=== PATIENT | male | born 1950 | race Caucasian/White ===

== ENCOUNTER 2022-08-08 08:59 | Outpatient (CLI) | payer MEDICARE, SELFPAY ==
[2022-08-08 14:24] LABS: SARS PCR* Negative SARS-CoV-2 (Negative)
== END 2022-08-08 09:00 | disposition home or self-care (01) ==
LOC: FBOREF 08:59
PROVIDERS: Visit Provider Orthopaedic Surgery
DX: Z20.822 Contact with and (suspected) exposure to COVID-19 (principal)
CPT/HCPCS: 87635

== ENCOUNTER 2022-08-24 09:00 | Outpatient (CLI) | payer MEDICARE, SELFPAY ==
--- OUTSIDE RECORDS SUMMARY | 2022-08-24 09:08 | XMS_ITS | Encounter Summary ---
:1950 Author Organization Department [facility] Address [address] [place] [id number] Support Name Relationship Address Phone GARETH ALTMAN Unavailable [phone] [phone] [place] [address] GARETH ALTMAN Unavailable [phone] [place] [address] Insurance Providers: All historical and current Section Date Range: From patient's date of to the date document was created.This section includes the names of all active insurance providers for the patient. Insurance Type of Plan Start of End of Group Member Insurance Policy P atient's Provider Coverage Name Policy Policy Number ID Provider's Fuentes's Relationship Coverage Coverage Telephone Name to Policy Number Fuentes MEDICARE MEDICARE PART February 06, PART A [id number] HARMEN ING PATIENT (WNR) (M) A [id number] ,[place] MEDICARE MEDICARE PART February 06, PART B [phone] HARMEN ING PATIENT (WNR) (M) B [id number] ,[place] MEDICARE MEDICARE PART February 06, PART A [id number] HARMEN ING PATIENT (WNR) (M) A [id number] ,[place] MEDICARE MEDICARE PART February 06, PART B [id number] HARMEN ING PATIENT (WNR) (M) B [id number] ,[place] MEDICARE MEDICARE PART February 06, PART A [id number] HARMEN ING PATIENT (WNR) (M) A [id number] ,[place] MEDICARE MEDICARE PART February 06, PART B [id number] HARMEN ING PATIENT (WNR) (M) B [id number] [place] MEDICARE MEDICARE PART February 06, PART A [id number] KY[address] Daniel ATIENT (WNR) (M) A [id number] [phone] ,[place] MEDICARE MEDICARE PART February 06, PART B [id number] KYARA Daniel ATIENT (WNR) (M) B [id number] [phone] ,[place] Selected Encounter This section includes the information on record at [place] for the Encounter. Date/Time Encounter Type Encounter Reason Provider Source Description Nov 18, 2021 05:06 Outpatient PRIMARY DINORAH STORY PM Encounter CARE/MEDICINE [facility] Encounter Template Text not used by [place] Plan of Treatment: Future Appointments (+ 6 months) and Future Tests (+/- 45 days) The Plan of Treatment section includes future care activities for the patient from all [place] treatmentfacilities. This section includes future appointments and future orders which are active, pending orscheduled.Future Appointments This section includes appointments that were scheduled to occur 6 months from the date of the Encounter, up to a maximum of 20 appointments. The data comes from all [place] treatment facilities. Appointment Date/Time Appointment Type Appointment Facili ty Name Jan 14, 2022 11:00 AM [facility]ORY - [facility]IC[facility] Jan 14, 2022 11:40 AM [facility] - [facility] Jan 28, 2022 07:00 AM AMBULATORY - NONE [facility] Feb 01, 2022 09:00 AM AMBULATORY [facility] Encounter Notes: All associated encounter notes This section contains the clinical notes associated to the Encounter. Date/Time Encounter Note(s) Provider Source Nov 18, 2021 05:06 PM PRIMARY CARE SECURE MESSAGING: Cl STORY [facility] LOCAL TITLE: PRIMARY CARE SECURE MESSAGING STANDARD TITLE: PRIMARY CARE SECURE MESSAGING DATE OF NOTE: NOV 18, 2021@17:06 ENTRY DATE: NOV 18, 2021@17:06:58 AUTHOR: DINORAH STORY EXP COSIGNER: URGENCY: STATUS: COMPLETED ------Original Message Sent: 11/18/2021 10:35 AM From: VIELKA SPARROW To: [email or web address] Subject: Prescription refill Dr. Campbell, I don't know who to ask, so I ho pe you can research or direct me. I submitted a prescription refill #[id number] on 09/29/21. I have not yet received it. I did already get the bill and paid it. I live at [address] [place] [address] dr Mccoy [place] up until December 06. Thank-You ------Original Message Sent: 11/18/2021 05:06 PM From: DINORAH STORY To: VIELKA SPARROW Subject: Prescription refill Looking at your chart, It appears that the prescription was mailed to y our [place] address. That's the only address we have on file for you. In the future, what you need to do is tell the H front staff your local address and the dates you will be at that location. Unless they add that to file, all meds will be mailed t o whatever address we have for you. You can also call the pharmacy at [phone], ext [phone] and discuss your concerns and questions about bi lling. Hope that helps. Dr. Lopez /ayshira/ DINORAH STORY DO PRIMARY CARE PHYSICIAN Signed: 11/18/2021 17:06
--- OUTSIDE RECORDS SUMMARY | 2022-08-24 09:08 | XMS_ITS | Continuity of Care Document ---
:1950 Author Organization [facility] Care Team Providers Name Role Phone [facility] Unavailable Unavailable Problems Combined list of problems from Department of Defense and Veterans Affairs facilities. It does not include entries that were removed or entered in error. Problem Status Onset Problem Date of Comments Source Date Type Resolution Polyp Colon (SCT Active 09/24/20 Condition Oct 21, IPPEWA [id number]) 2019 Entered [facility] By: REI SALDIVAR Comment: Tubular adenomata x 2, each 4 or 5 mm, ascending colon. Dr. Aubrie Weber. Repeat colonoscopy in 2023 Alcohol dependence Active Condition [facility] (SNOMED CT [id number]) CLINIC Bilateral Active Condition [facility] osteoarthritis of CL INIC knees Bilateral sensory Active Condition [facility] hearing loss [facility] Cataract Active Condition [facility] Erectile dysfunction Active Condition [facility] (SNOMED CT CLINIC [id number]) Herpes zoster Active Condition Jan 14, [facility] 2021 Entered [facility] By: CARMEN GARCIA Comment: 12/2021 History of male Active Condition [facility] erectile disorder CL INIC Osteoarthritis of Active Condition [facility] left knee joint CLIN IC (SNOMED CT [id number]) Tinnitus Active Condition [facility] CLINIC Tobacco use (SNOMED Active Condition [facility] CT [id number]) CLINIC Diagnosis: ICD-10-CM Active Diagnosis [facility] Z01.818 Encounter [facility] for other preprocedural examinationwith Provider Comments: PreOp Exam Diagnosis: ICD-10-CM Active Diagnosis [place] Z71.9 Counseling, [place] [facility] unspecifiedwith Provider Comments: Counseling, unspecified Diagnosis: ICD-10-CM Active Diagnosis [facility] M17.12 Unilateral [facility] primary osteoarthritis, left kneewith Provider Comments: Osteoarthritis of left knee joint (SCT 927662050817411) Diagnosis: ICD-10-CM Active Diagnosis [facility] B02.9 Zoster without [facility] complicationswith Provider Comments: Herpes zoster (SCT [id number]) Diagnosis: ICD-10-CM Active Diagnosis [place] H90.3 Sensorineural CLINIC hearing loss, bilateralwith Provider Comments: Sensorineural Hearing Loss, Bilateral Diagnosis: ICD-10-CM Active Diagnosis [facility] Z46.1 Encounter for [facility] fitting and adjustment of hearing aidwith Provider Comments: Fit/Adjust of Hearing Aid Medications Combined list of outpatient medications from Department of Defense and Veterans Affairs facilities. Medications provided include 1) outpatient medications from the last 15 months, and 2) patient-reported medications. Medication Details Route Status Patient Prescription Prescription Last Ordering Order Source Instructions Expires Number Dispense Provider Date Date ASPIRIN TAKE ONE ORALLY ACTIVE [address] . 325MG TAB TABLET [place]H [place]ON 2010 YURI BY MOUTH [facility] EVERY CLINIC DAY ASPIRIN TAKE ONE ORAL ACTIVE HANYZESKI 01/01/ C.W . 81MG TAB,EC TABLET ,DINORAH K 2019 BILL BY MOUTH YOUNG EVERY DEPT OF DAY [facility] HERBAL MISC TAKE ORAL ACTIVE HANYZESKI 01/01/ C. W. CAP/TAB HERBAL ,DINORAH K 2019 BILL CAP/TAB FIBER YOUNG BLEND BY DEPT OF MOUTH [facility] EVERY DAY HERBAL MISC TAKE ORAL ACTIVE HANYZESKI 01/01/ C. W. CAP/TAB BARLEY ,DINORAH K 2019 BILL CAP/TAB GREEN BY YOUNG MOUTH DEPT OF EVERY [facility] DAY MULTIVITAMI TAKE ONE ORALLY ACTIVE MARYELLEN, 04/27 / [facility] NS CAP/TAB TABLET NANCIE D 2016 [facility] BY MOUTH [facility] EVERY DAY NON [facility] MED USE ACTIVE MARYELLEN, 11/01/ ST. NOT LISTED HERBAL NANCIE D 2013 YURI [place] BLEND CLINIC Oral DAILY NON [facility] MED USE ACTIVE MARYELLEN, 11/01/ ST. NOT LISTED BARLEY NANCIE D 2013 YURI [place] oral CLINIC DAILY SILDENAFIL TAKE ORAL 01/05/2022 [id number] HANYZE SKI 03/01/ C.W. CITRATE ONE-HALF 1 ,DINORAH K 2020 BILL 100MG TAB TABLET YOUNG BY MOUTH DEPT OF ONE HOUR [facility] BEFORE SEXUAL RELATION S - DO NOT TAKE MORE THAN 1 DOSE PER DAY (*90 DAY SUPPLY*) Allergies, Adverse Reactions, Alerts Combined list of allergies from Department of Defense and Veterans Affairs facilities. It does not include entries that were removed or entered in error. Substance Category Reaction Severity Reaction Status Date Comments S ource type Reported CODEINE Propensity Nausea Propensity active [place] to adverse and to adverse 4 S [facility] reactions vomiting reactions to drug to drug (finding) (finding) OXYCODONE Propensity Propensity active [facility] BILL to adverse to adverse 0 YO [facility] reactions reactions OF [facility] to drug to drug (finding) (finding) Immunizations Combined list of available immunizations from the Department of Defense and Veterans Affairs facilities. 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 Order Results Value Reference Date Interpretation Specimen Commen ts Source Name Range CBC LEUKOCYTES 6.34 4.0 - 11.0 07/25 Specimen T ype: BLOOD [facility] [#/VOLUME] /2021 No comment en tered. [facility] IN BLOOD Ordering Provi fatoumata: MAURICE GARCIA BY Report Released Date/Time: Jul 23, 2022 10:48 AM AUTOMATED Reporting Lab : [facility] [address] [place] [address] Performing Lab: [facility] [place] [address] CBC ERYTHROCYT 5.10 4.6 - 6.2 07/25 Specimen Ty pe: BLOOD [facility] ES /2021 No comment enter ed. BROWN [#/VOLUME] Ordering Pro vider: MAURICE GARCIA IN BLOOD Report Release d Date/Time: Jul 23, 2022 10:48 AM BY Reporting Lab: [facility] [address] [facility] [address] COUNT Performing Lab: [facility] [address] [place] [facility] [address] CBC HEMOGLOBIN 16.5 13.5 - 07/25 Specimen Type : BLOOD [facility] [facility] [MASS/VOLU 17.9 No comment sanford BROWN ME] IN Ordering Provid er: MAURICE GARCIA BLOOD Report Released Date/Time: Jul 23, 2022 10:48 AM Reporting Lab: [facility] [address] [place] [facility] [address] Performing Lab: [facility] [address] [place] [facility] [address] CBC HEMATOCRIT 47.9 41 - 54 07/25 Specimen Type : BLOOD [facility] [facility] [VOLUME /2021 No comment enter ed. BROWN FRACTION] Ordering Prov ider: MAURICE GARCIA [facility] OF BLOOD Report Release d Date/Time: Jul 23, 2022 10:48 AM BY Reporting Lab: [facility] [address] [facility] [address] COUNT Performing Lab: [facility] [address] [place] [facility] [address] CBC MCV 93.9 80 - 100 07/25 Specimen Type: BLOOD [facility] [ENTITIC /2021 No comment ente red. BROWN VOLUME] BY Ordering Pro vider: MAURICE GARCIA CBOC AUTOMATED Report Releas ed Date/Time: Jul 23, 2022 10:48 AM COUNT Reporting Lab: [facility] [address] [place] [facility] [address] Performing Lab: [facility] [address] [place] [facility] [address] CBC MCH 32.4 27 - 33 07/25 Specimen Type: B LOOD [facility] [ENTITIC /2021 No comment ente red. BROWN MASS] BY Ordering Provi fatoumata: MAURICE GARCIA CBOC AUTOMATED Report Releas ed Date/Time: Jul 23, 2022 10:48 AM COUNT Reporting Lab: [facility] [address] [place] [facility] [address] Performing Lab: [facility] [address] [place] [facility] [address] CBC MCHC 34.4 32.0 - 07/25 Specimen Type: B LOOD [place] [facility] [MASS/VOLU 37.5 No comment en tered. BROWN ME] BY Ordering Provid er: MAURICE GARCIA CBOC AUTOMATED Report Releas ed Date/Time: Jul 23, 2022 10:48 AM COUNT Reporting Lab: [facility] [address] [place] [facility] [address] Performing Lab: [facility] [address] [place] [facility] [address] CBC PLATELETS 245 150 - 400 07/25 Specimen Typ e: BLOOD [place] [facility] [#/VOLUME] /2021 No comment en tered. [facility] IN BLOOD Ordering Provi fatoumata: MAURICE GARCIA CBOC BY Report Released Date/Time: Jul 23, 2022 10:48 AM AUTOMATED Reporting Lab : [facility] [address] [place] [address] Performing Lab: [facility] [address] [place] [address] CBC PLATELET 11.2 7.4 - 10.4 07/25 H Specimen Typ e: BLOOD [facility] MEAN /2021 No comment enter ed. KEVIN VOLUME Ordering Provid er: MAURICE GARCIA CBOC [ENTITIC Report Release d Date/Time: Jul 23, 2022 10:48 AM VOLUME] IN Reporting La b: [facility] [place] [address] AUTOMATED Performing La b: [facility] [address] [place] [address] CBC ERYTHROCYT 12.8 11.5 - 07/25 Specimen Type : BLOOD [facility] E 14.5 No comment enter divya. KEVIN DISTRIBUTI Ordering Pro vider: MAURICE GARCIA [facility]OC ON WIDTH Report Release d Date/Time: Jul 23, 2022 10:48 AM [RATIO] BY Reporting La b: [facility] [place] [address] COUNT Performing Lab: [facility] [place] [address] COMPREHEN CREATININE 0.9 0.7 - 1.2 07/25 Specimen Type: PLASMA [facility] SIVE [MASS/VOLU /2021 No comment en skyla. KEVIN METABOLIC ME] IN Ordering Prov ider: MAURICE GARCIA CBOC PANEL+MG SERUM OR Report Releas ed Date/Time: Jul 23, 2022 10:48 AM PLASMA Reporting Lab: [facility] [place] [address] Performing Lab: [facility] [place] [address] COMPREHEN UREA 15 8 - 26 07/25 Specimen Type: PLASMA [facility] SIVE NITROGEN /2021 No comment melnai BROWN METABOLIC [MASS/VOLU Ordering P rovider: MAURICE GARCIA CBOC PANEL+MG ME] IN Report Release d Date/Time: Jul 23, 2022 10:48 AM SERUM OR Reporting Lab: [facility] [address] [place] [facility] [address] Performing Lab: [facility] [address] [place] [facility] [address] COMPREHEN GLUCOSE 114 70 - 100 10 H Specimen Type : PLASMA [facility] SIVE [MASS/VOL No comment en tered. KEVIN METABOLIC ME] IN Ordering Prov ider: MAURICE GARCIA CBOC PANEL+MG SERUM OR Report Releas ed Date/Time: Jul 23, 2022 10:48 AM PLASMA Reporting Lab: [facility] [address] [place] [facility] [address] Performing Lab: [facility] [address] [place] [facility] [address] COMPREHEN SODIUM 136 136 - 145 07/25 Specimen Typ e: PLASMA [facility] SIVE [MOLE/ No comment en tered. KEVIN METABOLIC UME] IN Ordering Prov ider: MAURICE GARCIA CBOC PANEL+MG SERUM OR Report Releas ed Date/Time: Jul 23, 2022 10:48 AM PLASMA Reporting Lab: [facility] [address] [place] [facility] [address] Performing Lab: [facility] [address] [place] [facility] [address] COMPREHEN POTASSIUM 3.9 3.5 - 5.1 07/25 Specimen T ype: PLASMA [facility] SIVE [/ No comment en tered. KEVIN METABOLIC UME] IN Ordering Prov ider: MAURICE GARCIA CBOC PANEL+MG SERUM OR Report Releas ed Date/Time: Jul 23, 2022 10:48 AM PLASMA Reporting Lab: [facility] [address] [place] [facility] [address] Performing Lab: [facility] [address] [place] [facility] [address] COMPREHEN CHLORIDE 103 98 - 107 07/25 Specimen Typ e: PLASMA [facility] SIVE [MOLE/ No comment en tered. BROWN METABOLIC UME] IN Ordering Prov ider: MAURICE GARCIA CBOC PANEL+MG SERUM OR Report Releas ed Date/Time: Jul 23, 2022 10:48 AM PLASMA Reporting Lab: [facility] [address] [place] [facility] [address] Performing Lab: [facility] [address] [place] [facility] [address] COMPREHEN CARBON 28 22 - 29 07/25 Specimen Type: PLASMA [facility] SIVE DIOXIDE /2021 No comment melani [facility] METABOLIC TOTAL Ordering Prov ider: MAURICE GARCIA [facility]OC PANEL+MG [MOLES/VOL Report Rele ased Date/Time: Jul 23, 2022 10:48 AM UME] IN Reporting Lab: [facility] SERUM OR [address] [place] [facility] [address] PLASMA Performing Lab: [facility] [address] [place] [facility] [address] COMPREHEN CALCIUM 9.4 8.4 - 10.2 07/25 Specimen Ty pe: PLASMA [facility] SIVE [MASS/VOLU /2021 No comment sanford [facility] METABOLIC ME] IN Ordering Prov ider: MAURICE GARCIA CBOC PANEL+MG SERUM OR Report Releas ed Date/Time: Jul 23, 2022 10:48 AM PLASMA Reporting Lab: [facility] [address] [place] [facility] [address] Performing Lab: [facility] [address] [place] [facility] [address] COMPREHEN PROTEIN 7.0 6.0 - 8.3 07/25 Specimen Typ e: PLASMA [facility] SIVE [MASS/VOLU /2021 No comment sanford BROWN METABOLIC ME] IN Ordering Prov ider: MAURICE GARCIA CBOC PANEL+MG SERUM OR Report Releas ed Date/Time: Jul 23, 2022 10:48 AM PLASMA Reporting Lab: [facility] [address] [place] [facility] [address] Performing Lab: [facility] [address] [place] [facility] [address] COMPREHEN ALBUMIN 4.2 3.5 - 5.2 07/25 Specimen Typ e: PLASMA [facility] SIVE [MASS/VOLU /2021 No comment en tered. BROWN METABOLIC ME] IN Ordering Prov ider: MAURICE GARCIA CBOC PANEL+MG SERUM OR Report Releas ed Date/Time: Jul 23, 2022 10:48 AM PLASMA Reporting Lab: [facility] [address] [place] [facility] [address] Performing Lab: [facility] [address] [place] [facility] [address] COMPREHEN BILIRUBIN. 0.6 0.2 - 1.2 07/25 Specimen Type: PLASMA [facility] SIVE TOTAL /2021 No comment enter ed. KEVIN METABOLIC [MASS/VOLU Ordering P rovider: MAURICE GARCIA CBOC PANEL+MG ME] IN Report Release d Date/Time: Jul 23, 2022 10:48 AM SERUM OR Reporting Lab: [facility] [address] [place] [facility] [address] Performing Lab: [facility] [address] [place] [facility] [address] COMPREHEN MAGNESIUM 2.1 1.6 - 2.6 07/25 Specimen T ype: PLASMA [facility] SIVE [MASS/VOLU /2021 No comment en tered. KEVIN METABOLIC ME] IN Ordering Prov ider: MAURICE GARCIA CBOC PANEL+MG SERUM OR Report Releas ed Date/Time: Jul 23, 2022 10:48 AM PLASMA Reporting Lab: [facility] [address] [place] [facility] [address] Performing Lab: [facility] [address] [place] [facility] [address] COMPREHEN ANION GAP 5 5 - 15 07/25 Specimen Typ e: PLASMA [facility] SIVE IN SERUM /2021 No comment ente red. KEVIN METABOLIC OR PLASMA Ordering Pr ovider: MAURICE GARCIA CBOC PANEL+MG Report Release d Date/Time: Jul 23, 2022 10:48 AM Reporting Lab: [facility] [address] [place] [facility] [address] Performing Lab: [facility] [address] [place] [facility] [address] COMPREHEN ALKALINE 62 40 - 150 07/25 Specimen Typ e: PLASMA [facility] SIVE PHOSPHATAS /2021 No comment en tered. KEVIN METABOLIC E Ordering Prov ider: MAURICE GARCIA [facility]OC PANEL+MG [ENZYMATIC Report Rele ased Date/Time: Jul 23, 2022 10:48 AM ACTIVITY/V Reporting La b: [facility] OLUME] IN [address] [facility] [address] SERUM OR Performing Lab : [facility] PLASMA [address] [place] [facility] [address] COMPREHEN ALANINE 16 <55 - 55 07/25 Specimen Type : PLASMA [facility] SIVE AMINOTRANS /2021 No comment en tered. KEVIN METABOLIC FERASE Ordering Prov ider: MAURICE GARCIA CBOC PANEL+MG [ENZYMATIC Report Rele ased Date/Time: Jul 23, 2022 10:48 AM ACTIVITY/V Reporting La b: [facility] OLU[facility]] IN [address] [facility] [address] [facility] [address] SERUM OR Performing Lab : [facility] [address] [place] [facility] [address] COMPREHEN ASPARTATE 17 <34 - 34 07/25 Specimen Ty pe: PLASMA [facility] SIVE AMINOTRANS /2021 No comment en tered. BROWN METABOLIC FERASE Ordering Prov ider: MAURICE GARCIA CBOC PANEL+MG [ENZYMATIC Report Rele ased Date/Time: Jul 23, 2022 10:48 AM ACTIVITY/V Reporting La b: [facility]] IN ONE [facility] [address] SERUM OR Performing Lab : [facility] [address] [place] [facility] [address] COMPREHEN GLOMERULAR >90 60 07/25 Specimen Ty pe: PLASMA [facility] SIVE FILTRATION /2021 No comment en tered. KEVIN METABOLIC RATE/1.73 Ordering Pr ovider: MAURICE GARCIA CBOC PANEL+MG SQ Report Release d Date/Time: Jul 23, 2022 10:48 AM M.PREDICTE Reporting La b: [facility] D [VOLUME [facility] [address] RATE/AREA] Performing L ab: [facility] IN SERUM, ONE [facility] [address] PLASMA OR BLOOD BY CREATININE -BASED FORMULA (CKD-EPI) CBC LEUKOCYTES 6.72 4.0 - 11.0 01/14 Specimen T ype: BLOOD [facility] [#/VOLUME] /2021 No comment en tered. [facility] IN BLOOD Ordering Provi fatoumata: MAURICE GARCIA CBOC BY Report Released Date/Time: Jan 14, 2022 07:54 AM AUTOMATED Reporting Lab : [facility] [address] [place] [facility] [address] Performing Lab: [facility] [address] [place] [facility] [address] CBC ERYTHROCYT 4.76 4.6 - 6.2 01/14 Specimen Ty pe: BLOOD [facility] ES /2021 No comment enter ed. KEVIN [#/VOLUME] Ordering Pro vider: MAURICE GARCIA [facility] IN BLOOD Report Release d Date/Time: Jan 14, 2022 07:54 AM BY Reporting Lab: [facility]ATED [facility] [place] [facility] [address] COUNT Performing Lab: [facility] [address] [place] [address] CBC HEMOGLOBIN 15.4 13.5 - 01/14 Specimen Type : BLOOD [facility] [MASS/VOLU 17.9 No comment en tered. BROWN ME] IN Ordering Provid er: MAURICE GARCIA BLOOD Report Released Date/Time: Jan 14, 2022 07:54 AM Reporting Lab: [facility] [address] [place] [facility] [address] Performing Lab: [facility] [place] [address] CBC HEMATOCRIT 46.0 41 - 54 01/14 Specimen Type : BLOOD [facility] [VOLUME /2021 No comment enter ed. BROWN FRACTION] Ordering Prov ider: MAURICE GARCIA OF BLOOD Report Release d Date/Time: Jan 14, 2022 07:54 AM BY Reporting Lab: [facility] [place] [facility] [address] COUNT Performing Lab: [facility] [address] [place] [facility] [address] CBC MCV 96.6 80 - 100 01/14 Specimen Type: BLOOD [facility] [ENTITIC No comment melani sharpe BROWN VOLUME] BY Ordering Pro vider: MAURICE GARCIA CBOC AUTOMATED Report Releas ed Date/Time: Jan 14, 2022 07:54 AM COUNT Reporting Lab: [facility] [address] [place] [facility] [address] Performing Lab: [facility] [address] [place] [facility] [address] CBC MCH 32.4 27 - 33 01/14 Specimen Type: B LOOD [facility] [ENTITIC /2021 No comment ente red. BROWN MASS] BY Ordering Provi fatoumata: MAURICE GARCIA CBOC AUTOMATED Report Releas ed Date/Time: Jan 14, 2022 07:54 AM COUNT Reporting Lab: [facility] [address] [place] [facility] [address] Performing Lab: [facility] [place] [address] CBC MCHC 33.5 32.0 - 01/14 Specimen Type: B LOOD [facility] [MASS/VOLU 37.5 /2021 No comment en tered. BROWN ME] BY Ordering Provid er: MAURICE GARCIA CBOC AUTOMATED Report Releas ed Date/Time: Jan 14, 2022 07:54 AM COUNT Reporting Lab: [facility] [address] [place] [address] Performing Lab: [facility] [address] [place] [address] CBC PLATELETS 268 150 - 400 01/14 Specimen Typ e: BLOOD [facility] [#/VOLUME] /2021 No comment en tered. BROWN IN BLOOD Ordering Provi fatoumata: MAURICE GARCIA CBOC BY Report Released Date/Time: Jan 14, 2022 07:54 AM AUTOMATED Reporting Lab : [facility] [address] [place] [address] Performing Lab: [facility] [address] [place] [address] CBC PLATELET 10.4 7.4 - 10.4 01/14 Specimen Typ e: BLOOD [facility] MEAN /2021 No comment enter ed. KEVIN VOLUME Ordering Provid er: MAURICE GARCIA CBOC [ENTITIC Report Release d Date/Time: Jan 14, 2022 07:54 AM VOLUME] IN Reporting La b: [facility] BLOOD BY [address] [place] [facility] [address] AUTOMATED Performing La b: [facility] [place] [address] CBC ERYTHROCYT 12.8 11.5 - 01/14 Specimen Type : BLOOD [facility] E 14.5 No comment enter ed. KEVIN DISTRIBUTI Ordering Pro vider: MAURICE GARCIA ON WIDTH Report Release d Date/Time: Jan 14, 2022 07:54 AM [RATIO] BY Reporting La b: [facility] [address] [facility] [address] COUNT Performing Lab: [facility] [address] [place] [address] HEMOGLOBI HEMOGLOBIN 5.3 4.0 - 6.0 01/14 Specimen Type: BLOOD [facility] N A1C A1C/HEMOGL /2021 No comment en tered. BROWN OBIN.TOTAL Ordering Pro vider: MAURICE GARCIA IN BLOOD Report Release d Date/Time: Jan 14, 2022 07:54 AM Reporting Lab: [facility] [address] [place] [address] Performing Lab: [facility] [place] [address] VIT D 25-HYDROXY 60 12 - 50 01/14 H Specimen Type : SERUM [facility] C 25-OH,TOT VITAMIN D3 /2021 No comment entered. KEVIN AL [MASS/VOLU Ordering Pro vider: MAURICE GARCIA CBOC ME] IN Report Released Date/Time: Jan 14, 2022 07:54 AM SERUM OR Reporting Lab: [facility] [address] [place] [facility] [address] Performing Lab: [facility] [address] [place] [facility] [address] COMPREHEN CREATININE 0.9 0.7 - 1.2 01/14 Specimen Type: PLASMA [facility] SIVE [MASS/VOLU /2021 No comment en tered. BROWN METABOLIC ME] IN Ordering Prov ider: MAURICE GARCIA CBOC PANEL+MG SERUM OR Report Releas ed Date/Time: Jan 14, 2022 07:54 AM PLASMA Reporting Lab: [facility] [address] [place] [facility] [address] Performing Lab: [facility] [address] [place] [facility] [address] COMPREHEN UREA 11 8 - 26 01/14 Specimen Type: PLASMA [facility] SIVE NITROGEN /2021 No comment ente redMulu BROWN METABOLIC [MASS/VOLU Ordering P rovider: MAURICE GARCIA CBOC PANEL+MG ME] IN Report Release d Date/Time: Jan 14, 2022 07:54 AM SERUM OR Reporting Lab: [facility] [address] [place] [facility] [address] Performing Lab: [facility] [address] [place] [facility] [address] COMPREHEN GLUCOSE 96 74 - 100 01/14 Specimen Type : PLASMA [facility] SIVE [MASS/VOLU /2021 No comment en tered. BROWN METABOLIC ME] IN Ordering Prov ider: MAURICE GARCIA CBOC PANEL+MG SERUM OR Report Releas ed Date/Time: Jan 14, 2022 07:54 AM PLASMA Reporting Lab: [facility] [address] [place] [facility] [address] Performing Lab: [facility] [address] [place] [facility] [address] COMPREHEN SODIUM 141 136 - 145 01/14 Specimen Typ e: PLASMA SOCORRO C SIVE [MOLES/VOL /2021 No comment en tered. BROWN METABOLIC UME] IN Ordering Prov ider: MAURICE GARCIA [facility] PANEL+MG SERUM OR Report Relea sed Date/Time: Jan 14, 2022 07:54 AM PLASMA Reporting Lab: [facility] [address] [place] [facility] [address] Performing Lab: [facility] [address] [place] [facility] [address] COMPREHEN POTASSIUM 4.4 3.5 - 5.1 01/14 Specimen T ype: PLASMA SOCORRO C SIVE [MOLES/VOL /2021 No comment en tered. BROWN METABOLIC UME] IN Ordering Prov ider: MAURICE GARCIA [facility] PANEL+MG SERUM OR Report Releas ed Date/Time: Jan 14, 2022 07:54 AM PLASMA Reporting Lab: [facility] [address] [place] [facility] [address] Performing Lab: [facility] [address] [place] [facility] [address] COMPREHEN CHLORIDE 103 98 - 107 01/14 Specimen Typ e: PLASMA SOCORRO C SIVE [MOLES/VOL No comment en tered. BROWN METABOLIC UME] IN Ordering Prov ider: MAURICE GARCIA CBOC PANEL+MG SERUM OR Report Releas ed Date/Time: Jan 14, 2022 07:54 AM PLASMA Reporting Lab: [facility] [address] [place] [facility] [address] Performing Lab: [facility] [address] [place] [facility] [address] COMPREHEN CARBON 24 22 - 29 01/14 Specimen Type: PLASMA [facility] C SIVE DIOXIDE, /2021 No comment entantonella red. BROWN METABOLIC TOTAL Ordering Prov ider: MAURICE GARCIA CBOC PANEL+MG [MOLES/VOL Report Rele ased Date/Time: Jan 14, 2022 07:54 AM UME] IN Reporting Lab: [facility] SERUM OR [address] [place] [facility] [address] PLASMA Performing Lab: [facility] [address] [place] [facility] [address] COMPREHEN CALCIUM 9.9 8.4 - 10.2 01/14 Specimen Ty pe: PLASMA SOCORRO C SIVE [MASS/VOLU /2021 No comment en tered. BROWN METABOLIC ME] IN Ordering Prov ider: NSUBUGA,MAURICE N CBOC PANEL+MG SERUM OR Report Releas ed Date/Time: Jan 14, 2022 07:54 AM PLASMA Reporting Lab: [facility] [address] [place] [facility] [address] Performing Lab: [facility] [address] [place] [facility] [address] COMPREHEN PROTEIN 7.1 6.0 - 8.3 01/14 Specimen Typ e: PLASMA [facility]RO C SIVE [MASS/VOLU /2021 No comment en tered. KEVIN METABOLIC ME] IN Ordering Prov ider: MAURICE GARCIA CBOC PANEL+MG SERUM OR Report Releas ed Date/Time: Jan 14, 2022 07:54 AM PLASMA Reporting Lab: [facility] [address] [place] [facility] [address] Performing Lab: [facility] [address] [place] [facility] [address] COMPREHEN ALBUMIN 4.4 3.5 - 5.2 01/14 Specimen Typ e: PLASMA SOCORRO C SIVE [MASS/VOLU /2021 No comment en tered. KEVIN METABOLIC ME] IN Ordering Prov ider: MAURICE GARCIA CBOC PANEL+MG SERUM OR Report Releas ed Date/Time: Jan 14, 2022 07:54 AM PLASMA Reporting Lab: [facility] [address] [place] [facility] [address] Performing Lab: [facility] [address] [place] [facility] [address] COMPREHEN BILIRUBIN. 0.9 0.2 - 1.2 01/14 Specimen Type: PLASMA SOC[facility]RO C SIVE TOTAL /2021 No comment enter ed. KEVIN METABOLIC [MASS/VOLU Ordering P rovider: MAURICE GARCIA CBOC PANEL+MG ME] IN Report Release d Date/Time: Jan 14, 2022 07:54 AM SERUM OR Reporting Lab: [facility] [address] [place] [facility] [address] Performing Lab: [facility] [address] [place] [facility] [address] COMPREHEN MAGNESIUM 2.1 1.6 - 2.6 01/14 Specimen T ype: PLASMA SOCORRO C SIVE [MASS/VOLU /2021 No comment en tered. KEVIN METABOLIC ME] IN Ordering Prov ider: MAURICE GARCIA CBOC PANEL+MG SERUM OR Report Releas ed Date/Time: Jan 14, 2022 07:54 AM PLASMA Reporting Lab: [facility] [address] [place] [facility] [address] Performing Lab: [facility] [address] [place] [facility] [address] COMPREHEN ANION GAP 14 5 - 15 01/14 Specimen Typ e: PLASMA SOCORRO C SIVE IN SERUM /2021 No comment ente red. KEVIN METABOLIC OR PLASMA Ordering Pr ovider: MAURICE GARCIA CBOC PANEL+MG Report Release d Date/Time: Jan 14, 2022 07:54 AM Reporting Lab: [facility] [address] [place] [facility] [address] Performing Lab: [facility] [address] [place] [facility] [address] COMPREHEN ALKALINE 60 40 - 150 01/14 Specimen Typ e: PLASMA SOCORRO C SIVE PHOSPHATAS /2021 No comment en tered. KEVIN METABOLIC E Ordering Prov ider: MAURICE GARCIA CBOC PANEL+MG [ENZYMATIC Report Rele ased Date/Time: Jan 14, 2022 07:54 AM ACTIVITY/V Reporting La b: [facility] OLUME] IN [address] [place] [facility] [address] SERUM OR Performing Lab : [facility] PL[facility]MA [address] [place] [facility] [address] COMPREHEN ALANINE 21 <55 - 55 01/14 Specimen Type : PLASMA SOCORRO C SIVE AMINOTRANS /2021 No comment en tered. KEVIN METABOLIC FERASE Ordering Prov ider: MAURICE GARCIA CBOC PANEL+MG [ENZYMATIC Report Rele ased Date/Time: Jan 14, 2022 07:54 AM ACTIVITY/V Reporting La b: [facility] OLUME] IN [address] [place] [facility] [address] SERUM OR Performing Lab : [facility] [address] [place] [facility] [address] COMPREHEN ASPARTATE 21 <34 - 34 01/14 Specimen Ty pe: PLASMA SOCORRO C SIVE AMINOTRANS /2021 No comment en tered. KEVIN METABOLIC FERASE Ordering Prov ider: MAURICE GARCIA CBOC PANEL+MG [ENZYMATIC Report Rele ased Date/Time: Jan 14, 2022 07:54 AM ACTIVITY/V Reporting La b: [facility] OLUME] IN [address] [facility] [address] [place] [facility] [address] SERUM OR Performing Lab : [facility] PLASMA [address] [place] [place] [facility] [address] COMPREHEN CREAT >90 60 01/14 Specimen Type: PLASMA SOCORRO C SIVE EGFR(CKD-E No comment en tered. BROWN METABOLIC PI) Ordering Prov ider: MAURICE GARCIA CBOC PANEL+MG Report Release d Date/Time: Jan 14, 2022 07:54 AM Reporting Lab: [facility] [address] [place] [place] [facility] [address] Performing Lab: [facility] [address] [place] [facility] [address] TSH THYROTROPI 0.63 0.35 - 01/14 Specimen Type : PLASMA SOCORRO C W/REFLEX N 4.94 /2021 No comment melani BROWN TO FREE [UNITS/VOL Ordering Pro vider: MAURICE GARCIA CBOC T4 UME] IN Report Released Date/Time: Jan 14, 2022 07:54 AM SERUM OR Reporting Lab: [facility] [address] [place] [facility] [address] Performing Lab: [facility] [address] [place] [place] [facility] [address] PSA PROSTATE 2.76 <4.00 - 01/14 Specimen Type: SERUM SOCORRO C SPECIFIC 4. No comment melani BROWN AG Ordering Provid er: MAURICE GARCIA CBOC [MASS/VOLU Report Relea sed Date/Time: Jan 14, 2022 07:54 AM ME] IN Reporting Lab: [facility] SERUM OR [address] [place] [facility] [address] PLASMA Performing Lab: [facility] [address] [place] [facility] [address] LIPID CHOLESTERO 190 <199 - 199 01/14 Specimen T ype: PLASMA SOCORRO C PANEL,FAS L No comment klever BROWN TING [MASS/VOLU Ordering Pro vider: MAURICE GARCIA CBPATSY ME] IN Report Released Date/Time: Jan 14, 2022 11:25 AM SERUM OR Reporting Lab: [facility] [address] [place] [place] [facility] [address] Performing Lab: [facility] [address] [place] [facility] [address] LIPID TRIGLYCERI 119 <149 - 149 01/14 Specimen T ype: PLASMA SOC[facility] C PANEL,FAS DE No comment ent ered. KEVIN COUCHG [MASS/VOLU Ordering Pro vider: MAURICE GARCIA CBOC NE] IN Report Released Date/Time: Jan 14, 2022 11:25 AM SERUM OR Reporting Lab: [facility] [address] [place] [facility] [address] Performing Lab: [facility] [address] [place] [facility] [address] LIPID CHOLESTERO 45 40 04/08 Specimen Type : PLASMA SOCORRO C PANEL,FAS L IN HDL /2021 No comment en tered. KEVIN COUCHG [MASS/VOLU Ordering Pro vider: MAURICE GARCIA CBOC NE] IN Report Released Date/Time: Jan 14, 2022 11:25 AM SERUM OR Reporting Lab: [facility] [address] [place] [facility] [address] Performing Lab: [facility] [address] [place] [facility] [address] LIPID CHOLESTERO 121 <99 - 99 04/08 H Specimen Typ e: PLASMA SOCORRO C PANEL,FAS L IN LDL /2021 No comment en tered. KEVIN TING [MASS/VOLU Ordering Pro vider: [facility]ICE [facility]] IN Report Released Date/Time: Jan 14, 2022 11:25 AM SERUM OR Reporting Lab: [facility] PL[facility] BY ONE [address]i [address] [facility] [address] CALCULATIO Performing L ab: [facility] N [address] [place] [facility] [address] LIPID CHOLESTERO 24 <29 - 29 04/08 Specimen Typ e: PLASMA SOCORRO C PANEL,FAS L IN VLDL /2021 No comment e ntered. KEVIN TING [MASS/VOLU Ordering Pro vider: MAURICE GARCIA CBOC NE] IN Report Released Date/Time: Jan 14, 2022 11:25 AM SERUM OR Reporting Lab: [facility] PLASMA BY ONE [address]i [address] [facility] [address] CALCULATIO Performing L ab: [facility] N [address] [place] [facility] [address] LIPID CHOLESTERO 145 <129 - 129 04/08 H Specimen T ype: PLASMA SOC[facility]RO C PANEL,FAS L NON HDL /2021 No comment e ntered. KEVIN COUCHG [MASS/VOLU Ordering Pro vider: MAURICE GARCIA CBOC ME] IN Report Released Date/Time: Jan 14, 2022 11:25 AM SERUM OR Reporting Lab: [facility] [address] [place] [facility] [address] Performing Lab: [facility] [place] [address] HCV PANEL HEPATITIS Nonreact 12/25 Specimen Ty pe: BLOOD C.W. (SCREENIN C VIRUS AB No comment entered. TIFFANY Jones) [PRESENCE] Ordering Pro vider: DINORAH STORY IN SERUM Report Release d Date/Time: Jan 02, 2020 09:54 AM DEPT OF Reporting Lab: Aliyah [facility] [address] [facility] [address] Performing Lab: Aliyah [facility] [address] [facility] [address] Vital Signs Combined list of inpatient and outpatient Vital Signs from Department of Defense and Veterans Affairs, ranging from 12 months to all on record, depending upon the facility. Vital Sign Value Date Comments Source SYSTOLIC BLOOD PRESSURE 124 08/23/2022 14:48:42 [facility] DIASTOLIC BLOOD PRESSURE 80 08/23/2022 14:48:42 [facility] PULSE OXIMETRY 94% 08/23/2022 14:48:42 [facility] WEIGHT 202 08/23/2022 14:48:42 [facility] BMI 27kg/m2 08/23/2022 14:48:42 [facility] PAIN 0 08/23/2022 14:48:42 [facility] HEIGHT 72 08/23/2022 14:48:42 [facility] TEMPERATURE 98.1 08/23/2022 14:48:42 [facility] PULSE 70 08/23/2022 14:48:42 [facility] SYSTOLIC BLOOD PRESSURE 110 07/25/2022 13:13:58 [facility] DIASTOLIC BLOOD PRESSURE 56 07/25/2022 13:13:58 [facility] PULSE OXIMETRY 97% 07/25/2022 13:13:58 [facility] WEIGHT 199.4 07/25/2022 13:13:58 [facility] BMI 27kg/m2 07/25/2022 13:13:58 [facility] PAIN 0 07/25/2022 13:13:58 [facility] HEIGHT 72 07/25/2022 13:13:58 [facility] TEMPERATURE 98.2 07/25/2022 13:13:58 [facility] PULSE 67 07/25/2022 13:13:58 [facility] SYSTOLIC BLOOD PRESSURE 124 01/14/2022 11:02:05 [facility] DIASTOLIC BLOOD PRESSURE 76 01/14/2022 11:02:05 [facility] WEIGHT 204.4 01/14/2022 11:02:05 [facility] BMI 28kg/m2 01/14/2022 11:02:05 [facility] HEIGHT 72 01/14/2022 11:02:05 [facility] TEMPERATURE 98.2 01/14/2022 11:02:05 [facility] PULSE 72 01/14/2022 11:02:05 [facility] RESPIRATION 20 01/14/2022 11:02:05 [facility] Encounters Combined list of: 1) Encounters from Department of Veterans Affairs facilities going back up to the last 18 months. 2) Encounters from the Department of Defense facilities going back up to 280 months. Location Location Encounter Encounter Reason Attending ADM DC Stat us Disposition Source Details Type Number For Provider Date Date Visit Outpatient 39382-7. Lucius KOCH 03/09 [place] Encounter [id number] [facility] TARGETED 15969-1.51 MADY [place] 03/11 [place] CASE [id number] [place] [address] [facility] 02104-2.61 04/05 [place] Encounter [id number] [facility] Outpatient 30068-4.51 08/18 [place] Encounter [id number] TIFFANY [facility] ENT 77923-2.66 Miguel MAGAÑA,AND 09/08 SA N PROCEDURE/ [id number] is: JUS RAHEL CIS SERVICE ICD-10- CO [facility] CM Z46.1 Encount er for fitting and adjustm ent of hearing aid<br/ >with Provide r Comment s: Fit/Adj ust of Hearing Aid TELEHEALTH 41518-5.51 Diagnos ARCHANA,AND 09/08 [place] [facility] [id number] is: JUS [facility] FEE 30 ICD-10- CLINIC CM H90.3 Sensori neural hearing loss, bilater al
with Provide r Comment s: Sensori neural Hearing Loss, Bilater al Outpatient 53216-4.61 [place]AL [place] 11/18 [place] Encounter [id number] CCA R [facility] Outpatient 67697-0.51 PORSHA, 11/18 C.W. Encounter [id number] DINORAH K SILVIA [facility] TARGETED 29080-1.61 MARYBETH 12/14 [place] CASE [id number] DARREN A [facility] CASE 95777-5.51 BACK[place], 12/14 [place] [facility] [id number] [facility] [address] [facility]IN[facility] Outpatient 33858-0.61 01/14 [place] Encounter [id number] [facility] Outpatient 36786-2.61 Diagnos NSUBUGA, 01/14 [facility] Encounter [id number] is: RISTINE P EARSON 37 ICD-10- CBOC CM B02.9 Zoster without complic ations< br/>wit h Provide r Comment s: Herpes zoster (SCT [id number] ) Outpatient 87408-3.61 NATALIE STAUFFER M 01/17 M [place] Encounter [id number] [facility] Outpatient 76996-2.61 [place] 01/19 [place] Encounter [id number] CCA R [facility] Outpatient 11223-8.61 01/28 [place] Encounter [id number] /2021 [facility] Outpatient 17568-5.61 01/28 [place] Encounter [id number] /2021 [facility] Outpatient 99248-3.61 02/01 [place] Encounter [id number] /2021 [facility] Outpatient 71974-3.61 02/01 [place] Encounter [id number] /2021 [facility] Outpatient 76082-5.61 OPAL [place] 02/16 [place] Encounter [id number] CCA R /2021 [facility] Outpatient 23806-9.61 06/24 [place] En[place] [id number] /2021 [facility] Outpatient 52334-3.61 07/19 [place] En[place] [id number] /[facility]21 [facility] 83119-7. 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
with Provide r Comment s: Osteoar thritis of left knee joint ([facility] [id number]) PRO 38229-1. Diagnos MILDRED FELDMAN 07/28 M [place] PHONE CALL [id number] is: NDRA D FELIPE S [place] 5-10 MIN ICD-10- HCS CM Z71.9 [employer]elance [employer]er ing, unspeci fied
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
with Provide r Comment s: PreOp Exam Social History Combined list of available smoking, tobacco, and other social history from Department of Defense andVeterans Affairs facilities. 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 01/01/2020 [facility] use NO History of tobacco VA-TOBACCO USE MED NO 02/01/2019 [facility] use History of tobacco CURRENT TOBACCO USER 11/24/2017 [facility] use History of tobacco CURRENT TOBACCO USER 04/27/2017 [facility] use History of tobacco CURRENT TOBACCO USER 04/20/2016 [facility] use History of tobacco CURRENT TOBACCO USER 03/11/2015 [facility] use History of tobacco CURRENT TOBACCO USER 11/01/2013 [facility] use History of tobacco CURRENT TOBACCO USER 09/19/2012 [facility] use History of tobacco CURRENT TOBACCO USER 09/15/2011 [facility] use Plan of Care List of future care activities from Department of Veterans Affairs facilities. Additional future care activities may be listed in the Assessment and Plan section. Date/Time Care Activity Care Activity Detail Facility 08/25/2022 AMBULATORY - NONE AM[facility]UL[facility]ORY - NONE [facility]
--- OUTSIDE RECORDS SUMMARY | 2022-08-24 09:08 | XMS_ITS | Encounter Summary ---
:1950 Author Organization [facility] Address [address] [place] [address] Support Name Relationship Address Phone GARETH ALTMAN Unavailable [address] [place] [address] GARETH ALTMAN Unavailable [address] [place] [address] Insurance Providers: All historical and current Section [...] MEDICARE MEDICARE PART February 06, PART A [id number] ANSHUEN ING PATIENT (WNR) (M) A 2014 78A 0 ,[place]EL[place] MEDICARE MEDICARE PART February 06, PART B [id number] HARMEN ING PATIENT (WNR) (M) B 2014 78A 0 ,[place] MEDICARE MEDICARE PART February 06, PART A [id number] HARMEN ING PATIENT (WNR) (M) A 2014 [id number] ,[place] MEDICARE MEDICARE PART February 06, PART B [id number] HARMEN ING PATIENT (WNR) (M) B 2014 [id number] 0 ,[place] MEDICARE MEDICARE PART February 06, PART A [id number] HARMEN ING PATIENT (WNR) (M) A 2014 [id number] 0 ,[place] MEDICARE MEDICARE PART February 06, PART B [id number] HARMEN ING PATIENT (WNR) (M) B 2014 [id number] [place] MEDICARE MEDICARE PART February 06, PART A [id number] HARMENING P ATLEE (WNR) (M) A 2014 [id number] [phone] ,[place] MEDICARE MEDICARE PART February 06, PART B [id number] HARMENING P ATIENT (WNR) (M) B 2014 [id number] VIELKA Selected Encounter This section includes the information on record at OR for the Encounter. Date/Time Encounter Type Encounter Reason Provider Source Description Sep 08, 2021 TELEHEALTH AUDIOLOGY ICD-10-CM H90.3 SARAI MAGAÑA 01:00 PM FACILITY FEE Sensorineural L hearing loss, bilateral with Provider Comments: Sensorineural Hearing Loss, Bilateral IHE Encounter Template Text not used by VA Assessments - Encounter Diagnoses This section includes the primary and secondary diagnoses documented for the Encounter. Date/Time Primary/Secondary Diagnosis Name Provider Source Diagnosis Sep 08, 2021 PRIMARY Sensorineural [facility] 01:19 PM hearing loss, R CLINIC bilateral Plan of Treatment: Future Appointments (+ 6 months) and Future Tests (+/- 45 days) The Plan of Treatment section includes future care activities for the patient from all OR treatmentfacilities. This section includes future appointments and future orders which are active, pending orscheduled.Future Appointments This section includes appointments that were scheduled to occur 6 months from the date of the Encounter, up to a maximum of 20 appointments. The data comes from all OR treatment facilities. Appointment Date/Time Appointment Type Appointment Facili ty Name Jan 14, 2022 11:00 AM AMBULATORY - MEDICINE [facility] Jan 14, 2022 11:40 AM AMB[facility]ATORY - MEDICINE [facility] Jan 28, 2022 07:00 AM AMBULATORY - NONE [facility] Feb 01, 2022 09:00 AM AMBULATORY - NONE [facility] Social History: Smoking Status (Most current) and Tobacco Use (All prior to encounter date) This section includes the most current, and the historical, smoking and tobacco-related health factors from the OR facility where the Encounter took place.Current Smoking Status This section includes the most current smoking, or tobacco-related health factor, from the OR facility where the Encounter took place. Date/Time Current Smoking Status Comment Facility Jan 01, 2021 09:00 AM VA-TOBACCO USER EVERY DAY [facility] Tobacco Use History This section includes a history of the smoking, or tobacco- related health factors, that were collected on or before the date of the Encounter. The data comes from the OR facility where the Encounter took place. 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 NO [facility] Jan 01, 2021 09:00 AM VA-TOBACCO USE MED NO [facility] Jan 01, 2021 09:00 AM VA-TOBACCO USER EVERY DAY [facility] Jan 01, 2020 05:23 PM VA-TOBACCO DOESNT USE WI 30 MIN WAKEUP [facility] Jan 01, 2020 05:23 PM VA-TOBACCO USE > 15 LESS THAN 30 YEARS [facility] Jan 01, 2020 05:23 PM VA-TOBACCO USE ADVICE [facility] Jan 01, 2020 05:23 PM VA-TOBACCO USE ACOUSTIC INTELLIGENCE SPECIALIST NO [facility] Jan 01, 2020 05:23 PM VA-TOBACCO USE MED NO [facility] Jan 01, 2020 05:23 PM VA-TOBACCO USER EVERY DAY [facility] Encounter Notes: All associated encounter notes This section contains the clinical notes associated to the Encounter. Date/Time Encounter Note(s) Provider Source Sep 08, 2021 01:16 PM TELEHEALTH NOTE: BJ CHE [facility] LOCAL TITLE: CLINICAL VIDEO TELEHEALTH NOTE STANDARD TITLE: TELEHEALTH NOTE DATE OF NOTE: SEP 08, 2021@13:16 ENTRY DATE: SEP 08, 2021@13:17:02 AUTHOR: BJ CHE EXP COSIGNER: URGENCY: STATUS: COMPLETED SEP 08, 2021 Patient Identification: The patient has been identified by Full Name, Faisal SSN, Date of Allergies: OXYCODONE Clinical Video Telehealth (C VT) Disclosure & Verbal Informed Consent: Visit was conducted by Telehealth. Verbal consent was obta ined at time of the visit. 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
--- OUTSIDE RECORDS SUMMARY | 2022-08-24 09:08 | XMS_ITS | Encounter Summary ---
:1950 Author Organization [facility] Address [address] [place] [address] Support Name Relationship Address Phone GARETH ALTMAN Unavailable [phone] [phone] [place] [address] GARETH ALTMAN Unavailable [phone] [phone] [place] [address] Insurance Providers: All historical and current Section [...] MEDICARE MEDICARE PART February 06, PART A [id number] ANSHUEN ING PATIENT (WNR) (M) A 2014 [id number] 0 ,[place] MEDICARE MEDICARE PART February 06, PART B [id number] ANSHUEN ING PATIENT (WNR) (M) B 2014 [id number] 0 ,[place] MEDICARE MEDICARE PART February 06, PART A [id number] HARMEN ING PATIENT (WNR) (M) A 2014 [id number] ,[place] MEDICARE MEDICARE PART February 06, PART B [id number] HARMEN ING PATIENT (WNR) (M) B 2014 [id number] ,[place] MEDICARE MEDICARE PART February 06, PART A [id number] HARMEN ING PATIENT (WNR) (M) A 2014 [id number] ,[place] MEDICARE MEDICARE PART February 06, PART B [id number] HARMEN ING PATIENT (WNR) (M) B 2014 [id number] [place] MEDICARE MEDICARE PART February 06, PART A [id number] HARMENING P ATIENT (WNR) (M) A 2014 78A [phone] ,[place] MEDICARE MEDICARE PART February 06, PART B [id number] HARMENING P ATIENT (WNR) (M) B 2014 78A [phone] ,[place] Selected Encounter This section includes the information on record at [place] for the Encounter. Date/Time Encounter Type Encounter Reason Provider Source Description Sep 08, 2021 ENT AUDIOLOGY ICD-10-CM Z46.1 SARAI MAGAÑA 10:01 AM PROCEDURE/SERVI Encounter for L CE fitting and adjustment of hearing aid with Provider Comments: Fit/Adjust of Hearing Aid IHE Encounter Template Text not used by [facility] Assessments - Encounter Diagnoses This section includes the primary and secondary diagnoses documented for the Encounter. Date/Time Primary/Secondary Diagnosis Name Provider Source Diagnosis Sep 09, 2021 PRIMARY Encounter for SARAI MAGAÑA 03:08 PM fitting and L [facility] adjustment of hearing aid Plan of Treatment: Future Appointments (+ 6 months) and Future Tests (+/- 45 days) The Plan of Treatment section includes future care activities for the patient from all [place] treatmentfacilities. This section includes future appointments and future orders which are active, pending orscheduled.Future Appointments This section includes appointments that were scheduled to occur 6 months from the date of the Encounter, up to a maximum of 20 appointments. The data comes from all [place] treatment facilities. Appointment Date/Time Appointment Type Appointment Facili ty Name Jan 14, 2022 11:00 AM AMBULATORY - [facility]ICINE [facility] Jan 14, 2022 11:40 AM [facility]BULATORY - MEDICINE [facility] Jan 28, 2022 07:00 AM AMBULATORY - NONE [facility] Feb 01, 2022 09:00 AM AMBULATORY - NONE [facility] Encounter Notes: All associated encounter notes This section contains the clinical notes associated to the Encounter. Date/Time Encounter Note(s) Provider Source Sep 08, 2021 10:01 AM AUDIOLOGY NOTE: SARAI MAGAÑA [facility] LOCAL TITLE: AUDIOLOGY REPAIR/REMAKE/PROBLEM NO TE STANDARD TITLE: AUDIOLOGY NOTE DATE OF NOTE: SEP 08, 2021@10:01 ENTRY DATE: SEP 08, 2021@10:01:52 AUTHOR: SARAI MAGAÑA EXP COSIGNER: URGENCY: STATUS: COMPLETED Audiology Repair/Modification Note S: Tele Audiology This clinical encounter was completed via Tele A udiology from [facility] to [facility]. Last audiogram in RO[facility] from 2017 at [facility]. Here reporting his left aid was replaced in May 2018 and it came in the mail with a note stating the aid's settings could not be restored. 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 Set to 100% target levels and made slight adjust ments for patient comfort. Ordered batteries and drying capsules in ROES to ship to patient's home P: RTC as needed Time Spent: 30 minutes /yashira/ Slava OVIEDO, [facility] Chief, Rehabilitation Service Signed: 09/09/2021 15:13
--- OUTSIDE RECORDS SUMMARY | 2022-08-24 09:08 | XMS_ITS | Encounter Summary ---
:1950 Author Organization [facility] Address [address] [place] [id number] Support Name Relationship Address Phone GARETH ALTMAN Unavailable [phone] [place] [address] GARETH ALTMAN Unavailable [phone] [place] [address] Insurance Providers: All historical and current Section [...] MEDICARE MEDICARE PART February 06, PART A [id number] HARMEN ING PATIENT (WNR) (M) A 2014 [id number] 0 ,[place] MEDICARE MEDICARE PART February 06, PART B [id number] HARMEN ING PATIENT (WNR) (M) B 2014 78A 0 ,[place] MEDICARE MEDICARE PART February 06, PART A [id number] HARMEN ING PATIENT (WNR) (M) A 2014 [id number] 0 ,[place] MEDICARE MEDICARE PART February 06, PART B [id number] HARMEN ING PATIENT (WNR) (M) B 2014 [id number] 0 ,[place] MEDICARE MEDICARE PART February 06, PART A [id number] HARMEN ING PATIENT (WNR) (M) A 2014 [id number] 0 ,[place] MEDICARE MEDICARE PART February 06, PART B [id number] HARMEN ING PATIENT (WNR) (M) B 2014 [id number] [place] MEDICARE MEDICARE PART February 06, PART A [id number] 800 KYARA NEVES (WNR) (M) A 2014 78O [phone] ,[place] MEDICARE MEDICARE PART February 06, PART B [id number] 800 KYARA NEVES (WNR) (M) B 2014 78A [phone] ,[place] Selected Encounter This section includes the information on record at [place] for the Encounter. Date/Time Encounter Type Encounter Reason Provider Source Description Nov 18, 2021 03:14 Outpatient PRIMARY SONU HI PM Encounter CARE/MEDICINE IHE Encounter Template Text not used by [place] Plan of Treatment: Future Appointments (+ 6 [...] 2022 07:00 AM AMBULATORY - NONE [facility] Feb 01, 2022 09:00 AM AMBULATORY [facility] Encounter Notes: All associated encounter notes This section contains the clinical notes associated to the Encounter. Date/Time Encounter Note(s) Provider Source Nov 18, 2021 03:14 PM PRIMARY CARE SECURE MESSAGING: RUPA HI [facility] LOCAL TITLE: PRIMARY CARE SECURE MESSAGING STANDARD TITLE: PRIMARY CARE SECURE MESSAGING DATE OF NOTE: NOV 18, 2021@15:14:09 ENTRY DATE: NOV 18, 2021@14:14:09 AUTHOR: SONU HI EXP COSIGNER: URGENCY: STATUS: COMPLETED PRIMARY CARE SECURE MESSAGING Has ADDENDA * ------Original Message Sent: 11/16/2021 09:25 AM From: VIELKA RUANO To: [facility]([place]Primary Care, Kris Mo(Red) Subject: Annual physical and Blood test Dr. Mo, I will be returning to [place] about December 16, my address is [address] in [place]. I would like to set up my annual check up and lab work appointment with you at the [facility] in [facility]. 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 I will no longer be a traveling vet, I will have permanent [place] address. If you can help arrange this? OR direct me to the proper channels. Not sure if I should be utilizing the [facility] or the [facility]? Thank-You Vielka Ruano ------Original Message Sent: 11/18/2021 03:14 PM From: SONU HI To: VIELKA RUANO Subject: Annual physical and Blood test I will have one of our schedulers contact you to set up an appointment to establish care. In terms of your address, we stephanie l update that when you come in. WALESKA [facility] [place] /yashira/ Sonu Hi RN Nurse [facility] Signed: 11/18/2021 14:14 11/18/2021 ADDENDUM STATUS: COMPLETED Alerting PRISCILA Medina appointment to establish care with Red PACT. /yashira/ Sonu Hi RN Nurse [facility] Signed: 11/18/2021 14:15 Receipt Acknowledged By: * AWAITING SIGNATURE * KYLER HSIEH
--- OUTSIDE RECORDS SUMMARY | 2022-08-24 09:08 | XMS_ITS | Encounter Summary ---
:1950 Author Organization [facility] Address [address] [place] [address] Support Name Relationship Address Phone GARETH ALTMAN Unavailable [phone] [place] [address] GARETH ALTMAN Unavailable [phone] [phone] [place] [address] Insurance Providers: All historical and current Section [...] MEDICARE MEDICARE PART February 06, PART A [id number] HARMEN ING PATIENT (WNR) (M) A 2014 [id number] ,[place] MEDICARE MEDICARE PART February 06, PART B [id number] HARMEN ING PATIENT (WNR) (M) B 2014 [id number] 0 ,[place] MEDICARE MEDICARE PART February 06, PART A [id number] HARMEN ING PATIENT (WNR) (M) A 2014 [id number] ,[place] MEDICARE MEDICARE PART February 06, PART B [id number] HARMEN ING PATIENT (WNR) (M) B 2014 [id number] 0 ,[place] MEDICARE MEDICARE PART February 06, PART A [id number] HARMEN ING PATIENT (WNR) (M) A 2014 [id number] 0 ,[place] MEDICARE MEDICARE PART February 06, PART B [id number] HARMEN ING PATIENT (WNR) (M) B 2014 [id number] [place] MEDICARE MEDICARE PART February 06, PART A [id number] 800 KYARA Daniel ATIENT (WNR) (M) A 2014 78A [phone] ,[place] MEDICARE MEDICARE PART February 06, PART B [id number] 800 KYARA Daniel ATIENT (WNR) (M) B [id number] [phone] ,[place] Selected Encounter This section includes the information on record at [place] for the Encounter. Date/Time Encounter Type Encounter Reason Provider Source Description Dec 14, 2021 02:08 TARGETED CASE ADMIN PAT ACTIVTIES [facility] ([facility]) IHE Encounter Template Text not used by [place] Plan of Treatment: Future Appointments (+ 6 months) and Future Tests (+/- 45 days) The Plan of Treatment section includes future care activities for the patient [facility] [place] [facility] This section includes future appointments and future orders which are active, pending orscheduled.Future Appointments This section includes appointments that were scheduled to occur 6 months from the date of the Encounter, up to a maximum of 20 appointments. The data comes from all [place] treatment [facility]. Appointment Date/Time Appointment Type Appointment Facili ty Name Jan 14, 2022 11:00 AM AMBULATORY - [facility]INE [facility] Jan 14, 2022 11:40 AM [facility]ORY - [facility]IC[facility] Jan 28, 2022 07:00 AM AMBULATORY - NONE [facility] Feb 01, 2022 09:00 AM AMBULATORY [facility] Active, Pending, and Scheduled Orders This section includes a listing of several types of active, pending, and scheduled orders, including clinic medications orders, diagnostic test orders, procedure orders and consult orders; where the start date of the order is 45 days before the date of the Encounter or 45 days after the date of the Encounter. The data comes from all [place] treatment [facility]. Test Date/Time Test Type Test Details Facility Name Jan 14, 2022 12:00 AM Laboratory - Chemistry [facility] Order ONCE Encounter Notes: All associated encounter notes This section contains the clinical notes associated to the Encounter. Date/Time Encounter Note(s) Provider Source Dec 14, 2021 02:08 CORPORATE STRATEGY INTERN REFERRAL NOTE: MATHEW RUEDA [facility] LOCAL TITLE: TRAVELING PROGRESS NOTE STANDARD TITLE: CORPORATE STRATEGY INTERN REFERRAL NOTE DATE OF NOTE: DEC 14, 2021@14:08 ENTRY DATE: DEC 14, 2021@14:08:47 AUTHOR: MATHEW RUEDA EXP COSIGNER: URGENCY: STATUS: COMPLETED Per 11/18/21 note, moving back to [place] and will no longer be going to [place]. Is requesting to permanently relocate care. Has [facility] appt 01/14/22. /es/ MATHEW RUEDA RN UTILIZATIONMANAGEMENT Signed: 12/14/2021 14:09
--- OUTSIDE RECORDS SUMMARY | 2022-08-24 09:09 | XMS_ITS | Encounter Summary ---
:1950 Author Organization [facility] Address [address] [place] [id number] Support Name Relationship Address Phone GARETH ALTMAN Unavailable [phone] [phone] [place] [address] GARETH ALTMAN Unavailable [phone] [place] [phone] [place] [address] Insurance Providers: All historical and current Section [...] MEDICARE MEDICARE PART February 06, PART A [id number] HARMEN ING PATIENT (WNR) (M) A 2014 [id number] [id number] ,[place] MEDICARE MEDICARE PART February 06, PART B [id number] HARMEN ING PATIENT (WNR) (M) B 2014 [id number] [id number] ,[place] MEDICARE MEDICARE PART February 06, PART A [id number] HARMEN ING PATIENT (WNR) (M) A 2014 [id number] ,[place] MEDICARE MEDICARE PART February 06, PART B [id number] HARMEN ING PATIENT (WNR) (M) B [id number] ,[place] MEDICARE MEDICARE PART February 06, PART A [id number] HARMEN ING PATIENT (WNR) (M) A 2014 [id number] ,[place] MEDICARE MEDICARE PART February 06, PART B [id number] HARMEN ING PATIENT (WNR) (M) B [id number] [place] MEDICARE MEDICARE PART February 06, PART A [id number] KYARA NEVES (WNR) (M) A 2014 [id number] [phone] ,[place] MEDICARE MEDICARE PART February 06, PART B [id number] KYARA NEVES (WNR) (M) B [id number] ,[place] Selected Encounter This section includes the information on record at [facility] for the Encounter. Date/Time Encounter Type Encounter Reason Provider Source Description Jan 14, 2022 Outpatient PRIMARY ICD-10-CM B02.9 NSUBUGA,CARMEN 11:00 AM Encounter CARE/MEDICINE Zoster without CALIN N complications with Provider Comments: Herpes zoster (SCT [id number]) IHE Encounter Template Text not used by [facility] Assessments - Encounter Diagnoses This section includes the primary and secondary diagnoses documented for the Encounter. Date/Time Primary/Secondary Diagnosis Name Provider Source Diagnosis Jan 14, 2022 PRIMARY Zoster without NSUBUGA,KIZZY [facility] 12:05 PM complications [facility] Jan 14, 2022 SECONDARY Other specified NSUBUGA,KIZZY [facility] 12:05 PM cataract [facility] Jan 14, 2022 SECONDARY Sensorineural NSUBUGA,KIZZY [facility] 12:05 PM hearing loss, [facility] bilateral Jan 14, 2022 SECONDARY Tinnitus, bilateral NSUBUGA,KIZZY [facility] 12:05 PM [facility] Jan 14, 2022 SECONDARY Unilateral primary NSUBUGA,KIZZY [facility] 12:05 PM osteoarthritis, [facility] left knee Plan of Treatment: Future Appointments (+ 6 months) and Future Tests (+/- 45 days) The Plan of Treatment section includes future care activities for the patient from all [facility] treatmentfacilities. This section includes future appointments and future orders which are active, pending orscheduled.Future Appointments This section includes appointments that were scheduled to occur 6 months from the date of the Encounter, up to a maximum of 20 appointments. The data comes from all [facility] treatment facilities. Appointment Date/Time Appointment Type Appointment Facili ty Name Jan 28, 2022 07:00 AM AMBULATORY - NONE [facility] Feb 01, 2022 09:00 AM AMBULATORY NONE [facility] Active, Pending, and Scheduled Orders This section includes a listing of several types of active, pending, and scheduled orders, including clinic medications orders, diagnostic test orders, procedure orders and consult orders; where the start date of the order is 45 days before the date of the Encounter or 45 days after the date of the Encounter. The data comes from all [facility] treatment facilities. Test Date/Time Test Type Test Details Facility Name Jan 14, 2022 12:00 AM Laboratory - Chemistry PSA [facility] SP L [facility] [place] [facility] Order ONCE Lab Results: +/- 30 days of the encounter This section includes the Chemistry and Hematology Lab Results on record with [facility] for the patient. Radiology Reports and Pathology Reports are provided separately, in subsequent sections.Lab Results This section contains the Chemistry/Hematology Results that were resulted 30 days before or 30 daysafter the date of the Encounter. Date/Time Source Result Type Result - Unit Interpretation Reference Range Comment Jan 14, 2022 11:48 AM [facility] CBC Speci men Type: BLOOD No comment enter ed. Ordering Provid er: LISSETT GARCIA Report Released Date/Time: Jan 14, 2022 07:54 AM Reporting Lab: [facility] [id number] Performing Lab: [facility] [id number] WBC 6.72 4.0-11.0 RBC 4.76 4.6-6.2 HGB 15.4 13.5-17.9 HCT 46.0 41-54 MCV 96.6 80-100 MCH 32.4 27-33 MCHC 33.5 32.0-37.5 PLT 268 150-400 MPV 10.4 7.4-10.4 RDW 12.8 11.5-14.5 Jan 14, 2022 11:48 [facility] HEMOGLOBIN A1C Specimen Type: BLOOD AM No comment enter ed. Ordering Provid er: LISSETT GARCIA Report Released Date/Time: Jan 14, 2022 07:54 AM Reporting Lab: [facility] [id number] Performing Lab: [facility] [id number] HEMOGLOBIN A1C 5.3 4.0-6.0 Jan 14, 2022 11:48 [facility] VIT D 25-OH,TOTAL Specim en Type: SERUM AM No comment enter ed. Ordering Provid er: LISSETT GARCIA Report Released Date/Time: Jan 14, 2022 07:54 AM Reporting Lab: [facility] [address] [place] [facility] [phone] Performing Lab: [facility] [address] [place] [facility] [id number] VIT D 25-OH,TOTAL 60 H 12-50 Jan 14, 2022 [facility] COMPREHENSIVE METABOLIC Specime n Type: PLASMA 11:48 AM [facility] PANEL+MG No comment enter ed. Ordering Provid er: LISSETT GARCIA Report Released Date/Time: Jan 14, 2022 07:54 AM Reporting Lab: [facility] [address] [place] [facility] [id number] Performing Lab: [facility] [address] [place] [facility] [id number] CREATININE 0.9 0.7-1.2 UREA NITROGEN 11 8-26 GLUCOSE 96 74-100 SODIUM 141 136-145 POTASSIUM 4.4 3.5-5.1 CHLORIDE 103 98-107 CO2 24 22-29 CALCIUM 9.9 8.4-10.2 PROTEIN,TOTAL 7.1 6.0-8.3 ALBUMIN 4.4 3.5-5.2 BILIRUBIN, TOTAL 0.9 0.2-1.2 MAGNESIUM 2.1 1.6-2.6 ANION GAP 14 5-15 ALKALINE PHOSPHATASE 60 40-150 ALT/SGPT 21 <55 AST/SGOT 21 <34 CREAT EGFR(CKD-EPI) >90 >60 Jan 14, 2022 [facility] TSH W/REFLEX TO FREE Specim en Type: PLASMA 11:48 AM T4 No comment enter ed. Ordering Provid er: LISSETT GARCIA Report Released Date/Time: Jan 14, 2022 07:54 AM Reporting Lab: [facility] [address] [place] [facility] [phone] Performing Lab: [facility] [address] [place] [facility] [phone] TSH 0.63 0.35-4.94 Jan 14, 2022 11:48 AM [facility] PSA Speci men Type: SERUM No comment enter ed. Ordering Provid er: LISSETT GARCIA Report Released Date/Time: Jan 14, 2022 07:54 AM Reporting Lab: [facility] [address] [place] [facility] [phone] Performing Lab: [facility] [address] [place] [facility] [address] PSA 2.76 <4.00 Jan 14, 2022 [facility] LIPID PANEL,FASTING Mimie n Type: PLASMA 11:47 AM No comment enter ed. Ordering Provid er: LISSETT GARCIA Report Released Date/Time: Jan 14, 2022 11:25 AM Reporting Lab: [facility] [address] [place] [facility] [phone] Performing Lab: [facility] [address] [facility] [address] CHOLESTEROL 190 <199 TRIGLYCERIDE 119 <149 .HDL 45 >40 LDL CALCULATION 121 H <99 VLDL CALCULATION 24 <29 NON HDL CHOLESTEROL 145 H <129 Vital Signs: All taken on the encounter date This section contains inpatient and outpatient Vital Signs collected on the date of the Encounter. Date/Time Temperature Pulse Blood Respiratory SP02 Pain Height Weight [place] dy Source Pressure Rate Mass Index Jan 14, 98.2 F 72 124/76 20 /min 72 in 204.4 28 [facility] 2021 11:02 /min mm[Hg] lb [facility] Social History: Smoking Status (Most current) and Tobacco Use (All prior to encounter date) This section includes the most current, and the historical, smoking and tobacco-related health factors from the [facility] facility where the Encounter took place.Current Smoking Status This section includes the most current smoking, or tobacco-related health factor, from the ME facility where the Encounter took place. Date/Time Current Smoking Status Comment Facility Jan 14, 2022 11:00 AM VA-TOBACCO USER EVERY DAY [facility] Tobacco Use History This section includes a history of the smoking, or tobacco- related health factors, that were collected on or before the date of the Encounter. The data comes from the ME facility where the Encounter took place. Date/Time Smoking Status/Tobacco Use Comment Facil ity Jan 14, 2022 11:00 AM VA-TOBACCO USE > 15 LESS THAN 30 [facility] YEARS Jan 14, 2022 11:00 AM VA-TOBACCO USE ADVICE [facility] Jan 14, 2022 11:00 AM VA-TOBACCO USE TWILL CUTTER NO [facility] Jan 14, 2022 11:00 AM VA-TOBACCO USE MED NO [facility] Jan 14, 2022 11:00 AM VA-TOBACCO USER EVERY DAY [facility] Feb 01, 2019 11:32 AM VA-TOBACCO DOESNT USE WI 30 MIN [facility] WAKEUP Feb 01, 2019 11:32 AM VA-TOBACCO USE > 15 LESS THAN 30 [facility] YEARS Feb 01, 2019 11:32 AM VA-TOBACCO USE ADVICE [facility] Feb 01, 2019 11:32 AM VA-TOBACCO USE TWILL CUTTER NO [facility] Feb 01, 2019 11:32 AM VA-TOBACCO USE MED NO [facility] Feb 01, 2019 11:32 AM VA-TOBACCO USER EVERY DAY [facility] Nov 24, 2017 02:42 PM CURRENT TOBACCO USER [facility] Apr 27, 2017 08:08 AM CURRENT TOBACCO USER [facility] Radiology Reports: +/- 30 days of the encounter Radiology Reports For cases when an order for radiology services may have been completed prior to the date of the Encounter, the report list includes the Radiology Reports that were completed up to 30 days before date of the Encounter. For cases when an order for radiology services may have been completed after the date of the Encounter, the report list also includes the Radiology Reports that were completed up to 30days after date of the Encounter. The data comes from all [facility] treatment facilities. Date/Time Radiology Report Provider Source Jan 28, 2022 08:[address] LUNG CANCER SCREENING: [facility] VIELKA SPARROW [id number] -[id number] M Exm Date: JAN 28, 2022@08:53 Req Phys: LISSETT GARCIA Pat Loc: [facility] XRAY GENERAL AM (Req'g Loc Img Loc: OUTSOURCE CT Service: Unknown (Case [id number] COMPLETE) NON [facility] CT LUNG CANCER NINI HERNANDEZ (CT Detailed) CPT:87375 Reason for Study: OUTSIDE STUDY Clinical History: OUTSIDE STUDY Report Status: Electronically Filed Date Report ed: FEBRUARY 16, 2022 Report: This is an outside Imaging study and/or report imported for continuity of patient care. This Imaging study and/or report was not reviewed or verified by a [facility] Radiologist. Impression: This is an outside Imaging study and/or report imported for continuity of patient care. This Imaging study and/or report was not reviewed or verified by a [facility] Radiologist. Primary Diagnostic Code: VERIFIED BY: / *ELECTRONICALLY FILED* Encounter Notes: All associated encounter notes This section contains the clinical notes associated to the Encounter. Date/Time Encounter Note(s) Provider Source Jan 14, 2022 11:04 AM PRIMARY CARE NURSING NOTE: SARAH COOPER [facility] TITLE: CBOC NURSING PROGRESS NOTE CBOC STANDARD TITLE: PRIMARY CARE NURSING NOTE DATE OF NOTE: JAN 14, 2022@11:04 ENTRY DATE: JAN 14, 2022@11:05:16 AUTHOR: SARAH COOPER EXP COSIGNER: URGENCY: STATUS: COMPLETED TYPE OF VISIT: Appointment Check In Type of appointment: In-person appointment REASON FOR VISIT: Re-establish ALLERGIES: CODEINE (Nov 01, 2013) VITAL SIGNS: Blood Pressure: 124/76 (01/14/2022 11:02) Pulse: 72 (01/14/2022 11:02) Respiration: 20 (01/14/2022 11:02) Temperature: 98.2 F [36.8 C] (01/14/2022 11:02) Weight: 204.4 lb [92.71 kg] (01/14/2022 11:02) Height: 72 in [182.9 cm] (01/14/2022 11:02) BMI: 27.8 O2 Sat: Pain: 8 (09/02/2019 08:00) PAIN SCREEN: Patient is not having significant pain that the y wish to discuss with their provider today. Suicide Screen: C-SSRS Screening [place] Suicide Severity Rating Scale (C-SSRS) screener 1. Over the past month, have you wished you wer e or wished you could go to sleep and not wake up? No 2. Over the past month, have you had any actual thoughts of killing yourself? No 3. Over the past month, have you been thinking about how you might do this? Response not required due to responses to other questions. 4. Over the past month, have you had these thou ghts and had some intention of acting on them? Response not required due to responses to other questions. 5. Over the past month, have you started to wor k out or worked out the details of how to kill yourself? Response not required due to responses to other questions. 6. If yes, at any time in the past month did yo u intend to carry out this plan? Response not required due to responses to other questions. 7. In your lifetime, have you ever done anythin g, started to do anything, or prepared to do anything to end you r life (for example, collected pills, obtained a gun, gave away valu blas, went to the roof but didn't jump)? No 8. If YES, was this within the past 3 months? Response not required due to responses to other questions. Depression Screening: Perform PHQ-2 A PHQ-2 screen was performed. The score was 0 w hich is a negative screen for depression. Over the past two weeks, how often have you bee n bothered by the following problems? 1. Little interest or pleasure in doing things Not at all 2. Feeling down, depressed, or hopeless Not at all Alcohol Use Screen (AUDIT-C): Alcohol Screen: SCREEN FOR ALCOHOL (AUDIT-C) An alcohol screening test (AUDIT-C) was negativ e (score=2). 1. How often did you have a drink containing al cohol in the past year? Two to four times a month 2. How many drinks containing alcohol did you h ave on a typical day when you were drinking in the past year? One or two drinks 3. How often did you have six or more drinks on one occasion in the past year? Never Nursing Annual Screening: Fall History Screen During the past 12 months, have you had any fal ls? Patient does not report any falls in the past 1 2 months. MEDICATIONS: Patient does not have an active prescription fo r one of the following medications: Antihypertensives, Antidepressants , Antipsychotics, Diuretics, or Opioid Analgesics (Contolled Subs tance medications used for pain). FALL RISK ADVICE: Fall Risk Advice provided. Handout entitled Fa ll Prevention At Home reviewed and given to patient and/or significan t other. Script Talk Screen Are you able to read your prescription bottles with your glasses, magnifiers or other aids? Yes or patient not taking any prescriptions. Skin Screen Patient reports any current pressure ulcers, a history of pressure ulcers, or a wound from a medical stenographer or Patient is bed-confined or a wheelchair-user or Patient requires assistance to transfer/change position No, Skin Screen is Negative Home Abuse/Violence Screen Is your home free of abuse and violence? Yes Outpatient Nutrition Screen Body Mass Index (BMI)= 27.8 [place]: Collection DT Specimen Test Name Result Units Ref Range 04/02/2019 08:43 BLOOD HEMOGLOBIN A1C 5.5 % 4.0 - 6.0 [place] Hgb A1C: No data available [place] Hgb A1C: No data available Point of Care Hgb A1C: POC HGB A1C____ Is patient's BMI less than 18.5? No Does patient have swallowing, coughing, or chew ing problems affecting oral intake? No Has patient experienced unplanned weight loss o r gain greater than 10 pounds over the last 2 months? No Is patient's Hgb A1C (Glycosylated Hemoglobin) greater than 9.5? No Is patient receiving Total Parenteral Nutrition (TPN) or Tube Feedings? No Patient Health Education Screen BARRIERS/SPECIAL NEEDS: No barriers identified PREFERRED STYLE OF LEARNING: No preference stated Client Assistive Service (JOSELO) Screen Does the patient require assistance with outpat ient visit? No Tobacco Use Screening: The patient uses tobacco every day. The patient does not use tobacco within 30 christos devi of waking up. The patient has been smoking or using tobacco f or more than fifteen years and less than thirty years. Patient was advised to quit smoking and/or usin g tobacco. Discussion with patient included: - Quitting smoking or tobacco use is one of the most important things you can do to protect and improve your h ealt and ME has the resources to support you. - Set a quit date when you are ready to quit. - Get support from your family and friends. - Review any past quit attempts- What helped? W hat didn't? - On the day you plan to quit, get rid of all c igarettes and tobacco products from your home, car or work. - Using a combination of behavioral counseling or other support strategies and FDA-approved cessation medicatio ns is the most effective way to ensure success in quitting. Patient was offered Behavioral Counseling and o ther support strategies to assist with quitting. Discussion with patient i ncluded: - Behavioral counseling or other support kumar calvert greatly increases your chances of successfully quitting smoking or tobacco use by helping you develop a quit plan and providing support and other strategies to make behavioral changes to help you quit. - [facility] has a number of behavioral counseling opti ons to help you with quitting, including: * Provide information about the facility smokin g or tobacco use treatment options or clinics * [facility]'s national quitline, 7-732-JNGT-VET, with counseling available Monday-Monday The patient was not interested in receiving add itional information about how to use the treatment options bala june Patient was offered FDA-approved cessation medi cations. Discussion with patient included: - Medications for Nicotine replacement therapy such as the patch, gum or lozenge, and other medications bell ch as varenicline or bupropion, can play an important role in the initial weeks and months after you quit smoking or tobacco us e. - Medications help with cravings and withdrawal symptoms and they greatly increase your chances of successfully q uitting. The patient was not interested in a prescriptio n for tobacco cessation medications. Influenza Immunization: The patient declines to receive the recommended dose of seasonal influenza vaccine. Comment: Herpes Zoster (Shingles) Vaccine: The patient declines to receive the herpes zost er vaccine. Comment: Pneumococcal PPSV23 (Pneumovax): The patient declines to receive the recommended dose of pneumococcal polysaccharide vaccine PPSV23 (Pneumovax). Comment: Td / Tdap Immunization: The patient declines to receive the recommended dose of Tetanus/Diphtheria vaccine (Td). Comment: Homelessness/Food Insecurity Screen: In the past 2 months, have you been living in s table housing that you own, rent, or stay in as part of a household? Y es - Living in stable housing. Are you worried or concerned that in the next 2 months you may NOT have stable housing that you own, rent, or stay in a s part of a household? No - Not worried about housing near future The reports the following: Within the past 12 months, you worried whether your food would run out before you got money to buy more. Never true Within the past 12 months, the food you bought just didn't last and you didn't have money to get more. Never true /es/ SARAH COOPER LPN [facility] Signed: 01/14/2022 11:21 Jan 14, 2022 07:41 AM H & P NOTE: LISSETT GARCIA LOCAL TITLE: CBOC ANNUAL VISIT CBOC STANDARD TITLE: H & P NOTE DATE OF NOTE: JAN 14, 2022@07:41 ENTRY DATE: JAN 14, 2022@07:41:51 AUTHOR: LISSETT GARCIA EXP COSIGNER: URGENCY: STATUS: COMPLETED CBOC ANNUAL VISIT Has ADDENDA Nurses notes reviewed. Chief complaint: Annual visit Current concerns/HPI: The patient is a 71 year old MALE here f or a yearly visit/re-establish primary care. He was treated for shingles 12/18/2021 with valacyclovir tabs and triamcinolone cream. Reports some residual disco mfort but doing OK. Hx of severe osteoarthritis in his knees bilater ally, the left being much worse than the right. States he was luisito jessica with hyaluronic acid injections in [place], he does home exercises on a phone albertina; happy with the progress. Past medical history (list previous surgeries/il lnesses/dates): Osteoarthritis of left knee joint ([facility] 3 History of male erectile disorder ([facility] [id number]) Tinnitus ([facility] [id number]) Tobacco use ([facility] [id number]) Alcohol dependence ([facility] [id number]) Cataract ([facility] [id number]) Bilateral sensory hearing loss ([facility] 4309Polyp Co redd ([facility] [id number]) Allergies: CODEINE (Nov 01, 2013) Active Outpatient Medications (including Supplie s) DICLOFENAC NA 1% TOP GEL APPLY 4 GRAMS TOPICALLY FOUR ACTIVE TIMES A DAY NEEDED FOR KNEE PAIN - USE DOSE CARD/RULER IN BOX TO MEASURE DOSE. MAX 32 GRAMS TOTAL PER DAY. Non-VA ASPIRIN 325MG TAB 325 MG MOUTH EVERY DAY ACTIVE Non-VA MULTIVITAMIN CAP/TAB 1 TABLET MOUTH EVERY DAY ACTIVE Non-VA NON VA MED NOT LISTED MISCELLANEOUS BARLE Y LIFE ACTIVE DAILY Non-VA NON VA MED NOT LISTED MISCELLANEOUS HERBA L FIBER ACTIVE BLEND DAILY Non-VA NON VA MED NOT LISTED MISCELLANEOUS TEST X DAILY ACTIVE Social history: - x 2 - Employment: Retired, Worked for [employer] then moved back home and worked for [employer] for 38 years. - Tobacco use: ~ 10 cigars a day - EtOH use 3 per day. Illicit drugs: [employer] in [place] . FHX: ------ M age 78 of intestinal cancer F age 73 of PR. Surgical hx: Pending Review of Systems: General: No weight loss. No fever. No weakness, fatigue HEENT: + due for eye exam No congestion, runny nose or sore throat. Cardiovascular: No chest pain, no palpitations. Lungs: No shortness of breath, cough or sputum. GI: No heartburn. No abdominal pain, no blood in stools. : No burning on urination. Neuro: No headache or dizziness MSK: No neck or back pain, joint pain Hem: No bleeding or bruising. Psych: stable mood currently Skin: + healing shingles rash Physical Exams: General: No acute distress Vitals: 01/14/22 11:02 T: 98.2 F (36.8 C) P: 72 R: 20 B/P: 124/76 Ht: 72.00 in (182.88 cm) Wt.: 204.40 lb. (92.71 kg) Body Mass Index: 28* Eyes: PERRLA Ears: Tympanic membranes normal bilaterally Neck/Thyroid: No adenopathy Cardiac: RRR + murmur, asymptomatic Chest/Lungs: Bilaterally clear with no respirato ry distress Abdominal: Normal bowel sounds, Non-tender, No h epatosplenomegaly, No masses Extremities: No edema Neurological: Alert and oriented x3 ASSESSMENT/PLAN: 1. 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 Patient agrees to lung cancer screening. Lung c ancer screening information provided and low dose CT will be or dered. Patient currently uses cigarettes; not ready to quit - CT scan via [employer] # Avg Risk Colorectal Cancer Screen: AVERAGE RISK colorectal cancer screening is due based on information available to this clinical reminder Prior/outside colonoscopy results: Found a few polyps- repeat in 5 yrs. Date: November 07, 2019 Colonoscopy reminder set 3 years from JAN 14, 022. 2. Bilateral knee pain: Seen by [facility] orthopedics (02/2021) for severe osteo arthritis in his knees bilaterally, the left much worse than the right. - Treated with hyaluronic acid injections in [facility] [place] (non [place]), states he does home exercises on a phoneapp; happy with the pro octavia. 3. Herpes zoster: Resolving gradually 4. Tinnitus/ Hearing loss: Stable, uses hearing aids - Expiring rx refilled - If any acute problems-> to ER At this visit I have reviewed the medication lis t, updated, and discussed relevant medications with the . [place] verbalizes understanding and agrees with the treatment plan. Denies further questions. RTC in ...1 year / PRN /yashira/ LISSETT GARCIA CNP NP [facility] Signed: 01/14/2022 12:05 01/17/2022 ADDENDUM STATUS: COMPLETED Vit D is high. OK to hold Vit D suppleme nt this summer. Take again in the fall and winter time. Alerting RN to update vet. /yashira/ LISSETT GARCIA CNP NP [facility] Signed: 01/17/2022 16:20 Receipt Acknowledged By: 01/18/2022 10:37 /es/ Eralene Lanier RN Nurse [facility] 01/18/2022 ADDENDUM STATUS: COMPLETED E Commerce Director was unable to contact via telepho ne. E Commerce Director left a HIPAA compliant message relaying n ote from Lissett Garcia and encouraged to contact [facility] with any questions or concerns. /yashira/ Earlene Lanier RN Nurse [facility] Signed: 01/18/2022 10:41 02/17/2022 ADDENDUM STATUS: COMPLETED Lung cancer screening CT FINDINGS: Cardiovascular structures: Heart size is normal. Thoracic aorta and main pulmonary artery are normal in caliber. IMPRESSION: 1. Possible 5 mm nodule posterior left lower lob e. Lung billy are otherwise clear and remaining chest negative. 2. Benign 1 cm left adrenal nodule. 3. Lung rads category 2: Isma ign appearance of behavior (solid nodule less than 6 mm). Recommend continued annual screening with L D CT in 12 months. /yashira/ LISSETT GARCIA CNP NP [facility] Signed: 02/17/2022 07:50
--- OUTSIDE RECORDS SUMMARY | 2022-08-24 09:09 | XMS_ITS | Encounter Summary ---
:1950 Author Organization [facility] Address [address] [place] [address] Support Name Relationship Address Phone GARETH ALTMAN Unavailable [address] [place] [address] GARETH ALTMAN Unavailable [phone] [phone] [place] [address] Insurance Providers: All historical and current Section [...] MEDICARE MEDICARE PART February 06, PART A [id number] HARMEN ING PATIENT (WNR) (M) A 2014 78A 0 ,[place] MEDICARE MEDICARE PART February 06, PART B [id number] HARMEN ING PATIENT (WNR) (M) B 2014 [id number] 0 ,[place] MEDICARE MEDICARE PART February 06, PART A [id number] HARMEN ING PATIENT (WNR) (M) A 2014 [id number] ,[place] MEDICARE MEDICARE PART February 06, PART B [id number] HARMEN ING PATIENT (WNR) (M) B 2014 [id number] 0 ,[place] MEDICARE MEDICARE PART February 06, PART A [id number] HARMEN ING PATIENT (WNR) (M) A 2014 [id number] 0 ,[place] MEDICARE MEDICARE PART February 06, PART B [id number] HARMEN ING PATIENT (WNR) (M) B 2014 [id number] [place] MEDICARE MEDICARE PART February 06, PART A [id number] 800 [address] NEVES (WNR) (M) A 2014 [id number] [phone] ,[place] MEDICARE MEDICARE PART February 06, PART B [id number] 800 KYARA NEVES (WNR) (M) B 2014 78A [phone] ,[place] Selected Encounter This section includes the information on record at [place] for the Encounter. Date/Time Encounter Type Encounter Reason Provider Source Description Jan 19, 2022 09:53 Outpatient PRIMARY SONU HI AM Encounter CARE/MEDICINE IHE Encounter Template Text not used by [place] Plan of Treatment: Future Appointments (+ 6 months) and Future Tests (+/- 45 days) The Plan of Treatment section includes future care activities for the patient from all [place] [facility]. This section includes future appointments and future orders which are active, pending orscheduled.Future Appointments This section includes appointments that were scheduled to occur 6 months from the date of the Encounter, up to a maximum of 20 appointments. The data comes from all [facility]. Appointment Date/Time Appointment Type Appointment Facili ty Name Jan 28, 2022 07:00 AM AMBULATORY - NONE [facility] Feb 01, 2022 09:00 AM AMBULATORY [facility] Active, Pending, and Scheduled Orders This section includes a listing of several types of active, pending, and scheduled orders, including clinic medications orders, diagnostic test orders, procedure orders and consult orders; where the start date of the order is 45 days before the date of the Encounter or 45 days after the date of the Encounter. The data comes from all [place] treatment [facility]. Test Date/Time Test Type Test Details Facility Name Jan 14, 2022 12:00 AM Laboratory - Chemistry PSA [facility] SP L [facility] Order ONCE Lab Results: +/- 30 days of the encounter This section includes the Chemistry and Hematology Lab Results on record with [place] for the patient. Radiology Reports and Pathology [...] Jan 14, 2022 07:54 AM Reporting Lab: [facility] [id number] Performing Lab: [facility] [address] WBC 6.72 4.0-11.0 RBC 4.76 4.6-6.2 HGB 15.4 13.5-17.9 HCT 46.0 41-54 MCV 96.6 80-100 MCH 32.4 27-33 MCHC 33.5 32.0-37.5 PLT 268 150-400 MPV 10.4 7.4-10.4 RDW 12.8 11.5-14.5 Jan 14, 2022 11:48 [facility] HEMOGLOBIN A1C Specimen Type: BLOOD AM No comment enter ed. Ordering Provid er: LISSETT GARCIA Report Released Date/Time: Jan 14, 2022 07:54 AM Reporting Lab: [facility] [address] Performing Lab: [facility] [address] HEMOGLOBIN A1C 5.3 4.0-6.0 Jan 14, 2022 11:48 [facility] VIT D 25-OH,TOTAL Specim en Type: SERUM AM No comment enter ed. Ordering Provid er: LISSETT GARCIA Report Released Date/Time: Jan 14, 2022 07:54 AM Reporting Lab: [facility] [address] Performing Lab: [facility] [address] VIT D 25-OH,TOTAL 60 H 12-50 Jan 14, 2022 [facility] COMPREHENSIVE METABOLIC Specime n Type: PLASMA 11:48 AM CBOC PANEL+MG No comment enter ed. Ordering Provid er: LISSETT GARCIA Report Released Date/Time: Jan 14, 2022 07:54 AM Reporting Lab: [facility] [address] Performing Lab: [facility] [address] CREATININE 0.9 0.7-1.2 UREA NITROGEN 11 8-26 [...] Jan 14, 2022 07:54 AM Reporting Lab: [facility] [address] Performing Lab: [facility] [address] TSH 0.63 0.35-4.94 Jan 14, 2022 11:48 AM [facility] PSA Speci men Type: SERUM No comment enter ed. Ordering Provid er: LISSETT GARCIA Report Released Date/Time: Jan 14, 2022 07:54 AM Reporting Lab: [facility] [address] Performing Lab: [facility] [address] PSA 2.76 <4.00 Jan 14, 2022 [facility] LIPID PANEL,FASTING Specime n Type: PLASMA 11:47 AM No comment enter ed. Ordering Provid er: LISSETT GARCIA Report Released Date/Time: Jan 14, 2022 11:25 AM Reporting Lab: [facility] [address] [facility] [address] Performing Lab: [facility] [address] CHOLESTEROL 190 <199 TRIGLYCERIDE 119 <149 .HDL 45 >40 LDL CALCULATION 121 H <99 VLDL CALCULATION 24 <29 NON HDL CHOLESTEROL 145 H <129 Radiology Reports: +/- 30 days of the [...] the Encounter. The data comes from all [place] treatment facilities. Date/Time Radiology Report Provider Source Jan 28, 2022 08:[address] [place] [address] LUNG CANCER SCREENING: [facility] VIELKA RUANO [id number] -1950 M Exm Date: JAN 28, 2022@08:53 Req Phys: LISSETT GARCIA N Pat Loc: [facility] XRAY GENERAL AM (Req'g Loc Img Loc: OUTSOURCE CT Service: Unknown (Case [id number] COMPLETE) NON [place] CT LUNG CANCER NINI HERNANDEZ (CT Detailed) CPT:24257 Reason for Study: OUTSIDE STUDY Clinical History: OUTSIDE STUDY Report Status: Electronically Filed Date Report ed: FEBRUARY 16, 2022 Report: This is an outside Imaging study and/or report imported for continuity of patient care. This Imaging study and/or report was not reviewed or verified by a [place] Radiologist. Impression: This is an outside Imaging study and/or report imported for continuity of patient care. This Imaging study and/or report was not reviewed or verified by a [place] Radiologist. Primary Diagnostic Code: VERIFIED BY: / *ELECTRONICALLY FILED* Encounter Notes: All associated encounter notes This section contains the clinical notes associated to the Encounter. Date/Time Encounter Note(s) Provider Source Jan 19, 2022 09:53 AM PRIMARY CARE SECURE MESSAGING: [facility] LOCAL TITLE: PRIMARY CARE SECURE MESSAGING STANDARD TITLE: PRIMARY CARE SECURE MESSAGING DATE OF NOTE: JAN 19, 2022@09:53 ENTRY DATE: JAN 19, 2022@09:53:59 AUTHOR: SONU HI COSIGNER: URGENCY: STATUS: COMPLETED ------Original Message Sent: 01/19/2022 08:31 AM ET From: VIELKA RUANO [facility]: [facility] Ceasar MARSHALL Subject: Test:Lab results voice mail message Lissett Anibal, I received a voicemail messag e from a woman at your [facility] in [place] yesterday 01/18/22. I could not unders tand her message, the cell phone reception interviewer was poor faint and inaudible. Ca n you please tell me what she said? something about vitamin C or D. Thank-You Vielka Ruano ------Original Message Sent: 01/19/2022 10:53 AM ET From: SONU HI To: VIELKA RUANO Subject: Test:Lab results voice mail message Per Lissett: Vit D is high. OK to hold Vit D s upplement this summer. Take again in the fall and winter time. [facility] [place] [facility] /es/ Sonu Hi RN Nurse [facility] Signed: 01/19/2022 09:53
--- OUTSIDE RECORDS SUMMARY | 2022-08-24 09:09 | XMS_ITS | Encounter Summary ---
:1950 Author Organization [facility] Address [address] [place] [address] Support Name Relationship Address Phone GARETH ALTMAN Unavailable [phone] [phone] [place] [address] GARETH ALTMAN Unavailable [address] [place] [address] Insurance Providers: All historical and current Section [...] MEDICARE MEDICARE PART February 06, PART A [id number] HARMEN ING PATIENT (WNR) (M) A 2014 [id number] ,[place] MEDICARE MEDICARE PART February 06, PART B [id number] HARMEN ING PATIENT (WNR) (M) B 2014 [id number] ,[place] MEDICARE MEDICARE PART February 06, PART A [id number] HARMEN ING PATIENT (WNR) (M) A 2014 [id number] ,[place] MEDICARE MEDICARE PART February 06, PART B [id number] HARMEN ING PATIENT (WNR) (M) B 2014 [id number] 0 ,[place] MEDICARE MEDICARE PART February 06, PART A [id number] HARMEN ING PATIENT (WNR) (M) A 2014 [id number] 0 ,[place] MEDICARE MEDICARE PART February 06, PART B [id number] HARMEN ING PATIENT (WNR) (M) B 2014 [id number] [place] MEDICARE MEDICARE PART February 06, PART A [id number] 800 [address] Daniel ATLEE (WNR) (M) A [id number] [phone] ,[place] MEDICARE MEDICARE PART February 06, PART B [id number] 800 KY[address] Daniel ATLEE (WNR) (M) B [id number] [phone] ,[place] Selected Encounter This section includes the information on record at [place] for the Encounter. Date/Time Encounter Type Encounter Description Reason Provider Source Jan 17, 2022 04:27 Outpatient Encounter ADMIN PAT NATALIE MENCHACA DO PM (MASNONCT) IHE Encounter Template Text not used by [place] Plan of Treatment: Future Appointments (+ 6 months) and Future Tests (+/- 45 days) The Plan of Treatment section includes future care activities for the patient from all [place] [facility]. This section includes future appointments and future orders which are active, pending orscheduled.Future Appointments This section includes appointments that were scheduled to occur 6 months from the date of the Encounter, up to a maximum of 20 appointments. The data comes from all [facility]. Appointment Date/Time Appointment Type Appointment Facili ty Name Jan 28, 2022 07:00 AM AMBULATORY - NONE [facility] Feb 01, 2022 09:[address] [facility] Active, Pending, and Scheduled Orders This section includes a listing of several types of active, pending, and scheduled orders, including clinic medications orders, diagnostic test orders, procedure orders and consult orders; where the start date of the order is 45 days before the date of the Encounter or 45 days after the date of the Encounter. The data comes from all [place] treatment [facility]. Test Date/Time Test Type Test Details Facility Name Jan 14, 2022 12:00 AM Laboratory - Chemistry PSA SERUM [facility] SP L [facility] Order ONCE Lab Results: +/- 30 days of the encounter This section includes the Chemistry and Hematology Lab Results on record with [place] for the patient. Radiology Reports and Pathology [...] No comment enter ed. Ordering Provid er: MAURICE GARCIA Report Released Date/Time: Jan 14, 2022 07:54 AM Reporting Lab: [facility] [address] [facility] [address] Performing Lab: [facility] [address] WBC 6.72 4.0-11.0 RBC 4.76 4.6-6.2 HGB 15.4 13.5-17.9 HCT 46.0 41-54 MCV 96.6 80-100 MCH 32.4 27-33 MCHC 33.5 32.0-37.5 PLT 268 150-400 MPV 10.4 7.4-10.4 RDW 12.8 11.5-14.5 Jan 14, 2022 11:48 [facility] HEMOGLOBIN A1C Specimen Type: BLOOD AM No comment enter ed. Ordering Provid er: MAURICE GARCIA Report Released Date/Time: Jan 14, 2022 07:54 AM Reporting Lab: [facility] [address] Performing Lab: [facility] [address] HEMOGLOBIN A1C 5.3 4.0-6.0 Jan 14, 2022 11:48 [facility] VIT D 25-OH,TOTAL Specim en Type: SERUM AM No comment enter ed. Ordering Provid er: MAURICE GARCIA Report Released Date/Time: Jan 14, 2022 07:54 AM Reporting Lab: [facility] [address] Performing Lab: [facility] [address] VIT D 25-OH,TOTAL 60 H 12-50 Jan 14, 2022 [facility] TSH W/REFLEX TO FREE Specim en Type: PLASMA 11:48 AM T4 No comment enter ed. Ordering Provid er: MAURICE GARCIA Report Released Date/Time: Jan 14, 2022 07:54 AM Reporting Lab: [facility] [address] [facility] [address] Performing Lab: [facility] [address] TSH 0.63 0.35-4.94 Jan 14, 2022 [facility] COMPREHENSIVE METABOLIC Specime n Type: PLASMA 11:48 AM CBOC PANEL+MG No comment enter ed. Ordering Provid er: MAURICE GARCIA Report Released Date/Time: Jan 14, 2022 07:54 AM Reporting Lab: [facility] [address] Performing Lab: [facility] [address] CREATININE 0.9 0.7-1.2 UREA NITROGEN 11 8-26 GLUCOSE 96 74-100 SODIUM 141 136-145 POTASSIUM 4.4 3.5-5.1 CHLORIDE 103 98-107 CO2 24 22-29 CALCIUM 9.9 8.4-10.2 PROTEIN,TOTAL 7.1 6.0-8.3 ALBUMIN 4.4 3.5-5.2 BILIRUBIN, TOTAL 0.9 0.2-1.2 MAGNESIUM 2.1 1.6-2.6 ANION GAP 14 5-15 ALKALINE PHOSPHATASE 60 40-150 ALT/SGPT 21 <55 AST/SGOT 21 <34 CREAT EGFR(CKD-EPI) >90 >60 Jan 14, 2022 11:48 AM [facility] PSA Speci men Type: SERUM No comment enter ed. Ordering Provid er: MAURICE GARCIA Report Released Date/Time: Jan 14, 2022 07:54 AM Reporting Lab: [facility] [address] Performing Lab: [facility] [address] PSA 2.76 <4.00 Jan 14, 2022 [facility] LIPID PANEL,FASTING Specime n Type: PLASMA 11:47 AM No comment enter ed. Ordering Provid er: MAURICE GARCIA Report Released Date/Time: Jan 14, 2022 11:25 AM Reporting Lab: [facility] [address] Performing Lab: [facility] [address] CHOLESTEROL 190 <199 TRIGLYCERIDE 119 <149 .HDL [...] the Encounter. The data comes from all [place] treatment facilities. Date/Time Radiology Report Provider Source Jan 28, 2022 08:[address] [place] [address] LUNG CANCER SCREENING: [facility] VIELKA SPARROW [id number] -1950 M Exm Date: JAN 28, 2022@08:53 Req Phys: MAURICE GARCIA N Pat Loc: [facility] XRAY GENERAL AM (Req'g Loc Img Loc: OUTSOURCE CT Service: Unknown (Case [id number] COMPLETE) NON [place] CT LUNG CANCER NINI HERNANDEZ (CT Detailed) CPT:31213 Reason for Study: OUTSIDE STUDY Clinical History: OUTSIDE STUDY Report Status: Electronically Filed Date Report ed: FEBRUARY 16, 2022 Report: This is an outside Imaging study and/or report imported for continuity of patient care. This Imaging study and/or report was not reviewed or verified by a [place] Radiologist. Impression: This is an outside Imaging study and/or report imported for continuity of patient care. This Imaging study and/or report was not reviewed or verified by a [place] Radiologist. Primary Diagnostic Code: VERIFIED BY: / *ELECTRONICALLY FILED* Encounter Notes: All associated encounter notes This section contains the clinical notes associated to the Encounter. Date/Time Encounter Note(s) Provider Source Jan 17, 2022 04:27 PM PULMONARY NOTE: NATALIE STAUFFER [facility] LOCAL TITLE: PULMONARY LUNG CANCER SCREENING STANDARD TITLE: PULMONARY NOTE DATE OF NOTE: JAN 17, 2022@16:27 ENTRY DATE: JAN 17, 2022@16:27:37 AUTHOR: NATALIE STAUFFER EXP COSIGNER: URGENCY: STATUS: COMPLETED Lung Cancer Screening Patient Management Patient declines initial lung cancer screening for this year. Patient opted for community care and PCP already placed a community care consult. /yashira/ NATALIE STAUFFER, MSN, RN, PHN [employer] PRO[employer] ENGINEER Signed: 01/17/2022 16:27
--- OUTSIDE RECORDS SUMMARY | 2022-08-24 09:09 | XMS_ITS | Encounter Summary ---
:1950 Author Organization [facility] Address [address] [place] [address] Support Name Relationship Address Phone GARETH ALTMAN Unavailable [address] [place] [address] GARETH ALTMAN Unavailable [address] [place] [address] Insurance Providers: All historical and current Section [...] MEDICARE MEDICARE PART February 06, PART A [id number] HARMEN ING PATIENT (WNR) (M) A 2014 [id number] ,[place] MEDICARE MEDICARE PART February 06, PART B [id number] HARMEN ING PATIENT (WNR) (M) B 2014 [id number] ,[place] MEDICARE MEDICARE PART February 06, PART A [id number] HARMEN ING PATIENT (WNR) (M) A 2014 [id number] ,[place] MEDICARE MEDICARE PART February 06, PART B [id number] HARMEN ING PATIENT (WNR) (M) B 2014 [id number] 0 ,[place] MEDICARE MEDICARE PART February 06, PART A [id number] HARMEN ING PATIENT (WNR) (M) A 2014 [id number] 0 ,[place] MEDICARE MEDICARE PART February 06, PART B [id number] HARMEN ING PATIENT (WNR) (M) B 2014 [id number] [place] MEDICARE MEDICARE PART February 06, PART A [id number] 800 KYARA NEVES (WNR) (M) A 2014 78A [phone] ,[place] MEDICARE MEDICARE PART February 06, PART B [id number] 800 KYARA NEVES (WNR) (M) B 2014 78A [phone] ,[place] Selected Encounter This section includes the information on record at [place] for the Encounter. Date/Time Encounter Type Encounter Description Reason Provider Source Jan 14, 2022 12:00 Outpatient Encounter EVENT (HISTORICAL) AM IHE Encounter Template Text not used by [place] Plan of Treatment: Future Appointments (+ 6 months) and Future Tests (+/- 45 days) The Plan of Treatment section includes future care activities for the patient from all [place] [facility] This section includes future appointments and future orders which are active, pending orscheduled.Future Appointments This section includes appointments that were scheduled to occur 6 months from the date of the Encounter, up to a maximum of 20 appointments. The data comes from all [facility]. Appointment Date/Time Appointment Type Appointment Facili ty Name Jan 28, 2022 07:00 AM AMBULATORY - NONE [facility] Feb 01, 2022 09:00 AM AMBULATORY [facility] Active, Pending, and Scheduled Orders This section includes a listing of several types of active, pending, and scheduled orders, including clinic medications orders, diagnostic test orders, procedure orders and consult orders; where the start date of the order is 45 days before the date of the Encounter or 45 days after the date of the Encounter. The data comes from all [place] treatment [facility]. Test Date/Time Test Type Test Details Facility Name Jan 14, 2022 12:00 AM Laboratory - Chemistry PSA SERUM [facility]OC SP L [facility] Order ONCE Lab Results: +/- 30 days of the encounter This section includes the Chemistry and Hematology Lab Results on record with [place] for the patient. Radiology Reports and Pathology [...] Jan 14, 2022 07:54 AM Reporting Lab: [facility] [address] Performing Lab: [facility] [address] WBC 6.72 4.0-11.0 RBC 4.76 4.6-6.2 HGB 15.4 13.5-17.9 HCT 46.0 41-54 MCV 96.6 80-100 MCH 32.4 27-33 MCHC 33.5 32.0-37.5 PLT 268 150-400 MPV 10.4 7.4-10.4 RDW 12.8 11.5-14.5 Jan 14, 2022 11:48 [facility] HEMOGLOBIN A1C Specimen Type: BLOOD AM No comment enter ed. Ordering Provid er: MAURICE GARCIA Report Released Date/Time: Jan 14, 2022 07:54 AM Reporting Lab: [facility] [address] Performing Lab: [facility] [address] HEMOGLOBIN A1C 5.3 4.0-6.0 Jan 14, 2022 11:48 [facility] VIT D 25-OH,TOTAL Specim en Type: SERUM AM No comment enter ed. Ordering Provid er: MAURICE GARCIA Report Released Date/Time: Jan 14, 2022 07:54 AM Reporting Lab: [facility] [address] Performing Lab: [facility] [address] VIT D 25-OH,TOTAL 60 H 12-50 Jan 14, 2022 [facility] TSH W/REFLEX TO FREE Specim en Type: PLASMA 11:48 AM T4 No comment enter ed. Ordering Provid er: MAURICE GARCIA Report Released Date/Time: Jan 14, 2022 07:54 AM Reporting Lab: [facility] [address] Performing Lab: [facility] [address] TSH 0.63 0.35-4.94 Jan 14, 2022 [facility] COMPREHENSIVE METABOLIC Specime n Type: PLASMA 11:48 AM CBOC PANEL+MG No comment enter ed. Ordering Provid er: MAURICE GARCIA Report Released Date/Time: Jan 14, 2022 07:54 AM Reporting Lab: [facility] [address] Performing Lab: [facility] [address] CREATININE 0.9 0.7-1.2 UREA NITROGEN 11 8-26 [...] Jan 14, 2022 07:54 AM Reporting Lab: [facility] [address] Performing Lab: [facility] [address] PSA 2.76 <4.00 Jan 14, 2022 [facility] LIPID PANEL,FASTING Specime n Type: PLASMA 11:47 AM No comment enter ed. Ordering Provid er: MAURICE GARCIA Report Released Date/Time: Jan 14, 2022 11:25 AM Reporting Lab: [facility] [address] Performing Lab: [facility] [address] CHOLESTEROL 190 <199 TRIGLYCERIDE 119 <149 .HDL [...] the Encounter. The data comes from all [place] treatment facilities. Date/Time Radiology Report Provider Source Jan 28, 2022 08:[address] [place] [address] LUNG CANCER SCREENING: [facility] VIELKA SPARROW [id number] -1950 M Exm Date: JAN 28, 2022@08:53 Req Phys: MAURICE GARCIA Pat Loc: [facility] XRAY GENERAL AM (Req'g Loc Img Loc: OUTSOURCE CT Service: Unknown (Case [id number] COMPLETE) NON [place] CT LUNG CANCER NINI HERNANDEZ (CT Detailed) CPT:62523 Reason for Study: OUTSIDE STUDY Clinical History: OUTSIDE STUDY Report Status: Electronically Filed Date Report ed: FEBRUARY 16, 2022 Report: This is an outside Imaging study and/or report imported for continuity of patient care. This Imaging study and/or report was not reviewed or verified by a [place] Radiologist. Impression: This is an outside Imaging study and/or report imported for continuity of patient care. This Imaging study and/or report was not reviewed or verified by a [place] Radiologist. Primary Diagnostic Code: VERIFIED BY: / *ELECTRONICALLY FILED*
--- OUTSIDE RECORDS SUMMARY | 2022-08-24 09:10 | XMS_ITS | Encounter Summary ---
:1950 Author Organization [facility] Address [address] [place] [address] Support Name Relationship Address Phone GARETH ALTMAN Unavailable [address] [place] [address] GARETH ALTMAN Unavailable [address] [place] [address] Insurance Providers: All historical and current Section [...] MEDICARE MEDICARE PART February 06, PART A [id number] HARMEN ING PATIENT (WNR) (M) A 2014 [id number] 0 ,VIELKA MEDICARE MEDICARE PART February 06, PART B [id number] HARMEN ING PATIENT (WNR) (M) B 2014 [id number] 0 ,[place] MEDICARE MEDICARE PART February 06, PART A [id number] HARMEN ING PATIENT (WNR) (M) A 2014 [id number] ,[place] MEDICARE MEDICARE PART February 06, PART B [id number] HARMEN ING PATIENT (WNR) (M) B 2014 [id number] 0 ,[place] MEDICARE MEDICARE PART February 06, PART A [id number] HARMEN ING PATIENT (WNR) (M) A 2014 [id number] 0 ,[place] MEDICARE MEDICARE PART February 06, PART B [id number] HARMEN ING PATIENT (WNR) (M) B 2014 [id number] [place] MEDICARE MEDICARE PART February 06, PART A [id number] 800 KY[address] Daniel ATLEE (WNR) (M) A 2014 78A [phone] ,[place] MEDICARE MEDICARE PART February 06, PART B [id number] 800 KYARA Daniel ATIENT (WNR) (M) B 2014 78A [phone] ,VIELKA Selected Encounter This section includes the information on record at [place] for the Encounter. Date/Time Encounter Type Encounter Description Reason Provider Source Jan 28, 2022 12:00 Outpatient Encounter COMMUNITY CARE AM CONSULT IHE Encounter Template Text not used by [place] Plan of Treatment: Future Appointments (+ 6 months) and Future Tests (+/- 45 days) The Plan of Treatment section includes future care activities for the patient [facility] [place] [facility] This section includes future appointments and future orders which are active, pending orscheduled.Future Appointments This section includes appointments that were scheduled to occur 6 months from the date of the Encounter, up to a maximum of 20 appointments. The data comes from all [place] treatment [facility]. Appointment Date/Time Appointment Type Appointment Facili ty Name Feb 01, 2022 09:00 AM AMBULATORY - [facility] Jul 25, 2022 01:00 PM AMBULATORY - MEDICINE [facility] Jul 25, 2022 02:00 PM AMBULATORY - MEDICINE [facility] Active, Pending, and Scheduled Orders This section includes a listing of several types of active, pending, and scheduled orders, including clinic medications orders, diagnostic test orders, procedure orders and consult orders; where the start date of the order is 45 days before the date of the Encounter or 45 days after the date of the Encounter. The data comes from all [place] treatment [facility]. Test Date/Time Test Type Test Details Facility Name Jan 14, 2022 12:00 AM Laboratory - Chemistry PSA [facility] SP L [facility] Order ONCE Lab Results: +/- 30 days of the encounter This section includes the Chemistry and Hematology Lab Results on record with [place] for the patient. Radiology Reports and Pathology [...] Jan 14, 2022 07:54 AM Reporting Lab: [facility] [id number] Performing Lab: [facility] [id number] WBC 6.72 4.0-11.0 RBC 4.76 4.6-6.2 HGB 15.4 13.5-17.9 HCT 46.0 41-54 MCV 96.6 80-100 MCH 32.4 27-33 MCHC 33.5 32.0-37.5 PLT 268 150-400 MPV 10.4 7.4-10.4 RDW 12.8 11.5-14.5 Jan 14, 2022 11:48 [facility] HEMOGLOBIN A1C Specimen Type: BLOOD AM No comment enter ed. Ordering Provid er: MAURICE GARCIA Report Released Date/Time: Jan 14, 2022 07:54 AM Reporting Lab: [facility] [id number] Performing Lab: [facility] [id number] HEMOGLOBIN A1C 5.3 4.0-6.0 Jan 14, 2022 [facility] COMPREHENSIVE METABOLIC Specime n Type: PLASMA 11:48 AM [facility] PANEL+MG No comment enter ed. Ordering Provid er: MAURICE GARCIA Report Released Date/Time: Jan 14, 2022 07:54 AM Reporting Lab: [facility] [id number] Performing Lab: [facility] [address] CREATININE 0.9 0.7-1.2 UREA NITROGEN 11 8-26 GLUCOSE 96 74-100 SODIUM 141 136-145 POTASSIUM 4.4 3.5-5.1 CHLORIDE 103 98-107 CO2 24 22-29 CALCIUM 9.9 8.4-10.2 PROTEIN,TOTAL 7.1 6.0-8.3 ALBUMIN 4.4 3.5-5.2 BILIRUBIN, TOTAL 0.9 0.2-1.2 MAGNESIUM 2.1 1.6-2.6 ANION GAP 14 5-15 ALKALINE PHOSPHATASE 60 40-150 ALT/SGPT 21 <55 AST/SGOT 21 <34 CREAT EGFR(CKD-EPI) >90 >60 Jan 14, 2022 11:48 [facility] VIT D 25-OH,TOTAL Specim en Type: SERUM AM No comment enter ed. Ordering Provid er: MAURICE GARCIA Report Released Date/Time: Jan 14, 2022 07:54 AM Reporting Lab: [facility] [address] [facility] [address] Performing Lab: [facility] [address] VIT D 25-OH,TOTAL 60 H 12-50 Jan 14, 2022 [facility] TSH W/REFLEX TO FREE Specim en Type: PLASMA 11:48 AM T4 No comment enter ed. Ordering Provid er: MAURICE GARCIA Report Released Date/Time: Jan 14, 2022 07:54 AM Reporting Lab: [facility] [address] Performing Lab: [facility] [address] TSH 0.63 0.35-4.94 Jan 14, 2022 11:48 AM [facility] PSA Speci men Type: SERUM No comment enter ed. Ordering Provid er: MAURICE GARCIA Report Released Date/Time: Jan 14, 2022 07:54 AM Reporting Lab: [facility] [address] [facility] [id number] Performing Lab: [facility] [address] PSA 2.76 <4.00 Jan 14, 2022 [facility] LIPID PANEL,FASTING Specime n Type: PLASMA 11:47 AM No comment enter ed. Ordering Provid er: MAURICE GARCIA Report Released Date/Time: Jan 14, 2022 11:25 AM Reporting Lab: [facility] [address] Performing Lab: [facility] [address] CHOLESTEROL 190 <199 TRIGLYCERIDE 119 <149 .HDL [...] the Encounter. The data comes from all [place] treatment facilities. Date/Time Radiology Report Provider Source Jan 28, 2022 08:[address] LUNG CANCER SCREENING: [facility] VIELKA SPARROW [id number] -1950 M Exm Date: JAN 28, 2022@08:53 Req Phys: MAURICE GARCIA Pat Loc: [facility] XRAY GENERAL AM (Req'g Loc Img Loc: OUTSOURCE CT Service: Unknown (Case [id number] COMPLETE) NON AL CT LUNG CANCER NINI HERNANDEZ (CT Detailed) CPT:77704 Reason for Study: OUTSIDE STUDY Clinical History: OUTSIDE STUDY Report Status: Electronically Filed Date Report ed: FEBRUARY 16, 2022 Report: This is an outside Imaging study and/or report imported for continuity of patient care. This Imaging study and/or report was not reviewed or verified by a [place] Radiologist. Impression: This is an outside Imaging study and/or report imported for continuity of patient care. This Imaging study and/or report was not reviewed or verified by a [place] Radiologist. Primary Diagnostic Code: VERIFIED BY: / *ELECTRONICALLY FILED* Encounter Notes: All associated encounter notes This section contains the clinical notes associated to the Encounter. Date/Time Encounter Note(s) Provider Source Jan 28, 2022 12:00 AM NONVA CONSULT: SEBASTIÁN PALMER [facility] LOCAL TITLE: COMMUNITY CARE CONSULT RESULT CT S CAN STANDARD TITLE: NONVA CONSULT DATE OF NOTE: JAN 28, 2022 ENTRY DATE: FEB 01 022@13:38:20 AUTHOR: SEBASTIÁN PALMER EXP COSIGNER: URGENCY: STATUS: COMPLETED COMMUNITY CARE CONSULT RESULT CT SCAN Has A DDENDA [facility] - Scanned Document COMMUNITY CARE-CT SCAN [facility] [employer] APPOINTMENT INFORMATION Documentation received from non-AL provider and scanned into [facility]. /yashira/ SEBASTIÁN PROCESS Signed: 02/01/2022 13:38 02/16/2022 ADDENDUM STATUS: COMPLETED CT Chest Low Dose w/o Contrast EXAM DATE: 01/28/2022 INDICATION: Lung cancer screening COMPARISON: None FINDINGS: Cardiovascular structures: Heart size is normal. Thoracic aorta and main pulmonary artery are normal in caliber. Mediastinum and michelle: No sign of mass or adenopa thy. Lungs: Possible 5 mm pulmona ry nodule posterior left lower lobe, series 3, image 82 versus a vessel and sligh t motion due to breathing artifact. The lung billy are otherwise clear. No other suspicious pulmona ry nodules, mass or consolidation. No endobronchial or tracheal lesi ons. Pleura and pericardium: No effusions. Chest wall and axilla: No mass or adenopathy. Bones: Degenerative spine. No lytic or osteoblas tic lesions. Upper abdomen: 1 cm left adrenal nodule with Erin nsfield numbers less than 10 consistent with a benign adenoma. Upper abdomen otherwise unremarkable. IMPRESSION: 1. Possible 5 mm nodule posterior left lower lob e. Lung billy are otherwise clear and remaining chest negative. 2. Benign 1 cm left adrenal nodule. 3. Lung rads category 2: Isma ign appearance of behavior (solid nodule less than 6 mm). Recommend continued annual screening with L D CT in 12 months. Dictated by Kaleb Cook MD /yashira/ Earlene Lanier, [place] Nurse [facility] Signed: 02/16/2022 11:32 02/16/2022 ADDENDUM STATUS: COMPLETED FOLLOW UP: - Alerting PACT Red provider to review CT scan results and advise on any follow up needed. /yashira/ Earlene Lanier, RN Nurse [facility] Signed: 02/16/2022 11:33 Receipt Acknowledged By: * AWAITING SIGNATURE * ANAYELI JIMÉNEZ II
--- OUTSIDE RECORDS SUMMARY | 2022-08-24 09:10 | XMS_ITS | Encounter Summary ---
:1950 Author Organization [facility] Address [address] [place] [address] Support Name Relationship Address Phone GARETH ALTMAN Unavailable [address] [place] [address] GARETH ALTMAN Unavailable [address] [place] [address] Insurance Providers: All historical and current Section [...] MEDICARE MEDICARE PART February 06, PART A [id number] HARMEN ING PATIENT (WNR) (M) A 2014 [id number] ,[place] MEDICARE MEDICARE PART February 06, PART B [id number] HARMEN ING PATIENT (WNR) (M) B 2014 [id number] 0 ,[place] MEDICARE MEDICARE PART February 06, PART A [id number] HARMEN ING PATIENT (WNR) (M) A 2014 [id number] 0 ,[place] MEDICARE MEDICARE PART February 06, PART B [id number] HARMEN ING PATIENT (WNR) (M) B 2014 [id number] 0 ,[place] MEDICARE MEDICARE PART February 06, PART A [id number] HARMEN ING PATIENT (WNR) (M) A 2014 [id number] 0 ,[place] MEDICARE MEDICARE PART February 06, PART B [id number] HARMEN ING PATIENT (WNR) (M) B 2014 [id number] [place] MEDICARE MEDICARE PART February 06, PART A [id number] 800 KYARA Daniel ATIENT (WNR) (M) A 2014 [id number] [phone] ,[place] MEDICARE MEDICARE PART February 06, PART B [id number] 800 KYARA P ATIENT (WNR) (M) B [id number] [phone] ,VIELKA Selected Encounter This section includes the information on record at [place] for the Encounter. Date/Time Encounter Type Encounter Reason Provider Source Description February 16, 2022 11:25 Outpatient PRIMARY SONU LANIER AM Encounter CARE/MEDICINE IHE Encounter Template Text not used by [place] Plan of Treatment: Future Appointments (+ 6 months) and Future Tests (+/- 45 days) The Plan of Treatment section includes future care activities for the patient from all [place] treatmentfacilities. This section includes future appointments and future orders which are active, pending orscheduled.Future Appointments This section includes appointments that were scheduled to occur 6 months from the date of the Encounter, up to a maximum of 20 appointments. The data comes from all [place] treatment facilities. Appointment Date/Time Appointment Type Appointment Facili ty Name Jul 25, 2022 01:00 PM AMBULATORY - [...] the Encounter. The data comes from all [place] treatment facilities. Test Date/Time Test Type Test Details Facility Name Jan 14, 2022 12:00 AM Laboratory - Chemistry PSA SERUM [facility] SP L [facility] Order ONCE Radiology Reports: +/- 30 days of the [...] the Encounter. The data comes from all [place] treatment [facility]. Date/Time Radiology Report Provider Source Jan 28, 2022 08:[address] LUNG CANCER SCREENING: [facility] VIELKA RUANO [id number] -1950 M Exm Date: JAN 28, 2022@08:53 Req Phys: LISSETT WEIR Loc: [facility] XRAY GENERAL AM (Req'g Loc Img Loc: OUTSOURCE CT Service: Unknown (Case [id number] COMPLETE) NON [place] CT LUNG CANCER NINI HERNANDEZ (CT Detailed) CPT:24859 Reason for Study: OUTSIDE STUDY Clinical History: OUTSIDE STUDY Report Status: Electronically Filed Date Report ed: FEBRUARY 16, 2022 Report: This is an outside Imaging study and/or report imported for continuity of patient care. This Imaging study and/or report was not reviewed or verified by a [place] Radiologist. Impression: This is an outside Imaging study and/or report imported for continuity of patient care. This Imaging study and/or report was not reviewed or verified by a [place] Radiologist. Primary Diagnostic Code: VERIFIED BY: / *ELECTRONICALLY FILED* Encounter Notes: All associated encounter notes This section contains the clinical notes associated to the Encounter. Date/Time Encounter Note(s) Provider Source February 28, 2022 09:35 AM PRIMARY CARE SECURE MESSAGING: RUPA LANIER [facility] LOCAL TITLE: PRIMARY CARE SECURE MESSAGING STANDARD TITLE: PRIMARY CARE SECURE MESSAGING DATE OF NOTE: FEBRUARY 28, 2022@09:35 ENTRY DATE: FEBRUARY 28, 2022@09:35:03 AUTHOR: SONU LANIER COSIGNER: URGENCY: STATUS: COMPLETED ------Original Message Sent: 02/28/2022 09:38 AM ET From: VIELKA RUANO [facility]: [facility] Ceasar MARSHALL Subject: Test:CT scan Sonu, I have not yet heard back from my PCP [place]. Thanks Vielka Ruano ------Original Message Sent: 02/28/2022 10:34 AM ET From: SONU LANIER To: VIELKA RUANO Subject: Test:CT scan Vielka, Your PCP reviewed the CT scan results and determ ined the nodule is benign and we will follow up with another CT scan in 12 mon ths. [place] LORENA /es/ Sonu Lanier RN Nurse [facility] Signed: 02/28/2022 09:35 February 16, 2022 11:25 AM PRIMARY CARE SECURE MESSAGING: RUPA LANIER [facility] LOCAL TITLE: PRIMARY CARE SECURE MESSAGING STANDARD TITLE: PRIMARY CARE SECURE MESSAGING DATE OF NOTE: FEBRUARY 16, 2022@11:25 ENTRY DATE: FEBRUARY 16, 2022@11:25:44 AUTHOR: SONU LANIER EXP COSIGNER: URGENCY: STATUS: COMPLETED PRIMARY CARE SECURE MESSAGING Has ADDENDA * ------Original Message Sent: 02/12/2022 07:05 AM ET From: VIELKA RUANO To: [facility] Ceasar MARSHALL Subject: Test:CT scan Lissett Nakelly, Can you please explain/interpret the results of my CT scan done by [facility] in [facility]. Thank-You ------Original Message Sent: 02/16/2022 12:25 PM ET From: SONU LANIER To: VIELKA RUANO Subject: Test:CT scan Vielka, I will have your PCP take a look at the CT scan and follow up with you regarding the results. [place] LORENA /es/ Sonu Lanier RN Nurse [facility] Signed: 02/16/2022 11:25 02/28/2022 ADDENDUM STATUS: COMPLETED 02/16/[address] Chest Low Dose w/o Contrast EXAM [...] months. Dictated by Kaleb Cook MD /yashira/ Sonu Lanier, [place] Nurse [facility] Signed: 02/28/2022 09:08 02/28/2022 ADDENDUM STATUS: COMPLETED Alerting PACT Red provider to review CT scan res ults above and let RN know if any follow up is needed, or any particular messa ge to relay to . /yashira/ Sonu Lanier RN Nurse [facility] Signed: 02/28/2022 09:09 Receipt Acknowledged By: * AWAITING SIGNATURE * ANAYELI JIMÉNEZ II
--- OUTSIDE RECORDS SUMMARY | 2022-08-24 09:11 | XMS_ITS | Encounter Summary ---
:1950 Author Organization [facility] Address [address] [place] [address] Support Name Relationship Address Phone GARETH ALTMAN Unavailable [address] [place] [address] GARETH ALTMAN Unavailable [address] [place] [address] Insurance Providers: All historical and current Section [...] MEDICARE MEDICARE PART February 06, PART A [id number] HARMEN ING PATIENT (WNR) (M) A 2014 [id number] ,[place] MEDICARE MEDICARE PART February 06, PART B [id number] HARMEN ING PATIENT (WNR) (M) B 2014 [id number] ,[place] MEDICARE MEDICARE PART February 06, PART A [id number] HARMEN ING PATIENT (WNR) (M) A 2014 [id number] ,[place] MEDICARE MEDICARE PART February 06, PART B [id number] HARMEN ING PATIENT (WNR) (M) B 2014 [id number] ,[place] MEDICARE MEDICARE PART February 06, PART A [id number] HARMEN ING PATIENT (WNR) (M) A 2014 [id number] ,[place] MEDICARE MEDICARE PART February 06, PART B [id number] HARMEN ING PATIENT (WNR) (M) B 2014 [id number] [place] MEDICARE MEDICARE PART February 06, PART A [id number] 800 KYARA NEVES (WNR) (M) A 2014 78A [phone] ,[place] MEDICARE MEDICARE PART February 06, PART B [id number] 800 KYARA NEVES (WNR) (M) B [id number] [phone] ,VIELKA Selected Encounter This section includes the information on record at [place] for the Encounter. Date/Time Encounter Type Encounter Reason Provider Source Description Jul 25, 2022 12:58 Outpatient PRIMARY ROLANDO GARCIA Encounter CARE/MEDICINE E N IHE Encounter Template Text not used by [place] Plan of Treatment: Future Appointments (+ 6 months) and Future Tests (+/- 45 days) The Plan of Treatment section includes future care activities for the patient from all [place] [facility]. This section includes future appointments and future orders which are active, pending orscheduled.Future Appointments This section includes appointments that were scheduled to occur 6 months from the date of the Encounter, up to a maximum of 20 appointments. The data comes from all [place] treatment facilities. Appointment Date/Time Appointment Type Appointment Facili ty Name Aug 23, 2022 02:30 PM AMBULATORY - MEDICINE [facility] Aug 25, 2022 07:01 AM AMBULATORY - [facility] Active, Pending, and Scheduled Orders This section includes a listing of several types of active, pending, and scheduled orders, including clinic medications orders, diagnostic test orders, procedure orders and consult orders; where the start date of the order is 45 days before the date of the Encounter or 45 days after the date of the Encounter. The data comes from all [place] treatment facilities. Test Date/Time Test Type Test Details Facility Name Jul 25, 2022 01:24 PM Consult Order COMMUNITY CARE-ORTHO SURG [facility] Cons Animal Keeper's Choice Lab Results: +/- 30 days of the encounter This section includes the Chemistry and Hematology Lab Results on record with [place] for the patient. Radiology Reports and Pathology Reports are provided separately, in subsequent sections.Lab Results This section contains the Chemistry/Hematology Results that were resulted 30 days before or 30 daysafter the date of the Encounter. Date/Time Source Result Type Result - Unit Interpretation Reference Range Comment Jul 25, 2022 01:53 PM [facility] CBC Speci men Type: BLOOD No comment enter ed. Ordering Provid er: MAURICE GARCIA Report Released Date/Time: Jul 23, 2022 10:48 AM Reporting Lab: [facility] [id number] Performing Lab: [facility] [address] WBC 6.34 4.0-11.0 RBC 5.10 4.6-6.2 HGB 16.5 13.5-17.9 HCT 47.9 41-54 MCV 93.9 80-100 MCH 32.4 27-33 MCHC 34.4 32.0-37.5 PLT 245 150-400 MPV 11.2 H 7.4-10.4 RDW 12.8 11.5-14.5 Jul 25, 2022 [facility] COMPREHENSIVE METABOLIC Specime n Type: PLASMA 01:53 PM [facility]OC PANEL+MG No comment enter ed. Ordering Provid er: MAURICE GARCIA Report Released Date/Time: Jul 23, 2022 10:48 AM Reporting Lab: [facility] [id number] Performing Lab: [facility] [address] CREATININE 0.9 0.7-1.2 UREA NITROGEN 15 8-26 GLUCOSE 114 H 70-100 SODIUM 136 136-145 POTASSIUM 3.9 3.5-5.1 CHLORIDE 103 98-107 CO2 28 22-29 CALCIUM 9.4 8.4-10.2 PROTEIN,TOTAL 7.0 6.0-8.3 ALBUMIN 4.2 3.5-5.2 BILIRUBIN, TOTAL 0.6 0.2-1.2 MAGNESIUM 2.1 1.6-2.6 ANION GAP 5 5-15 ALKALINE PHOSPHATASE 62 40-150 ALT/SGPT 16 <55 AST/SGOT 17 <34 CREAT EGFR(CKD-EPI) >90 >60 Encounter Notes: All associated encounter notes This section contains the clinical notes associated to the Encounter. Date/Time Encounter Note(s) Provider Source Jul 25, 2022 12:58 PM ADVANCE DIRECTIVE: [facility] LOCAL TITLE: AD NOTIFICATION AND SCREENING STANDARD TITLE: ADVANCE DIRECTIVE DATE OF NOTE: JUL 25, 2022@12:58 ENTRY DATE: JUL 25, 2022@12:58:21 AUTHOR: DELING,JANETTE L EXP COSIGNER: URGENCY: STATUS: COMPLETED ADVANCE DIRECTIVE NOTIFICATION: Patient was given written notification of the [facility] rights: 1. Accept or refuse any medical treatment. 2. Complete a durable power of scraper meat for [facility] care. 3. Complete a living will. ADVANCE DIRECTIVE SCREENING: Does patient have an Advance Directive? The patient does not have an Advance Directive. The patient does not wish to create an Advance Directive for health care. /yashira/ JANETTE WOOD msa Signed: 07/25/2022 12:58
--- OUTSIDE RECORDS SUMMARY | 2022-08-24 09:11 | XMS_ITS | Encounter Summary ---
:1950 Author Organization [facility] Address [address] [place] [address] Support Name Relationship Address Phone GARETH ALTMAN Unavailable [address] [place] [address] GARETH ALTMAN Unavailable [address] [place] [address] Insurance Providers: All historical and current Section [...] MEDICARE MEDICARE PART February 06, PART A [id number] HARMEN ING PATIENT (WNR) (M) A 2014 78A 0 ,[place] MEDICARE MEDICARE PART February 06, PART B [id number] HARMEN ING PATIENT (WNR) (M) B 2014 78A 0 ,[place] MEDICARE MEDICARE PART February 06, PART A [id number] HARMEN ING PATIENT (WNR) (M) A 2014 [id number] 0 ,[place] MEDICARE MEDICARE PART February 06, PART B [id number] HARMEN ING PATIENT (WNR) (M) B 2014 [id number] 0 ,[place] MEDICARE MEDICARE PART February 06, PART A [id number] HARMEN ING PATIENT (WNR) (M) A 2014 [id number] 0 ,[place] MEDICARE MEDICARE PART February 06, PART B [id number] HARMEN ING PATIENT (WNR) (M) B 2014 [id number] [place] MEDICARE MEDICARE PART February 06, PART A [id number] 800 KYARA NEVES (WNR) (M) A 2014 [id number] [phone] ,[place] MEDICARE MEDICARE PART February 06, PART B [id number] 800 KYARA NEVES (WNR) (M) Edmond [id number] [phone] ,[place] Selected Encounter This section includes the information on record at [place] for the Encounter. Date/Time Encounter Type Encounter Description Reason Provider Source Jul 19, 2022 08:27 Outpatient Encounter PRIMARY CARE/MEDICINE AM IHE Encounter Template Text not used by MT Plan of Treatment: Future Appointments (+ 6 months) and Future Tests (+/- 45 days) The Plan of Treatment section includes future care activities for the patient from all [place] [facility]. This section includes future appointments and future orders which are active, pending orscheduled.Future Appointments This section includes appointments that were scheduled to occur 6 months from the date of the Encounter, up to a maximum of 20 appointments. The data comes from all [place] treatment [facility]. Appointment Date/Time Appointment Type Appointment Facili ty Name Jul 25, 2022 01:00 PM AMBULATORY - MEDICINE [facility] Jul 25, 2022 02:00 PM [facility]BULATORY - MEDICINE [facility] Aug 23, 2022 02:30 PM [facility]ULATORY - MEDICINE [facility] Aug 25, 2022 07:01 AM [facility]ORY - [facility] Active, Pending, and Scheduled Orders This section includes a listing of several types of active, pending, and scheduled orders, including clinic medications orders, diagnostic test orders, procedure orders and consult orders; where the start date of the order is 45 days before the date of the Encounter or 45 days after the date of the Encounter. The data comes from all [place] treatment facilities. Test Date/Time Test Type Test Details Facility Name Jul 25, 2022 01:24 PM Consult Order COMMUNITY CARE-ORTHO SURG [facility] Cons Supervisor White Sugar's Choice Lab Results: +/- 30 days of the encounter This section includes the Chemistry and Hematology Lab Results on record with MT for the patient. Radiology Reports and Pathology Reports are provided separately, in subsequent sections.Lab Results This section contains the Chemistry/Hematology Results that were resulted 30 days before or 30 daysafter the date of the Encounter. Date/Time Source Result Type Result - Unit Interpretation Reference Range Comment Jul 25, 2022 01:53 PM [facility] CBC Speci men Type: BLOOD No comment enter ed. Ordering Provid er: MAURICE GARCIA Report Released Date/Time: Jul 23, 2022 10:48 AM Reporting Lab: [facility] [address] [facility] [address] Performing Lab: [facility] [address] WBC 6.34 4.0-11.0 RBC 5.10 4.6-6.2 HGB [...] Jul 23, 2022 10:48 AM Reporting Lab: [facility] [address] [facility] [address] Performing Lab: [facility] [address] CREATININE 0.9 0.7-1.2 UREA NITROGEN 15 8-26 [...] Encounter. Date/Time Encounter Note(s) Provider Source Jul 19, 2022 08:27 AM PRIMARY CARE SECURE MESSAGING: [facility] LOCAL TITLE: PRIMARY CARE SECURE MESSAGING STANDARD TITLE: PRIMARY CARE SECURE MESSAGING DATE OF NOTE: JUL 19, 2022@08:27 ENTRY DATE: JUL 19, 2022@08:27:17 AUTHOR: PRETTY KAUR COSIGNER: URGENCY: STATUS: COMPLETED ------Original Message Sent: 07/19/2022 09:26 AM ET From: PRETTY KAUR To: VIELKA SPARROW Subject: Medication:Shingles Vaccine Yes you can get the Shingles Vaccine. I did add the message to the appointment note. Thanks and Have a wonderful day. /yashira/ PRETTY KAUR [facility] Signed: 07/19/2022 08:27
--- OUTSIDE RECORDS SUMMARY | 2022-08-24 09:11 | XMS_ITS | Encounter Summary ---
:1950 Author Organization [facility] Address [address] [place] [address] Support Name Relationship Address Phone GARETH ALTMAN Unavailable [phone] [phone] [place] [address] GARETH ALTMAN Unavailable [address] [place] [address] Insurance Providers: All historical and current Section [...] MEDICARE MEDICARE PART February 06, PART A [id number] HARMEN ING PATIENT (WNR) (M) A 2014 78A 0 ,[place] MEDICARE MEDICARE PART February 06, PART B [id number] HARMEN ING PATIENT (WNR) (M) B 2014 78A 0 ,[place] MEDICARE MEDICARE PART February 06, PART A [id number] HARMEN ING PATIENT (WNR) (M) A 2014 [id number] 0 ,[place] MEDICARE MEDICARE PART February 06, PART B [id number] HARMEN ING PATIENT (WNR) (M) B 2014 CD77 0 ,[place] MEDICARE MEDICARE PART February 06, PART A [id number] HARMEN ING PATIENT (WNR) (M) A 2014 CD77 0 ,[place] MEDICARE MEDICARE PART February 06, PART B [id number] HARMEN ING PATIENT (WNR) (M) B 2014 [id number] 0 [place] MEDICARE MEDICARE PART February 06, PART A [id number] 800 KYARA NEVES (WNR) (M) A 2014 78A [phone] ,[place] MEDICARE MEDICARE PART February 06, PART B [id number] 800 KYARA NEVES (WNR) (M) B [id number] [phone] ,[place] Selected Encounter This section includes the information on record at [place] for the Encounter. Date/Time Encounter Type Encounter Description Reason Provider Source Jun 24, 2022 09:33 Outpatient Encounter PRIMARY CARE/MEDICINE AM IHE Encounter Template Text not used by [place] Plan of Treatment: Future Appointments (+ 6 months) and Future Tests (+/- 45 days) The Plan of Treatment section includes future care activities for the patient from all [facility] This section includes future appointments [...] BOC Aug 25, 2022 07:01 AM AMBULATORY [facility] Active, Pending, and Scheduled Orders This section includes a listing of several types of active, pending, and scheduled orders, including clinic medications orders, diagnostic test orders, procedure orders and consult orders; where the start date of the order is 45 days before the date of the Encounter or 45 days after the date of the Encounter. The data comes from all [place] treatment facilities. Test Date/Time Test Type Test Details Facility Name Jul 25, 2022 01:24 PM Consult Order COMMUNITY CARE-ORTHO SURG [facility] Cons Tubing Drier's Choice Encounter Notes: All associated encounter notes This section contains the clinical notes associated to the Encounter. Date/Time Encounter Note(s) Provider Source Jun 24, 2022 09:33 AM REPORT OF CONTACT: KYLER HSIEH LOCAL TITLE: PATIENT CONTACT NOTE STANDARD TITLE: REPORT OF CONTACT DATE OF NOTE: JUN 24, 2022@09:33 ENTRY DATE: JUN 24, 2022@09:33:57 AUTHOR: KYLER HSIEH EXP COSIGNER: URGENCY: STATUS: COMPLETED Patient contact Name of : VIELKA SPARROW Name/Relationship of Contact if other than Veter an: Date & Time of Contact: Jun@09:34 Type of Contact: Telephone Reason for Contact: Pt calls stating he has left knee surgery sched uled for 08/09/2022 at the [facility] and would like a [facility] are Consult placed for this. Pt will have records faxed over regarding his ne ed for left knee surgery. Field Sales Executive made a pre op appt for 07/25/2022 with Hema mendoza. /yashira/ KYLER HSIEH PHOTOGRAPHY ASSISTANT Signed: 06/24/2022 09:37 Receipt Acknowledged By: * AWAITING SIGNATURE * JENIFER JONES
--- OUTSIDE RECORDS SUMMARY | 2022-08-24 09:11 | XMS_ITS | Encounter Summary ---
:1950 Author Organization [facility] Address [address] [place] [address] Support Name Relationship Address Phone GARETH ALTMAN Unavailable [address] [phone] [place] [address] GARETH ALTMAN Unavailable [address] [place] [address] Insurance Providers: All historical and current Section [...] MEDICARE MEDICARE PART February 06, PART A [id number] HARMEN ING PATIENT (WNR) (M) A 2014 [id number] 0 ,[place] MEDICARE MEDICARE PART February 06, PART B [id number] HARMEN ING PATIENT (WNR) (M) B 2014 78A 0 ,[place] MEDICARE MEDICARE PART February 06, PART A [id number] HARMEN ING PATIENT (WNR) (M) A 2014 CD77 0 ,[place] MEDICARE MEDICARE PART February 06, PART B [id number] HARMEN ING PATIENT (WNR) (M) B 2014 CD77 0 ,[place] MEDICARE MEDICARE PART February 06, PART A [id number] HARMEN ING PATIENT (WNR) (M) A 2014 CD77 0 ,[place] MEDICARE MEDICARE PART February 06, PART B [id number] HARMEN ING PATIENT (WNR) (M) B 2014 [id number] 0 [place] MEDICARE MEDICARE PART February 06, PART B [id number] 800 KYARA Daniel ATLEE (WNR) (M) B 2014 78A [phone] [place] MEDICARE MEDICARE PART February 06, PART A [id number] 800 KYARA Daniel ATIENT (WNR) (M) A 2014 78A [phone] ,[place] Selected Encounter This section includes the information on record at [place] for the Encounter. Date/Time Encounter Type Encounter Description Reason Provider Source Jan 28, 2022 07:00 Outpatient Encounter COMMUNITY CARE AM CONSULT IHE Encounter Template Text not used by [place] Plan of Treatment: Future Appointments (+ 6 months) and Future Tests (+/- 45 days) The Plan of Treatment section includes future care activities for the patient from all [place] [facility]. This section includes future appointments and future orders which are active, pending orscheduled.Future Appointments This section includes appointments that were scheduled to occur 6 months from the date of the Encounter, up to a maximum of 20 appointments. The data comes from all [place] treatment [facility]. Appointment Date/Time Appointment Type Appointment Facili ty Name Feb 01, 2022 09:00 AM AMBULATORY - [facility] Jul 25, 2022 01:00 PM AMBULATORY - [...] the Encounter. The data comes from all [place] treatment [facility]. Test Date/Time Test Type Test Details Facility Name Jan 14, 2022 12:00 AM Laboratory - Chemistry [facility] SP [facility] Order ONCE Lab Results: +/- 30 days of the encounter This section includes the Chemistry and Hematology Lab Results on record with [place] for the patient. Radiology Reports and Pathology [...] Jan 14, 2022 07:54 AM Reporting Lab: [facility] [address] Performing Lab: [facility] [address] WBC 6.72 4.0-11.0 RBC 4.76 4.6-6.2 HGB 15.4 13.5-17.9 HCT 46.0 41-54 MCV 96.6 80-100 MCH 32.4 27-33 MCHC 33.5 32.0-37.5 PLT 268 150-400 MPV 10.4 7.4-10.4 RDW 12.8 11.5-14.5 Jan 14, 2022 11:48 [facility] HEMOGLOBIN A1C Specimen Type: BLOOD AM No comment enter ed. Ordering Provid er: MAURICE GARICA Report Released Date/Time: Jan 14, 2022 07:54 AM Reporting Lab: [facility] [address] Performing Lab: [facility] [address] HEMOGLOBIN A1C 5.3 4.0-6.0 Jan 14, 2022 11:48 [facility] VIT D 25-OH,TOTAL Specim en Type: SERUM AM No comment enter ed. Ordering Provid er: MAURICE GARCIA Report Released Date/Time: Jan 14, 2022 07:54 AM Reporting Lab: [facility] [address] Performing Lab: [facility] [address] VIT D 25-OH,TOTAL 60 H 12-50 Jan 14, 2022 [facility] TSH W/REFLEX TO FREE Specim en Type: PLASMA 11:48 AM T4 No comment enter ed. Ordering Provid er: MAURICE GARCIA Report Released Date/Time: Jan 14, 2022 07:54 AM Reporting Lab: [facility] [address] Performing Lab: [facility] [address] TSH 0.63 0.35-4.94 Jan 14, 2022 [facility] COMPREHENSIVE METABOLIC Specime n Type: PLASMA 11:48 AM [facility] PANEL+MG No comment enter ed. Ordering Provid er: MAURICE GARCIA Report Released Date/Time: Jan 14, 2022 07:54 AM Reporting Lab: [facility] [address] Performing Lab: [facility] [address] CREATININE 0.9 0.7-1.2 UREA NITROGEN 11 8-26 [...] Jan 14, 2022 07:54 AM Reporting Lab: [facility] [address] Performing Lab: [facility] [address] PSA 2.76 <4.00 Jan 14, 2022 [facility] LIPID PANEL,FASTING Specime n Type: PLASMA 11:47 AM No comment enter ed. Ordering Provid er: MAURICE GARCIA Report Released Date/Time: Jan 14, 2022 11:25 AM Reporting Lab: [facility] [address] Performing Lab: [facility] [address] CHOLESTEROL 190 <199 TRIGLYCERIDE 119 <149 .HDL [...] the Encounter. The data comes from all [place] treatment facilities. Date/Time Radiology Report Provider Source Jan 28, 2022 08:[address] LUNG CANCER SCREENING: [facility] VIELKA SPARROW [id number] -1950 M Exm Date: JAN 28, 2022@08:53 Req Phys: MAURICE GARCIA Pat Loc: [facility] XRAY GENERAL AM (Req'g Loc Img Loc: OUTSOURCE CT Service: Unknown (Case [id number] COMPLETE) NON NM CT LUNG CANCER NINI HERNANDEZ (CT Detailed) CPT:49947 Reason for Study: OUTSIDE STUDY Clinical History: OUTSIDE STUDY Report Status: Electronically Filed Date Report ed: FEBRUARY 16, 2022 Report: This is an outside Imaging study and/or report imported for continuity of patient care. This Imaging study and/or report was not reviewed or verified by a [place] Radiologist. Impression: This is an outside Imaging study and/or report imported for continuity of patient care. This Imaging study and/or report was not reviewed or verified by a [place] Radiologist. Primary Diagnostic Code: VERIFIED BY: / *ELECTRONICALLY FILED*
--- OUTSIDE RECORDS SUMMARY | 2022-08-24 09:11 | XMS_ITS | Encounter Summary ---
:1950 Author Organization [facility] Address [address] [place] [address] Support Name Relationship Address Phone GARETH ALTMAN Unavailable [address] [place] [address] GARETH ALTMAN Unavailable [address] [place] [address] Insurance Providers: All historical and current Section [...] MEDICARE MEDICARE PART February 06, PART A [id number] HARMEN ING PATIENT (WNR) (M) A 2014 [id number] ,[place] MEDICARE MEDICARE PART February 06, PART B [id number] HARMEN ING PATIENT (WNR) (M) B 2014 78A 0 ,[place] MEDICARE MEDICARE PART February 06, PART A [id number] HARMEN ING PATIENT (WNR) (M) A 2014 CD77 0 ,[place] MEDICARE MEDICARE PART February 06, PART B [id number] HARMEN ING PATIENT (WNR) (M) B 2014 CD77 0 ,[place] MEDICARE MEDICARE PART February 06, PART A [id number] HARMEN ING PATIENT (WNR) (M) A 2014 CD77 0 ,[place] MEDICARE MEDICARE PART February 06, PART B [id number] HARMEN ING PATIENT (WNR) (M) B 2014 CD77 0 [place] MEDICARE MEDICARE PART February 06, PART A [id number] 800 KYARA NEVES (WNR) (M) A 2014 78A [phone] ,[place] MEDICARE MEDICARE PART February 06, PART B [id number] 800 KYARA NEVES (WNR) (M) B 2014 78A [phone] VIELKA Selected Encounter This section includes the information on record at [place] for the Encounter. Date/Time Encounter Type Encounter Reason Provider Source Description Jul 23, 2022 Outpatient PRIMARY ICD-10-CM M17.12 CARMEN GARCIA 10:41 AM Encounter CARE/MEDICINE Unilateral primary [place] N osteoarthritis, left knee with Provider Comments: Osteoarthritis of left knee joint (SCT [id number]) IHE Encounter Template Text not used by [place] Assessments - Encounter Diagnoses This section includes the primary and secondary diagnoses documented for the Encounter. Date/Time Primary/Secondary Diagnosis Name Provider Source Diagnosis Jul 23, 2022 PRIMARY Unilateral primary CARMEN GARCIA [facility] 10:41 AM osteoarthritis, [facility] N [facility] left knee Jul 23, 2022 SECONDARY Encounter for CARMEN GARCIA A 10:41 AM other CAL[facility] N [facility] preprocedural examination Plan of Treatment: Future Appointments (+ 6 months) and Future Tests (+/- 45 days) The Plan of Treatment section includes future care activities for the patient from all [place] [facility]. This section includes future appointments and future orders which are active, pending orscheduled.Future Appointments This section includes appointments that were scheduled to occur 6 months from the date of the Encounter, up to a maximum of 20 appointments. The data comes from all [place] treatment facilities. Appointment Date/Time Appointment Type Appointment Facili ty Name Jul 25, 2022 01:00 PM AMBULATORY - MEDICINE [facility] Jul 25, 2022 02:00 PM AMBULATORY - MEDICINE [facility] Aug 23, 2022 02:30 PM AMBULATORY - MEDICINE [facility] Aug 25, 2022 07:01 AM AMBULATORY [facility] Active, Pending, and Scheduled Orders This [...] The data comes from all [place] treatment facilities. Test Date/Time Test Type Test Details Facility Name Jul 25, 2022 01:24 PM Consult Order COMMUNITY CARE-ORTHO SURG [facility] Cons Director Smb Sales's Choice Lab Results: +/- 30 days of the encounter This section includes the Chemistry and Hematology Lab Results on record with [place] for the patient. Radiology Reports and Pathology [...] Jul 23, 2022 10:48 AM Reporting Lab: [facility] [address] Performing Lab: [facility] [address] WBC 6.34 4.0-11.0 RBC 5.10 4.6-6.2 HGB [...] Jul 23, 2022 10:48 AM Reporting Lab: [facility] [address] [facility] [address] Performing Lab: [facility] [address] CREATININE 0.9 0.7-1.2 UREA NITROGEN 15 8-26 [...] Encounter Note(s) Provider Source Jul 25, 2022 12:55 PRE OPERATIVE E & M NOTE: MAURICE GARCIA PM LOCAL TITLE: MEDICINE PRE-OP EVALUATION NOTE [facility] STANDARD TITLE: PRE OPERATIVE E & M NOTE DATE OF NOTE: JUL 25, 2022@12:55 ENTRY DATE: JUL 23, 2022@10:42:07 AUTHOR: MAURICE GARCIA EXP COSIGNER: URGENCY: STATUS: COMPLETED Chief complaint: Pre- op exam Current concerns/HPI: The patient is a 72 year old MALE scheduled for L knee surgery 08/09/2022 at [facility]. Hx of severe knee osteoarthritis left & moderate on the right. Past treatment with hyaluronic acid injections in [place] & PT with partial relief. Past medical history (list previous surgeries/il lnesses/dates): Osteoarthritis of left knee joint (SCT 3 History of male erectile disorder (SCT 839606134) Tinnitus (SCT 86967924) Tobacco use (SCT 2817657 00) Alcohol dependence (SCT 45729368) Cataract (SCT 760698508) Bilateral sensory hearing loss (SCT 4309Polyp Co redd (SCT 22900606) Herpes zoster (SCT 0844027) Allergies: CODEINE (Nov 01, 2013) Active Outpatient Medications (including Supplie s): Non-VA ASPIRIN 325MG TAB 325 MG MOUTH [...] x 2 - Employment: Retired, Worked for [employer] then moved back home and worked for [employer] for 38 years. - Tobacco use: ~ 10 cigars a day - EtOH use 3 drinks per day. - Illicit drugs: Denies Served in [employer] '-72. FHX: ------ M age 78 of intestinal cancer F age 73 of [place]. Surgical hx: - Hx of achilles tendon (11/1989) - Cataract R eye (2013) Review of Systems: General: No weight loss, No fever, +ve weakness in legs HEENT: No change in vision No congestion, runny nose or sore throat. Cardiovascular: Denies chest pain, +ve occasiona l palpitations with activity Lungs: No shortness of breath, cough or sputum. GI: No heartburn. No abdominal pain, no blood in stools. : No burning on urination. Neuro: No headache or dizziness MSK: +ve bilateral knee pain Hem: No bleeding or bruising. Psych: stable mood currently Skin: No rash Physical Exams: General: No acute distress Vitals: 07/25/22 13:13 T: 98.2 F (36.8 C) P: 67 B/P: 110/56 Ht: 72.00 in (182.88 cm) Wt.: 199.40 lb. (90.45 kg) Body Mass Index: 27 Pulse Oximetry: 97% via ROOM AIR Pain: Moderate to severe bilateral knee pain Skin: No concerning lesions Eyes: +ve decreased vision, uses glasses Ears: +ve decreased hearing, uses hearing aids Oral/Throat: Clear Neck/Thyroid: No JVD Cardiac: RRR, +ve for a murmur Chest/Lungs: Bilaterally clear with no respirato ry distress Abdominal: Normal bowel sounds, Non-tender, No h epatosplenomegaly, No masses Extremities: No edema Neurological: Alert and oriented x3 PRE- OP ASSESSMENT: Pre- op cardiac exam: Exam positive for a heart murmur. He admits to i ntermittent palpitations with strenuous activity. EKG (07/25/22) showed normal sinus rhythm, vent rate @ 70bpm, & RBBB [place] denies chest pain, dyspnea, no recent sy ncope episodes. Negative for ischemic, valvular, or cardiomyopathic disease. No hypertension, diabetes, chronic kidney disease, and no cerebrovascular/p eripheral artery disease. Other chronic illnesses: # Bilateral knee osteoarthritis: L > R, scheduled for surgery L knee # Tobacco use: Smokes / PPD # History of herpes zoster (12/2021): Resolved # Tinnitus/ Hearing loss: Very hard of hearing, uses hearing aids PRE- OP PLAN/MEDICATION INSTRUCTIONS : - Avoid/hold any Ibuprofen, Aleve, Excedrin, Adv il, aspirin, and supplements for 7 days prior to darshan sofia/ procedure. - Hold Vitamins and/or supplements for 1 week be fore procedure -Patient will not take any medications AM of surgery. He has no questions or concerns a t this time. This patient is cleared for left knee surgery in an child care leader setting/inpatient. No absolute contraindications to procedure have been identified for additional in terventions/ reduce risks to patient at the time of this assessment. RTC for routine visits after surgery/PRN Alerting nurse to please fax the pre- op note & lab results to [facility] @ [phone] on 07/26/2022 after the CBC and CMP results are available /yashira/ MAURICE GARCIA CNP NP [facility] Signed: 07/25/2022 16:55 Receipt Acknowledged By: * AWAITING SIGNATURE * WALTER DAVENPORT
--- OUTSIDE RECORDS SUMMARY | 2022-08-24 09:11 | XMS_ITS | Encounter Summary ---
:1950 Author Organization [facility] Address [address] [place] [address] Support Name Relationship Address Phone GARETH ALTMAN Unavailable [phone] [address] [phone] [place] [address] GARETH ALTMAN Unavailable [phone] [place] [phone] [place] [address] Insurance Providers: All historical and current Section [...] MEDICARE MEDICARE PART February 06, PART A [id number] HARMEN ING PATIENT (WNR) (M) A 2014 [id number] 0 ,[place] MEDICARE MEDICARE PART February 06, PART B [id number] HARMEN ING PATIENT (WNR) (M) B 2014 [id number] 0 ,[place] MEDICARE MEDICARE PART February 06, PART A [id number] HARMEN ING PATIENT (WNR) (M) A 2014 [id number] 0 ,[place] MEDICARE MEDICARE PART February 06, PART B [id number] HARMEN ING PATIENT (WNR) (M) B 2014 [id number] 0 ,[place] MEDICARE MEDICARE PART February 06, PART A [id number] HARMEN ING PATIENT (WNR) (M) A 2014 [id number] 0 ,[place] MEDICARE MEDICARE PART February 06, PART B [id number] HARMEN ING PATIENT (WNR) (M) B 2014 [id number] [place] MEDICARE MEDICARE PART February 06, PART A [id number] 800 KY[address] Daniel ATLEE (WNR) (M) A 2014 [phone] ,[place] MEDICARE MEDICARE PART February 06, PART B [id number] 800 KYARA Daniel ATIENT (WNR) (M) B [id number] [phone] ,[place] Selected Encounter This section includes the information on record at CT for the Encounter. Date/Time Encounter Type Encounter Description Reason Provider Source Feb 01, 2022 12:00 Outpatient Encounter COMMUNITY CARE AM CONSULT IHE Encounter Template Text not used by CT Plan of Treatment: Future Appointments (+ 6 months) and Future Tests (+/- 45 days) The Plan of Treatment section includes future care activities for the patient from all CT treatmentfacilities. This section includes future appointments and future orders which are active, pending orscheduled.Future Appointments This section includes appointments that were scheduled to occur 6 months from the date of the Encounter, up to a maximum of 20 appointments. The data comes from all CT treatment facilities. Appointment Date/Time Appointment Type Appointment [...] the Encounter. The data comes from all CT treatment facilities. Test Date/Time Test Type Test Details Facility Name Jan 14, 2022 12:00 AM Laboratory - Chemistry PSA [facility] SP L [facility] Order ONCE Lab Results: +/- 30 days of the encounter This section includes the Chemistry and Hematology Lab Results on record with CT for the patient. Radiology Reports and Pathology [...] Jan 14, 2022 07:54 AM Reporting Lab: [facility] [address] Performing Lab: [facility] [address] WBC 6.72 4.0-11.0 RBC 4.76 4.6-6.2 HGB 15.4 13.5-17.9 HCT 46.0 41-54 MCV 96.6 80-100 MCH 32.4 27-33 MCHC 33.5 32.0-37.5 PLT 268 150-400 MPV 10.4 7.4-10.4 RDW 12.8 11.5-14.5 Jan 14, 2022 11:48 [facility] HEMOGLOBIN A1C Specimen Type: BLOOD AM No comment enter ed. Ordering Provid er: MAURICE GARCIA Report Released Date/Time: Jan 14, 2022 07:54 AM Reporting Lab: [facility] [address] Performing Lab: [facility] [address] HEMOGLOBIN A1C 5.3 4.0-6.0 Jan 14, 2022 11:48 [facility] VIT D 25-OH,TOTAL Specim en Type: SERUM AM No comment enter ed. Ordering Provid er: MAURICE GARCIA Report Released Date/Time: Jan 14, 2022 07:54 AM Reporting Lab: [facility] [address] Performing Lab: [facility] [address] VIT D 25-OH,TOTAL 60 H 12-50 Jan 14, 2022 [facility] TSH W/REFLEX TO FREE Specim en Type: PLASMA 11:48 AM T4 No comment enter ed. Ordering Provid er: MAURICE GARCIA Report Released Date/Time: Jan 14, 2022 07:54 AM Reporting Lab: [facility] [address] Performing Lab: [facility] [address] TSH 0.63 0.35-4.94 Jan 14, 2022 [facility] COMPREHENSIVE METABOLIC Specime n Type: PLASMA 11:48 AM [facility] PANEL+MG No comment enter ed. Ordering Provid er: MAURICE GARCIA Report Released Date/Time: Jan 14, 2022 07:54 AM Reporting Lab: [facility] [address] Performing Lab: [facility] [address] CREATININE 0.9 0.7-1.2 UREA NITROGEN 11 8-26 [...] Jan 14, 2022 07:54 AM Reporting Lab: [facility] [address] Performing Lab: [facility] [address] PSA 2.76 <4.00 Jan 14, 2022 [facility] LIPID PANEL,FASTING Specime n Type: PLASMA 11:47 AM No comment enter ed. Ordering Provid er: MAURICE GARCIA Report Released Date/Time: Jan 14, 2022 11:25 AM Reporting Lab: [facility] [address] Performing Lab: [facility] [address] CHOLESTEROL 190 <199 TRIGLYCERIDE 119 <149 .HDL [...] the Encounter. The data comes from all CT treatment facilities. Date/Time Radiology Report Provider Source Jan 28, 2022 08:[address] LUNG CANCER SCREENING: [facility] VIELKA SPARROW [id number] -1950 M Exm Date: JAN 28, 2022@08:53 Req Phys: MAURICE GARCIA Pat Loc: [facility] XRAY GENERAL AM (Req'g Loc Img Loc: OUTSOURCE CT Service: Unknown (Case [id number] COMPLETE) NON CT CT LUNG CANCER NINI HERNANDEZ (CT Detailed) CPT:20823 Reason for Study: OUTSIDE STUDY Clinical History: OUTSIDE STUDY Report Status: Electronically Filed Date Report ed: FEBRUARY 16, 2022 Report: This is an outside Imaging study and/or report imported for continuity of patient care. This Imaging study and/or report was not reviewed or verified by a CT Radiologist. Impression: This is an outside Imaging study and/or report imported for continuity of patient care. This Imaging study and/or report was not reviewed or verified by a CT Radiologist. Primary Diagnostic Code: VERIFIED BY: / *ELECTRONICALLY FILED* Encounter Notes: All associated encounter notes This section contains the clinical notes associated to the Encounter. Date/Time Encounter Note(s) Provider Source Feb 01, 2022 12:00 AM NONVA CONSULT: SEBASTIÁN PALMER [facility] LOCAL TITLE: COMMUNITY CARE CONSULT RESULT NOTE STANDARD TITLE: NONVA CONSULT DATE OF NOTE: FEB 01, 2022 ENTRY DATE: MARCH 04 022@08:11:40 AUTHOR: SEBASTIÁN PALMER EXP COSIGNER: URGENCY: STATUS: COMPLETED [facility] - Scanned Document COMMUNITY CARE-OPHTHALMOLOGY [facility] APPOINTMENT INFORMATION Documentation received from non-VA provider and scanned into [facility]. /yashira/ SEBASTIÁN PALMER Signed: 03/04/2022 08:11
--- OUTSIDE RECORDS SUMMARY | 2022-08-24 09:11 | XMS_ITS | Encounter Summary ---
:1950 Author Organization [facility] Address [address] [place] [address] Support Name Relationship Address Phone GARETH ALTMAN Unavailable [phone] [address] [phone] [place] [address] GARETH ALTMAN Unavailable [address] [place] [phone] [place] [address] Insurance Providers: All historical and current Section [...] MEDICARE MEDICARE PART February 06, PART A [id number] HARMEN ING PATIENT (WNR) (M) A 2014 [id number] ,[place] MEDICARE MEDICARE PART February 06, PART B [id number] HARMEN ING PATIENT (WNR) (M) B 2014 [id number] 0 ,[place] MEDICARE MEDICARE PART February 06, PART A [id number] HARMEN ING PATIENT (WNR) (M) A 2014 [id number] 0 ,[place] MEDICARE MEDICARE PART February 06, PART B [id number] HARMEN ING PATIENT (WNR) (M) B 2014 CD77 0 ,[place] MEDICARE MEDICARE PART February 06, PART A [id number] HARMEN ING PATIENT (WNR) (M) A 2014 CD77 0 ,[place] MEDICARE MEDICARE PART February 06, PART B [id number] HARMEN ING PATIENT (WNR) (M) B 2014 [id number] 0 [place] MEDICARE MEDICARE PART February 06, PART A [id number] 800 KYARA Daniel ATLEE (WNR) (M) A 2014 78A [phone] ,[place] MEDICARE MEDICARE PART February 06, PART B [id number] 800 KYARA Daniel ATIENT (WNR) (M) B 2014A [phone] ,[place] Selected Encounter This section includes the information on record at [place] for the Encounter. Date/Time Encounter Type Encounter Description Reason Provider Source Feb 01, 2022 09:00 Outpatient Encounter COMMUNITY CARE AM CONSULT IHE Encounter Template Text not used by [place] Plan of Treatment: Future Appointments (+ 6 months) and Future Tests (+/- 45 days) The Plan of Treatment section includes future care activities for the patient from all [place] treatmentfacilities. This section includes future appointments and future orders which are active, pending orscheduled.Future Appointments This section includes appointments that were scheduled to occur 6 months from the date of the Encounter, up to a maximum of 20 appointments. The data comes from all [place] treatment facilities. Appointment Date/Time Appointment Type Appointment [...] the Encounter. The data comes from all [place] treatment facilities. Test Date/Time Test Type Test Details Facility Name Jan 14, 2022 12:00 AM Laboratory - Chemistry PSA [facility]UM [facility] SP L [facility] Order ONCE Lab Results: +/- 30 days of the encounter This section includes the Chemistry and Hematology Lab Results on record with [place] for the patient. Radiology Reports and Pathology [...] Jan 14, 2022 07:54 AM Reporting Lab: [facility] [address] Performing Lab: [facility] [address] WBC 6.72 4.0-11.0 RBC 4.76 4.6-6.2 HGB 15.4 13.5-17.9 HCT 46.0 41-54 MCV 96.6 80-100 MCH 32.4 27-33 MCHC 33.5 32.0-37.5 PLT 268 150-400 MPV 10.4 7.4-10.4 RDW 12.8 11.5-14.5 Jan 14, 2022 11:48 [facility] HEMOGLOBIN A1C Specimen Type: BLOOD AM No comment enter ed. Ordering Provid er: MAURICE GARCIA Report Released Date/Time: Jan 14, 2022 07:54 AM Reporting Lab: [facility] [address] Performing Lab: [facility] [address] HEMOGLOBIN A1C 5.3 4.0-6.0 Jan 14, 2022 [facility] COMPREHENSIVE METABOLIC Specime n Type: PLASMA 11:48 AM CBOC PANEL+MG No comment enter ed. Ordering Provid er: MAURICE GARCIA Report Released Date/Time: Jan 14, 2022 07:54 AM Reporting Lab: [facility] [address] Performing Lab: [facility] [address] CREATININE 0.9 0.7-1.2 UREA NITROGEN 11 8-26 GLUCOSE 96 74-100 SODIUM 141 136-145 POTASSIUM 4.4 3.5-5.1 CHLORIDE 103 98-107 CO2 24 22-29 CALCIUM 9.9 8.4-10.2 PROTEIN,TOTAL 7.1 6.0-8.3 ALBUMIN 4.4 3.5-5.2 BILIRUBIN, TOTAL 0.9 0.2-1.2 MAGNESIUM 2.1 1.6-2.6 ANION GAP 14 5-15 ALKALINE PHOSPHATASE 60 40-150 ALT/SGPT 21 <55 AST/SGOT 21 <34 CREAT EGFR(CKD-EPI) >90 >60 Jan 14, 2022 [facility] TSH W/REFLEX TO FREE Specim en Type: PLASMA 11:48 AM T4 No comment enter ed. Ordering Provid er: MAURICE GARCIA Report Released Date/Time: Jan 14, 2022 07:54 AM Reporting Lab: [facility] [address] [facility] [address] Performing Lab: [facility] [address] [facility] [address] [facility] [address] TSH 0.63 0.35-4.94 Jan 14, 2022 11:48 [facility] VIT D 25-OH,TOTAL Specim en Type: SERUM AM No comment enter ed. Ordering Provid er: MAURICE GARCIA Report Released Date/Time: Jan 14, 2022 07:54 AM Reporting Lab: [facility] [address] [facility] [address] Performing Lab: [facility] ONE [facility] [address] VIT D 25-OH,TOTAL 60 H 12-50 Jan 14, 2022 11:48 AM [facility] PSA Speci men Type: SERUM No comment enter ed. Ordering Provid er: MAURICE GARCIA Report Released Date/Time: Jan 14, 2022 07:54 AM Reporting Lab: [facility] [address] [facility] [address] Performing Lab: [facility] [address] [facility] [address] PSA 2.76 <4.00 Jan 14, 2022 [facility] LIPID PANEL,FASTING Specime n Type: PLASMA 11:47 AM No comment enter ed. Ordering Provid er: MAURICE GARCIA Report Released Date/Time: Jan 14, 2022 11:25 AM Reporting Lab: [facility] [address] [facility] [address] Performing Lab: [facility] [address] CHOLESTEROL 190 <199 TRIGLYCERIDE 119 <149 .HDL [...] the Encounter. The data comes from all [place] treatment facilities. Date/Time Radiology Report Provider Source Jan 28, 2022 08:[address] [place] [address] LUNG CANCER SCREENING: [facility] VIELKA SPARROW [id number] -1950 M Exm Date: JAN 28, 2022@08:53 Req Phys: MAURICE GARCIA Pat Loc: [facility] XRAY GENERAL AM (Req'g Loc Img Loc: OUTSOURCE CT Service: Unknown (Case [id number] COMPLETE) NON [place] CT LUNG CANCER NINI HERNANDEZ (CT Detailed) CPT:16792 Reason for Study: OUTSIDE STUDY Clinical History: OUTSIDE STUDY Report Status: Electronically Filed Date Report ed: FEBRUARY 16, 2022 Report: This is an outside Imaging study and/or report imported for continuity of patient care. This Imaging study and/or report was not reviewed or verified by a [place] Radiologist. Impression: This is an outside Imaging study and/or report imported for continuity of patient care. This Imaging study and/or report was not reviewed or verified by a [place] Radiologist. Primary Diagnostic Code: VERIFIED BY: / *ELECTRONICALLY FILED*
--- OUTSIDE RECORDS SUMMARY | 2022-08-24 09:12 | XMS_ITS | Encounter Summary ---
:1950 Author Organization [facility] Address [address] [place] [address] Support Name Relationship Address Phone GARETH ALTMAN Unavailable [phone] [place] [address] GARETH ALTMAN Unavailable [address] [place] [address] Insurance Providers: All historical and current Section [...] MEDICARE MEDICARE PART February 06, PART A [id number] HARMEN ING PATIENT (WNR) (M) A 2014 [id number] ,[place] MEDICARE MEDICARE PART February 06, PART B [id number] HARMEN ING PATIENT (WNR) (M) B 2014 [id number] ,[place] MEDICARE MEDICARE PART February 06, PART A [id number] HARMEN ING PATIENT (WNR) (M) A 2014 [id number] ,[place] MEDICARE MEDICARE PART February 06, PART B [id number] HARMEN ING PATIENT (WNR) (M) B 2014 [id number] 0 ,[place] MEDICARE MEDICARE PART February 06, PART A [id number] HARMEN ING PATIENT (WNR) (M) A 2014 [id number] 0 ,[place] MEDICARE MEDICARE PART February 06, PART B [id number] HARMEN ING PATIENT (WNR) (M) B 2014 [id number] [place] MEDICARE MEDICARE PART February 06, PART A [id number] 800 KYARA NEVES (WNR) (M) A 2014 78A [phone] ,[place] MEDICARE MEDICARE PART February 06, PART B [id number] 800 KYARA NEVES (WNR) (M) B 2014 78A [phone] ,[place] Selected Encounter This section includes the information on record at [place] for the Encounter. Date/Time Encounter Type Encounter Reason Provider Source Description Jul 25, 2022 Outpatient PRIMARY ICD-10-CM M17.12 CARMEN GARCIA 01:00 PM Encounter CARE/MEDICINE Unilateral primary CALIN N osteoarthritis, left knee with Provider Comments: Osteoarthritis of left knee joint (SCT [id number]) IHE Encounter Template Text not used by [facility] Assessments - Encounter Diagnoses This section includes the primary and secondary diagnoses documented for the Encounter. 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 [facility] Aug 03, 2022 SECONDARY Other specified GRUNZKE,VIVIAN [facility] 08:18 AM cataract [facility] Aug 03, 2022 SECONDARY Polyp of colon GRUNSONGVIVIAN [facility] 08:18 AM [facility] Aug 03, 2022 SECONDARY Sensorineural GRUNZKE,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 This section includes future appointments and future orders which are active, pending orscheduled.Future Appointments This section includes appointments that were scheduled to occur 6 months from the date of the Encounter, up to a maximum of 20 appointments. The data comes from all [facility]. Appointment Date/Time Appointment Type Appointment Facili ty Name Aug 23, 2022 02:30 PM AMBULATORY - MEDICINE [facility] Aug 25, 2022 07:01 AM AMBULATORY - NONE [facility] Active, Pending, and Scheduled Orders This section includes a listing of several types of active, pending, and scheduled orders, including clinic medications orders, diagnostic test orders, procedure orders and consult orders; where the start date of the order is 45 days before the date of the Encounter or 45 days after the date of the Encounter. The data comes from all [facility]. Test Date/Time Test Type Test Details Facility Name Jul 25, 2022 01:24 PM Consult Order COMMUNITY CARE-ORTHO SURG [facility] Cons Traveling Plant Operator's Choice Lab Results: +/- 30 days of the encounter This section includes the Chemistry and Hematology Lab Results on record with [place] for the patient. Radiology Reports and Pathology [...] Jul 23, 2022 10:48 AM Reporting Lab: [facility] [address] [facility] [address] Performing Lab: [facility] [address] [facility] [address] WBC 6.34 4.0-11.0 RBC 5.10 4.6-6.2 HGB 16.5 13.5-17.9 HCT 47.9 41-54 MCV 93.9 80-100 MCH 32.4 27-33 MCHC 34.4 32.0-37.5 PLT 245 150-400 MPV 11.2 H 7.4-10.4 RDW 12.8 11.5-14.5 Jul 25, 2022 [facility] COMPREHENSIVE METABOLIC Specime n Type: PLASMA 01:53 PM CBOC PANEL+MG No comment enter ed. Ordering Provid er: ADRICORDELLTERIMAURICE Hardy Report Released Date/Time: Jul 23, 2022 10:48 AM Reporting Lab: [facility] [address] [facility] [address] Performing Lab: [facility] [address] [facility] [address] CREATININE 0.9 0.7-1.2 UREA NITROGEN 15 8-26 GLUCOSE 114 H 70-100 SODIUM 136 136-145 POTASSIUM 3.9 3.5-5.1 CHLORIDE 103 98-107 CO2 28 22-29 CALCIUM 9.4 8.4-10.2 PROTEIN,TOTAL 7.0 6.0-8.3 ALBUMIN 4.2 3.5-5.2 BILIRUBIN, TOTAL 0.6 0.2-1.2 MAGNESIUM 2.1 1.6-2.6 ANION GAP 5 5-15 ALKALINE PHOSPHATASE 62 40-150 ALT/SGPT 16 <55 AST/SGOT 17 <34 CREAT EGFR(CKD-EPI) >90 >60 Vital Signs: All taken on the encounter date This section contains inpatient and outpatient Vital Signs collected on the date of the Encounter. Date/Time Temperature Pulse Blood Respiratory SP02 Pain Height Weight [place] dy Source Pressure Rate Mass Index Jul 25, 98.2 F 67 110/56 97 % 0 72 in 199.4 27 [facility] 2021 01:13 /min mm[Hg] lb [facility] Immunizations: All administered on the encounter date This section contains immunizations associated to the Encounter. Immunization Series Date Issued Reaction Comments ZOSTER RECOMBINANT 1 Jul 25, 2022 Social History: Smoking Status (Most current) and Tobacco Use (All prior to encounter date) This section includes the most current, and the historical, smoking and tobacco-related health factors from the [place] facility where the Encounter took place.Current Smoking Status This section includes the most current smoking, or tobacco-related health factor, from the [place] facility where the Encounter took place. Date/Time Current Smoking Status Comment Facility Jan 14, 2022 11:00 AM VA-TOBACCO USER EVERY DAY [facility] Tobacco Use History This section includes a history of the smoking, or tobacco- related health factors, that were collected on or before the date of the Encounter. The data comes from the [place] facility where the Encounter took place. 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 NO [facility] Jan 14, 2022 11:00 AM VA-TOBACCO USE MED NO [facility] Jan 14, 2022 11:00 AM VA-TOBACCO USER EVERY DAY [facility] Feb 01, 2019 11:32 AM VA-TOBACCO DOESNT USE WI 30 MIN [facility] WAKEUP Feb 01, 2019 11:32 AM VA-TOBACCO USE > 15 LESS THAN 30 [facility] Feb 01, 2019 11:32 AM VA-TOBACCO USE ADVICE [facility] Feb 01, 2019 11:32 AM VA-TOBACCO USE RADIOLOGIC TECHNOLOGY TEACHER NO [facility] Feb 01, 2019 11:32 AM VA-TOBACCO USE MED NO [facility] Feb 01, 2019 11:32 AM VA-TOBACCO USER EVERY DAY [facility] Nov 24, 2017 02:42 PM CURRENT TOBACCO USER [facility] Apr 27, 2017 08:08 AM CURRENT TOBACCO USER [facility] Encounter Notes: All associated encounter notes This section contains the clinical notes associated to the Encounter. Date/Time Encounter Note(s) Provider Source Jul 25, 2022 01:15 PM PRIMARY CARE NURSING NOTE: WALTER DAVENPORT CB LOCAL TITLE: CBOC NURSING PROGRESS NOTE STANDARD TITLE: PRIMARY CARE NURSING NOTE DATE OF NOTE: JUL 25, 2022@13:15 ENTRY DATE: JUL 25, 2022@13:15:19 AUTHOR: WALTER DAVENPORT EXP COSIGNER: URGENCY: STATUS: COMPLETED TYPE OF VISIT: Appointment Check In Type of appointment: In-person appointment REASON FOR VISIT: preop Left knee; 08/09/2022 [facility] ALLERGIES: CODEINE (Nov 01, 2013) VITAL SIGNS: Blood Pressure: 110/56 (07/25/2022 13:13) Pulse: 67 (07/25/2022 13:13) Respiration: 20 (01/14/2022 11:02) Temperature: 98.2 F [36.8 C] (07/25/2022 13:13) Weight: 199.4 lb [90.45 kg] (07/25/2022 13:13) Height: 72 in [182.9 cm] (07/25/2022 13:13) BMI: 27.1 O2 Sat: 97% (07/25/2022 13:13) Pain: 0 (07/25/2022 13:13) PAIN SCREEN: Patient is not having significant pain that the y wish to discuss with their provider today. PTSD Screening: PC-PTSD-5 A PTSD screening test (PC-PTSD-5) was negative (score=0). Have you ever had any experience that was so fr ightening, horrible or upsetting that, IN THE PAST MONTH, you: Have you ever experienced this kind of event? NO 1. Had nightmares about the event(s) or thought about the event(s) when you did not want to? Response not required due to responses to other questions. 2. Tried hard not to think about the event(s) o r went out of your way to avoid situations that reminded you of the ev ent(s)? Response not required due to responses to other questions. 3. Been constantly on guard, watchful, or easil y startled? Response not required due to responses to other questions. 4. [place] numb or detached from people, activitie s, or your surroundings? Response not required due to responses to other questions. 5. [place] guilty or unable to stop blaming yourse lf or others for the event(s) or any problems the event(s) may have caused? Response not required due to responses to other questions. COVID-19 Immunization Primary Series: Refuses all COVID-19 vaccines (current and futu re) Reason: getting elsewhere Vaccine deferred to later date. Reason: getting vaccine elsewhere Sexual Orientation: The patient thinks of their sexual orientation as: Don't Know Herpes Zoster (Shingles) Vaccine: The patient received recombinant zoster vaccine (RZV) 0.5 ml IM in Right deltoid. Fiber Analyst: [employer] Lot#s and Expiration Date: 445 exp;06/23/2023 D: [id number] exp;06/23/2023 Administered by protocol/policy Complications: None The VIS for the recombinant zoster vaccine (RZV ) dated Nov was given to the patient. /yashira/ WALTER DAVENPORT Signed: 07/25/2022 14:03
--- OUTSIDE RECORDS SUMMARY | 2022-08-24 09:13 | XMS_ITS | Encounter Summary ---
:1950 Author Organization [facility] Address [address] [place] [id number] Support Name Relationship Address Phone GARETH ALTMAN Unavailable [id number] [place] [address] GARETH ALTMAN Unavailable [phone] [phone] [place] [address] Insurance Providers: All historical and current Section [...] MEDICARE MEDICARE PART February 06, PART A [id number] HARMEN ING PATIENT (WNR) (M) A 2014 [id number] ,[place] MEDICARE MEDICARE PART February 06, PART B [id number] HARMEN ING PATIENT (WNR) (M) B 2014 [id number] ,[place] MEDICARE MEDICARE PART February 06, PART A [id number] HARMEN ING PATIENT (WNR) (M) A 2014 [id number] ,[place] MEDICARE MEDICARE PART February 06, PART B [id number] HARMEN ING PATIENT (WNR) (M) B 2014 [id number] ,[place] MEDICARE MEDICARE PART February 06, PART A [id number] HARMEN ING PATIENT (WNR) (M) A 2014 [id number] ,[place] MEDICARE MEDICARE PART February 06, PART B [id number] HARMEN ING PATIENT (WNR) (M) B 2014 [id number] [place] MEDICARE MEDICARE PART February 06, PART A [id number] 800 KYARA P ATIENT (WNR) (M) A 2014 [id number] [place] MEDICARE MEDICARE PART February 06, PART B [id number] 800 KYARA P ATIENT (WNR) (M) B 2014A [phone] [place] Selected Encounter This section includes the information on record at [facility] for the Encounter. Date/Time Encounter Type Encounter Reason Provider Source Description Jul 28, 2022 HC PRO PHONE TELEPHONE/MEDICIN ICD-10-CM Z71.9 Cl FELDMAN 09:37 AM CALL 5-10 MIN E Counseling, D unspecified with Provider Comments: Counseling, unspecified IHE Encounter Template Text not used by [facility] Assessments - Encounter Diagnoses This section includes the primary and secondary diagnoses documented for the Encounter. Date/Time Primary/Secondary Diagnosis Name Provider Source Diagnosis Jul 28, 2022 PRIMARY Counseling, IMELDA FELDMAN [facility] Lyla 09:37 AM unspecified D HCS Plan of Treatment: Future Appointments (+ 6 months) and Future Tests (+/- 45 days) The Plan of Treatment section includes future care activities for the patient from [facility] This section includes future appointments and future orders which are active, pending orscheduled.Future Appointments This section includes appointments that were scheduled to occur 6 months from the date of the Encounter, up to a maximum of 20 appointments. The data comes from all [facility] treatment facilities. Appointment Date/Time Appointment Type Appointment Facili ty Name Aug 23, 2022 02:30 PM AMBULATORY - MEDICINE [facility] Aug 25, 2022 07:01 AM AMBULATORY - [...] the Encounter. The data comes from all [facility] treatment facilities. 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 Radiology Reports and Pathology [...] Jul 23, 2022 10:48 AM Reporting Lab: [facility] [id number] Performing Lab: [facility] [id number] WBC 6.34 4.0-11.0 RBC 5.10 4.6-6.2 HGB [...] Jul 23, 2022 10:48 AM Reporting Lab: [facility] [id number] Performing Lab: [facility] [id number] CREATININE 0.9 0.7-1.2 UREA NITROGEN 15 8-26 [...] Encounter. Date/Time Encounter Note(s) Provider Source Jul 28, 2022 09:37 AM REFERRAL NOTE: IMELDA FELDMAN N[facility] IS [facility] LOCAL TITLE: [place] REFERRAL CARE TEAM STANDARD TITLE: REFERRAL NOTE DATE OF NOTE: JUL 28, 2022@09:37 ENTRY DATE: JUL 28, 2022@09:38:03 AUTHOR: IMELDA FELDMAN EXP COSIGNER: URGENCY: STATUS: COMPLETED Initial Note Patient referred from Specialty Care service: O rthopedics Reason for referral: knee pain Is the patient eligible for care in the [facility] based on distance: No Patient is OPTING-IN to Community Care: Community Care appointment scheduling preferenc es: [facility] provider preference: [place] Preferred appointment day of the week: 08/09/22 Preferred appointment time of day: n/a Scheduling preference: [facility] Patient communication preference: phone [facility] is able to see the patient as soon as 2022. Patient is also eligible to choose to receive care in community based on wait time eligibility verified by the Decision Support To ol (DST) Patient was informed of the appointment options so that an informed decision could be made about their healthcare needs. Consult forwarded to [facility] for sena stern /yashira/ IMELDA FELDMAN, RN, MSN Specialty Care Web Services Architect Signed: 07/28/2022 09:39
--- OUTSIDE RECORDS SUMMARY | 2022-08-24 09:14 | XMS_ITS | Encounter Summary ---
:1950 [address] [facility] Address [address] [place] [address] Support Name Relationship Address Phone GARETH ALTMAN Unavailable [phone] [place] [address] GARETH ALTMAN Unavailable [phone] [phone] [place] [address] Insurance Providers: All historical and current Section [...] MEDICARE MEDICARE PART February 06, PART A [id number] HARMEN ING PATIENT (WNR) (M) A 2014 [id number] ,[place] MEDICARE MEDICARE PART February 06, PART B [id number] HARMEN ING PATIENT (WNR) (M) B 2014 [id number] ,[place] MEDICARE MEDICARE PART February 06, PART A [id number] HARMEN ING PATIENT (WNR) (M) A 2014 [id number] ,[place] MEDICARE MEDICARE PART February 06, PART B [id number] HARMEN ING PATIENT (WNR) (M) B 2014 [id number] 0 ,[place] MEDICARE MEDICARE PART February 06, PART A [id number] HARMEN ING PATIENT (WNR) (M) A 2014 [id number] ,[place] MEDICARE MEDICARE PART February 06, PART B [id number] HARMEN ING PATIENT (WNR) (M) B 2014 [id number] [place] MEDICARE MEDICARE PART February 06, PART A [id number] 800 KYARA NEVES (WNR) (M) A [id number] ,[place] MEDICARE MEDICARE PART February 06, PART B [id number] 800 KYARA NEVES (WNR) (M) B [id number] [phone] ,[place] Selected Encounter This section includes the information on record at [facility] for the Encounter. Date/Time Encounter Type Encounter Reason Provider Source Description Aug 23, 2022 Outpatient PRIMARY ICD-10-CM Z01.818 CARMEN GARCIA 02:30 PM Encounter CARE/MEDICINE Encounter for CALIN Hardy other preprocedural examination with Provider Comments: PreOp Exam IHE Encounter Template Text not used by [facility] Assessments - Encounter Diagnoses This section includes the primary and secondary diagnoses documented for the Encounter. Date/Time Primary/Secondary Diagnosis Name Provider Source Diagnosis Aug 23, 2022 PRIMARY Encounter for other KIZZY GARCIA [facility] 03:18 PM preprocedural [facility] examination Aug 23, 2022 SECONDARY Unilateral primary KIZZY GARCIA [facility] 03:18 PM osteoarthritis, [facility] left knee Plan of Treatment: Future Appointments (+ 6 months) and Future Tests (+/- 45 days) The Plan of Treatment section includes future care activities for the patient from [facility]. This section includes future appointments and future orders which are active, pending orscheduled.Future Appointments This section includes appointments that were scheduled to occur 6 months from the date of the Encounter, up to a maximum of 20 appointments. The data comes from all [facility] treatment facilities. Appointment Date/Time Appointment Type Appointment Facili ty Name Aug 25, 2022 07:01 AM AMBULATORY - [facility] Active, Pending, and Scheduled Orders This section includes a listing of several types of active, pending, and scheduled orders, including clinic medications orders, diagnostic test orders, procedure orders and consult orders; where the start date of the order is 45 days before the date of the Encounter or 45 days after the date of the Encounter. The data comes from all [facility] treatment [facility]. 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 Radiology Reports and Pathology [...] Jul 23, 2022 10:48 AM Reporting Lab: [facility] [id number] Performing Lab: [facility] [id number] WBC 6.34 4.0-11.0 RBC 5.10 4.6-6.2 HGB [...] Jul 23, 2022 10:48 AM Reporting Lab: [facility] [id number] Performing Lab: [facility] [id number] CREATININE 0.9 0.7-1.2 UREA NITROGEN 15 8-26 [...] [place] dy Source Pressure Rate Mass Index Aug 23, 98.1 F 70 124/80 94 % 0 72 in lb 27 [facility] 2021 02:48 /min mm[Hg] [facility] Social History: Smoking Status (Most current) and Tobacco Use (All prior to encounter date) This section includes the most current, and the historical, smoking and tobacco-related health factors from the [facility] facility where the Encounter took place.Current Smoking Status This section includes the most current smoking, or tobacco-related health factor, from the [facility] facility where the Encounter took place. Date/Time Current Smoking Status Comment Facility Jan 14, 2022 11:00 AM VA-TOBACCO USER EVERY DAY [facility] Tobacco Use History This section includes a history of the smoking, or tobacco- related health factors, that were collected on or before the date of the Encounter. The data comes from the [facility] facility where the Encounter took place. 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 [facility] Jan 14, 2022 11:00 AM VA-TOBACCO USE MED NO [facility] Jan 14, 2022 11:00 AM VA-TOBACCO USER EVERY DAY [facility] Feb 01, 2019 11:32 AM VA-TOBACCO DOESNT USE WI 30 MIN [facility] WAKEUP Feb 01, 2019 11:32 AM VA-TOBACCO USE > 15 LESS THAN 30 [facility] Feb 01, 2019 11:32 AM VA-TOBACCO USE ADVICE [facility] Feb 01, 2019 11:32 AM VA-TOBACCO USE 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 Date/Time Encounter Note(s) Provider Source Aug 23, 2022 02:49 PRIMARY CARE NURSING NOTE: WALTER DAVENPORT PM LOCAL TITLE: CBOC NURSING PROGRESS NOTE [facility]OC STANDARD TITLE: PRIMARY CARE NURSING NOTE DATE OF NOTE: AUG 23, 2022@14:49 ENTRY DATE: AUG 23, 2022@14:50:01 AUTHOR: WALTER DAVENPORT EXP COSIGNER: URGENCY: STATUS: COMPLETED TYPE OF VISIT: Appointment Check In Type of appointment: In-person appointment REASON FOR VISIT: Preop Left knee surgery at [facility] on er . ALLERGIES: CODEINE (Nov 01, 2013) VITAL SIGNS: Blood Pressure: 124/80 (08/23/2022 14:48) Pulse: 70 (08/23/2022 14:48) Respiration: 20 (01/14/2022 11:02) Temperature: 98.1 F [36.7 C] (08/23/2022 14:48) Weight: 202 lb [91.63 kg] (08/23/2022 14:48) Height: 72 in [182.9 cm] (08/23/2022 14:48) BMI: 27.5 O2 Sat: 94% (08/23/2022 14:48) Pain: 0 (08/23/2022 14:48) PAIN SCREEN: Patient is not having significant pain that the y wish to discuss with their provider today. Influenza Immunization: The patient declines to receive the recommended dose of seasonal influenza vaccine. Comment: Patient declines. Pneumococcal Conjugate Vaccine (PCV15/PCV20): The patient declines to receive the recommended dose of pneumococcal conjugate vaccine. Comment: Patient declines. 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 The [place]/caregiver was informed that we will continue to ask this screening question every 5 years. They can cont act their provider/healthcare team if they have concerns about exposures and would like to be screened sooner. Printed information was offered and provided if desired. /yashira/ WALTER DAVENPORT LPN Signed: 08/23/2022 14:54 Aug 23, 2022 07:38 PRE OPERATIVE E & M NOTE: MAURICE GARCIA AM LOCAL TITLE: MEDICINE PRE-OP EVALUATION NOTE [facility] STANDARD TITLE: PRE OPERATIVE E & M NOTE DATE OF NOTE: AUG 23, 2022@07:38 ENTRY DATE: AUG 23, 2022@07:38:32 AUTHOR: MAURICE GARCIA EXP COSIGNER: URGENCY: STATUS: COMPLETED MEDICINE PRE-OP EVALUATION NOTE Has ADDENDA Chief complaint: Pre- op exam Current concerns/HPI: The patient is a 72 year old MALE scheduled for L knee surgery 08/25/[address] [facility]. Hx of severe knee osteoarthritis left & moderate on the right. Past treatment with hyaluronic acid injections in [place] & PT with partial relief. Past medical history (list previous surgeries/il lnesses/dates): Osteoarthritis of left knee joint (SCT 3 History of male erectile disorder (SCT 534691471) Tinnitus (SCT 63199031) Tobacco use (SCT 5334144 00) Alcohol dependence (SCT 21572513) Cataract (SCT 211003677) Bilateral sensory hearing loss (SCT 4309Polyp Co redd (SCT 29883539) Herpes zoster ([facility] 8496560) Allergies: CODEINE (Nov 01, 2013) Active Outpatient [...] x 2 - Employment: Retired, Worked for [employer] then moved back home and worked for [employer] for 38 years. - Tobacco use: ~ 10 cigars a day - EtOH use 3 drinks per day. - Illicit drugs: Denies Served in [employer] '68-72. FHX: ------ M age 78 of intestinal cancer F age 73 of MS. Surgical hx: - Hx of achilles tendon [...] Physical Exams: General: No acute distress Vitals: 08/23/22 14:48 T: 98.1 F (36.7 C) P: 70 B/P: 124/80 Ht: 72.00 in (182.88 cm) Wt: 202.00 lb (91.63 kg) Body Mass Index: 27 Pulse Oximetry: 94% via ROOM AIR Pain: Moderate to severe [...] No edema Neurological: Alert and oriented x3 Labs 07/25/2022 : CREAT EGFR(CKD-EPI) >90 Ref: >=60 SODIUM 136 mmol/L 136 - 145 POTASSIUM 3.9 mmol/L 3.5 - 5.1 CHLORIDE 103 mmol/L 98 - 107 CO2 28 mmol/L 22 - 29 ANION GAP 5 mmol/L 5 - 15 GLUCOSE 114 H mg/dL 70 - 100 UREA NITROGEN 15 mg/dL 8 - 26 CREATININE 0.9 mg/dL 0.7 - 1.2 PROTEIN,TOTAL 7.0 g/dL 6.0 - 8.3 values. ALBUMIN 4.2 g/dL 3.5 - 5.2 CALCIUM 9.4 mg/dL 8.4 - 10.2 MAGNESIUM 2.1 mg/dL 1.6 - 2.6 BILIRUBIN, TOTAL 0.6 mg/dL 0.2 - 1.2 ALKALINE PHOSPHATASE 62 U/L 40 - 150 AST/SGOT 17 U/L Ref: <=34 ALT/SGPT 16 U/L Ref: <=55 CBC: -------- WBC 6.34 K/cmm 4.0 - 11.0 RBC 5.10 M/cmm 4.6 - 6.2 HGB 16.5 g/dL 13.5 - 17.9 HCT 47.9 % 41 - 54 MCV 93.9 fL 80 - 100 MCH 32.4 pg 27 - 33 MCHC 34.4 g/dL 32.0 - 37.5 RDW 12.8 % 11.5 - 14.5 PLT 245 K/cmm 150 - 400 MPV 11.2 H fL 7.4 - 10.4 PRE- OP ASSESSMENT: Pre- op cardiac exam: Exam positive for a heart murmur. He admits to i ntermittent palpitations with strenuous activity. EKG (07/25/22) showed normal sinus rhythm, vent rate @ 70bpm, & RBBB [place] denies chest pain, dyspnea, no recent sy ncope episodes. Negative for ischemic, valvular, or cardiomyopathic disease. No hypertension, diabetes, chronic kidney disease, and no cerebrovascular/p eripheral artery disease. 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 No absolute contraindications to procedure have been identified for additional interventions/ reduce risks to patient at the time of this assessment. RTC for routine visits after surgery/PRN Alerting nurse to please fax the pre- op note & lab results to [facility] & [facility] @ [phone] today /es/ MAURICE GARCIA CNP NP [place] Signed: 08/23/2022 15:18 Receipt Acknowledged By: * AWAITING SIGNATURE * WALTER DAVENPORT 08/23/2022 ADDENDUM STATUS: COMPLETED Preop was faxed to [facility] pre[facility]mit. /yashira/ WALTER DAVENPORT LPN Signed: 08/23/2022 15:47
[2022-08-24 15:03] LABS: SARS PCR* Negative SARS-CoV-2 (Negative)
== END 2022-08-24 09:01 | disposition home or self-care (01) ==
LOC: FBOREF 09:00
PROVIDERS: Visit Provider Orthopaedic Surgery
DX: Z20.822 Contact with and (suspected) exposure to COVID-19 (principal)
CPT/HCPCS: 87635

== ENCOUNTER 2022-08-25 09:50 | Day surgery (SDC) | payer OTHER, SELFPAY ==
[2022-07-25 08:15] VITALS: BMI 1026.3
[2022-08-25] VITALS (21 sets, daily range): BP systolic 115–144; BP diastolic 66–91; PULSE 52–84; RESP 16–18; TEMP 36.3–36.8; O2SAT 93–100; BMI 28.2; BMI 28.1
[2022-08-25] MEDS: LACTATED RINGERS 1000 ML 1,000 ML 100 ML IV ×2 (11:10→14:00)
[2022-08-25] MEDS: SODIUM CHLORIDE 0.9 % (FLUSH) 10 ML SYRINGE IVF (11:10)
[2022-08-25] MEDS: ETHYL CHLORIDE 1 APPLICATION 1 APPLIC TOPICAL (11:10)
[2022-08-25] MEDS: ACETAMINOPHEN 500 MG TABLET 1000 MG PO ×2 (11:20→18:16)
[2022-08-25] MEDS: CELECOXIB 200 MG CAPSULE PO ×2 (11:20→20:21)
[2022-08-25] MEDS: OXYCODONE (CR) 10 MG TAB.ER.12H PO (11:20)
[2022-08-25] MEDS: MIDAZOLAM HCL 1 MG/ML inj IVP (11:25)
[2022-08-25] MEDS: fentaNYL 100 MCG/2 ML inj IVP (11:25)
--- NOTE | 2022-08-25 11:33 | SUR.PREOP ---
TIME?OUT:?1122, left knee PT/RN/MDA?VERIFICATION?OF?SURGICAL?SITE,?PROCEDURE,?AND?CONSENT OBTAINED?PRIOR?TO?INVASIVE?PROCEDURE.
[2022-08-25] MEDS: CEFAZOLIN 2 GM INJ IVP (11:38)
[2022-08-25] MEDS: TRANEXAMIC ACID 100 MG/ML INJ 1000 MG IV (11:40)
--- NOTE | 2022-08-25 12:36 | P.NB_ITS ---
Nerve Block Nerve Block Date Seen: 08/25/22 Type of block requested by surgeon for post-operative analgesia: adductor canal Side: left Time out performed: Yes Verification of patient name: Yes Verification of date of : Yes Site marking: site marked Name of person performing procedure: Yaw Continuous monitoring Was continuous monitoring of O2 sat, B/P, security monitor, recorded every 15 minutes?: Yes Procedure Checklist: sterile prep, needles and gloves Ultrasound guided. Images saved: Yes Medications given in 5ml increments after negative aspiration: Ropivicaine %: 0.5 mL: 20 Needle gauge: 20 Decadron (mg): 10 Precedex (mcg): 25 Patient tolerated procedure well: Yes Additional comments: Needle noted adjacent to nerve Block Charges Block Charge (with Pro Fee): Femoral Nerve Use of Ultrasound Machine for Block: Yes- US Guidance/pain block
--- NOTE | 2022-08-25 12:36 | W.PM.NB ---
Nerve Block Nerve Block Time Seen by Provider: Date Seen: 08/25/22 Type of block requested by surgeon for post-operative analgesia: geniculars Side: left Time out performed: Yes Verification of patient name: Yes Verification of date of : Yes Site marking: site marked Name of person performing procedure: Yaw Continuous monitoring Was continuous monitoring of O2 sat, B/P, laboratory monitor, recorded every 15 minutes?: Yes Procedure Checklist: sterile prep, needles and gloves Medications given in 5ml increments after negative aspiration: Ropivicaine %: 0.5 mL: 9 Needle gauge: 25 Patient tolerated procedure well: Yes Block Charges Block Charge (with Pro Fee): Genicular Nerve Block Use of Ultrasound Machine for Block: No
--- NOTE | 2022-08-25 12:59 | CRLHL7_ITS ---
For Patients: As a result of the Cures Act, medical imaging exams and procedure reports are released immediately into your electronic medical record. You may view this report before your referring provider. If you have questions, please contact your health care provider. Indication: Left knee arthroplasty Technique: Left knee 2 view Findings: Hardware from a left knee arthroplasty is in satisfactory position. Bone alignment is normal. No sign of acute fracture. There are postoperative changes in the soft tissues. Dictated by Smooth Baxter MD @ 08/25/2022 3:12:33 PM (Electronically Signed)
--- NOTE | 2022-08-25 13:01 | PM.ORPRC ---
Procedure Note Date of procedure: 08/25/22 Procedure: SURGEON: Jack Paniagua MD COMPLIANCE AND CONTROL ANALYST: Ivania Schneider PA-C PREOPERATIVE DIAGNOSIS: Left knee osteoarthritis POSTOPERATIVE DIAGNOSIS: Left knee osteoarthritis NAME OF OPERATION: Left total knee arthroplasty ANESTHESIA: Spinal ESTIMATED BLOOD LOSS: 0 mL COMPLICATIONS: None SPECIMENS: None DRAINS: None PREOPERATIVE ANTIBIOTICS: Ancef 2 grams IMPLANTS: 1. J&J Attune # 8 posterior stabilized femur 2. # 8 fixed-bearing tibia 3. # 8 posterior stabilized, 5 mm fixed-bearing polyethylene 4. 41 patella INDICATIONS: The patient is a 72-year-old with a longstanding history of severe, unrelenting left knee pain secondary to end-stage (grade IV) left knee osteoarthritis. Despite appropriate nonoperative management, including activity modification, anti-inflammatories, xdee-jdg-btqkjek pain medication, bracing, physical therapy, and injections they continue to have pain and disability. Operative intervention was offered. The risks, benefits and expected outcomes were discussed in detail. These included but were not limited to: Infection, bleeding, injury to blood vessel or nerve, venous thromboembolism. All questions were answered to their satisfaction. Use of an diet assistant was necessary throughout the case for patient positioning and safety, soft tissue retraction, and closure. PROCEDURE: Spinal anesthesia was administered. The patient was placed supine on the operating table. The diet assistant made sure the patient was positioned appropriately. The lower extremity was prepped and draped in the usual sterile fashion. The limb was exsanguinated with the Patrice bandage. The pneumatic tourniquet was inflated to 300 mmHg. A standard anterior incision was made with the knee in flexion. Subcutaneous dissection was sharply taken through fascial layer #1. Full-thickness medial and lateral flaps were elevated. The diet assistant retracted the soft tissues and protected them throughout the case. A standard medial parapatellar approach was made. The patella was everted. The infrapatellar fat pad was preserved. The menisci and cruciate ligaments were sharply d?brided. Marginal osteophytes were d?brided with the rongeur. The drill was used to penetrate the femoral canal. The canal was aspirated and irrigated with pulse lavage. The intramedullary femoral guide was placed for a 5-degree valgus cut, removing 12 mm off the distal femur. The saw was used to make the cut. Whitesides line and the trans epicondylar axis were marked. The femoral sizing guide was pinned onto the distal femur. Three degrees of external rotation nicely parallels the transepicondylar axis. Pins were placed for posterior referencing. The four-in-one cutting guide was pinned onto the distal femur. The anterior, posterior, and chamfer cuts were made. The diet assistant protected the collateral ligaments. The box cutting guide was pinned. The box cuts were made. The boxed trial was placed and was an excellent fit. Drill holes for the lugs were made. Attention was then turned to the proximal tibia. The extramedullary tibial guide was placed for a neutral varus/valgus cut with 5 degrees of posterior slope, removing 0 mm based off the medial tibial surface. The diet assistant protected the collateral ligaments and the neurovascular bundle. The saw was used to make the cut. Trial components were placed. The knee was nicely balanced in both flexion and extension. The trial components were removed. The tray was placed in appropriate rotation, parallel to our tibial cutting pins. It was pinned by the diet assistant and the drill and the punch were used. The tray was removed. The punch was used again. We placed a bone plug in the femoral canal. Attention was then turned to the patella. [place] [employer] patellar thickness was 25 mm. The lobster claw resection guide was used with the 9.5 mm lj. The saw was used to make the cut. Drill holes were made by the diet assistant. The trial was placed and was an excellent fit. Cancellous surfaces were irrigated with pulse lavage and thoroughly dried by the diet assistant. We cemented the tibial component, then the femoral component. We impacted the 5 mm polyethylene onto the tibial tray. The knee was brought into full extension. We then cemented the patellar component. Excessive cement was removed. The cement was allowed to harden. The knee was taken through a range of motion and was found to be nicely balanced in both flexion and extension. The patella tracks centrally. The diet assistant did a three minute dilute Betadine solution soak. The diet assistant irrigated the wound with 3 liters of normal saline via pulse lavage. The diet assistant reapproximated the extensor mechanism with #1 Vicryl in an interrupted [id number] fashion. The diet assistant then ran the extensor mechanism with a #1 PDO Stratafix. The diet assistant closed the subcutaneous tissues with a 3-0 Stratafix and the skin with a running 3-0 Stratafix in a subcuticular fashion. Glue was used to seal the skin. The diet assistant placed a dry dressing, ABIODUN stocking, and Polar Care. Sponge and needle counts were correct x2. The patient tolerated the procedure well. There were no apparent complications. They were carefully transferred to the hospital bed and taken to the postanesthesia care unit in satisfactory condition. PLAN: The patient will be mobilized with physical therapy. Aspirin will be used for DVT prophylaxis. They will be discharged to home once medically appropriate.
--- NOTE | 2022-08-25 13:58 | W.ANESCHARGE ---
Anesthesia Charges Start Date/Time Anesthesia Start Date: 08/25/22 Anesthesia Start Time: 11:28 Stop Date/Time Anesthesia Stop Date: 08/25/22 Anesthesia Stop Time: 13:56 Summary Emergency: No Extremes of Age: Over 70-CPT 08073
--- NOTE | 2022-08-25 14:51 | W.ANESCHARGE ---
Anesthesia Charges Start Date/Time Anesthesia Start Date: 08/25/22 Anesthesia Start Time: 11:28 Stop Date/Time Anesthesia Stop Date: 08/25/22 Anesthesia Stop Time: 13:56 Summary Emergency: No Extremes of Age: Over 70-CPT 07276
--- NOTE | 2022-08-25 15:47 | P.IMCN_ITS ---
Date of Consult Consult date: 08/25/22 Requesting Physician: Orthopedics Primary Care Provider: Not a Local Provider Consult Narrative Narrative: HOSPITALIST CONSULT Hospital Day # 1 Post Op Day # 0, Left total knee arthroplasty The hospital medicine team was asked by Orthopedic team to manage the patient's daily alcohol and tobacco use. There have been no perioperative concerns or questions. I updated the [facility] histories and Medications and Allergies in the Expanse tabs REVIEW OF SYSTEMS: 12-point ROS completed with patient and negative unless otherwise stated in HPI or below. PHYSICAL EXAM: CODE STATUS: FULL CODE CONSTITUTIONAL: Conversive, good historian. A/O. Knows setting and context. VITAL SIGNS: see record. HEENT: Normocephalic, atraumatic. PERRL, EOMI, conjunctivae pink, no scleral icterus. Ears and nose externally normal. Pharynx normal. NECK: No JVD. No carotid bruit, no thyromegaly, no adenopathy. CHEST: Clear to auscultation bilaterally HEART: No harsh murmurs. S1/S2. ABDOMEN: Flat, soft, nontender. Normal bowel sounds. Moderately obese. EXTREMITIES: No edema. MUSCULOSKELETAL: left knee: Surgical dressing, continuous icing in place. No obvious hematoma. Dense block. NEURO: Cranial nerves intact. Normal affect. No gross deficits. Speech intelligible. SKIN: No rashes, petechiae, concerning changes PSYCHIATRIC: Euthymic. INVESTIGATIONS: EMR Reviewed DISPOSITION: MedSurg Recovery; Discharge tomorrow DVT: Agree with ortho plan for DVT prevention GI: PO intake PFSH PFSH Medical History Alcohol dependence Sensory hearing loss, bilateral Shingles (12/18/21) Tobacco use Surgical History History of Achilles tendon repair (1989) History of cataract extraction S/P total knee arthroplasty Family History Mother Diabetes mellitus type 1 Father Myocardial infarction Social History (Updated 08/25/22 @ 15:50 by Izabel Calhoun MD) Narrative: lives in [facility]. [facility] [place] [facility]. . 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 Smokes most evenings and drinks beer most evenings Highest level of school completed/degree received: decline to answer Smoking Status: Current every day smoker What tobacco products do you use: pipe Do you use any of these nicotine containing products: None Second hand tobacco smoke exposure: No How often do you have a drink containing alcohol: 4 or more times a week Alcohol type: beer How many standard drinks containing alcohol do you have on a typical day: 1 or 2 AUDIT-C Alcohol total score: 4 Non-prescribed substance use: denies use Are you now , , , , never or living with a partner: Social isolation score (0-1 are the most socially isolated patients): 0 Meds Home Medications and Allergies Home Medications Medication Instructions Recorded Confirmed Type aspirin 81 mg tablet,delayed 81 mg PO HS 06/17/22 08/25/22 History release multivitamin 1 tab PO QAM 06/17/22 08/02/22 History Barley Life 3 cap PO QAM 08/02/22 08/02/22 History Herbal Fiber 3 cap PO QAM 08/02/22 08/02/22 History Spirulina & Chlorella 2 cap PO QAM 08/02/22 08/02/22 History Testo Prime 1 cap PO HS 08/02/22 08/02/22 History ashwagandha root extract 500 mg 500 mg PO DAILY 08/02/22 08/02/22 History capsule ikqeigi-xnyqztlqu-pjos 333 mg-133 1 tab PO DAILY 08/02/22 08/02/22 History mg-5 mg tablet fenugreek seed 610 mg capsule 610 mg PO DAILY 08/02/22 08/02/22 History Allergies Allergy/AdvReac Type Severity Reaction Status Date / Time codeine Allergy Mild Nausea Verified 08/25/22 10:18 Exam Const: Vital Signs, click to edit/add: Vital Signs - 24 hr 08/25/22 10:41 08/25/22 11:25 08/25/22 13:53 Temperature 98.2 F 97.6 F Pulse Rate 65 71 57 L Respiratory Rate 18 18 18 Blood Pressure 126/82 144/91 H 115/66 Pulse Oximetry 95 98 94 Oxygen Delivery Me thod Room Air Nasal Cannula Room Air Oxygen Flow Rate 2 08/25/22 13:55 08/25/22 14:00 08/25/22 14:10 Temperature Pulse Rate 58 L 55 L 58 L Respiratory Rate 18 18 18 Blood Pressure 116/67 123/72 131/69 Pulse Oximetry 98 98 97 Oxygen Delivery Me thod Room Air Room Air Room Air Oxygen Flow Rate 08/25/22 14:05 08/25/22 14:15 08/25/22 14:20 Temperature 97.6 F Pulse Rate 56 L 55 L 56 L Respiratory Rate 18 18 18 Blood Pressure 117/79 139/82 141/77 H Pulse Oximetry 96 96 100 Oxygen Delivery Me thod Room Air Room Air Room Air Oxygen Flow Rate Assessment and Plan Assessment and plan (1) S/P total knee arthroplasty: Problem comment: Left knee. 08/25/2022 Expect a routine postoperative course. The hospital medicine team is happy to follow through to discharge. Agree with aspirin b.i.d. for DVT prophylaxis. Status: Acute (2) Alcohol dependence: Problem comment: 3-4 beers nightly Status: Acute (3) Tobacco use: Problem comment: Declined nicotine replacement. 3-4 hand rolled cigarettes nightly. Status: Acute
[2022-08-25] MEDS: CEFAZOLIN 2 GM in 0.9 % SODIUM CHLORIDE Mini-bag 100 ML IVPB (18:16)
[2022-08-25] MEDS: ONDANSETRON 2 MG/ML inj 4 MG IVP (19:06)
--- NOTE | 2022-08-25 19:35 | PC.NURSE ---
Nursing care hours: [id number] Pt this shift back from PACU around 1425. Was feeling sensation in toes at 1600 and able to start wiggling toes and legs shortly after. Denies pain. Nausea and vomiting x2. Encouraged to stick to clear liquids for a bit longer instead of pushing food. Initially refused zofran with first episode but accepted it with the second episode. Unable to get up to ambulate or void d/t extended numbness. vitals stable, stable on room air. Requested to continue resting.
[2022-08-25] MEDS: OXYCODONE 5 MG TABLET PO (20:20)
[2022-08-25] MEDS: SENNOSIDES 1 TAB TABLET 2 TAB PO (20:21)
[2022-08-25] MEDS: ASPIRIN 81 MG TABLET EC PO (20:21)
[2022-08-25] MEDS: LORazepam 0.5 MG TABLET PO (22:10)
--- NOTE | 2022-08-25 22:13 | PC.NURSE ---
Pt was up and walked to BR A1 with walker. Steady on feet. Could not void. Brushed teeth and did HS cares. Bladder Scan showed 632cc. RN rei to begin Straight cath and Pt grew Clammy, sweat, and vomited 600cc. RN gave Pt ativan to relax and will try again in 1 hr. g notified
[2022-08-26 00:15] VITALS: BP 148/84; PULSE 62; RESP 14; TEMP 36.5; O2SAT 93
[2022-08-26] MEDS: ACETAMINOPHEN 500 MG TABLET 1000 MG PO ×3 (00:25→11:58)
[2022-08-26] MEDS: MAG HYDROX/ALUMINUM HYD/SIMETH 30 ML ORAL.SUSP PO ×2 (01:51→08:53)
[2022-08-26] MEDS: CEFAZOLIN 2 GM in 0.9 % SODIUM CHLORIDE Mini-bag 100 ML IVPB ×2 (01:51→09:45)
[2022-08-26] MEDS: LACTATED RINGERS 1000 ML 1,000 ML 75 ML IV (04:42)
[2022-08-26 04:45] VITALS: BP 133/74; PULSE 69; RESP 16; TEMP 36.9; O2SAT 93
[2022-08-26 06:54] LABS: Basophils Percent Auto 0.1 % (0.0-3.0); Hematocrit 38.4 % (37.0-53.0); Hemoglobin* 13.2 gm/dL (13.5-17.5); Immature Granulocytes Pct Auto 0.2 %; Mean Corpuscular HGB Conc 34 gm/dL (32-36); Mean Corpuscular Hemoglobin 32 pg (26-34); Mean Corpuscular Volume 92 fL (80-100); Monocytes Percent Auto 11.5 % (0.0-11.0); Neutrophils Percent Auto 83.2 % (42.0-72.0); Platelet Count* 202 K/uL (140-440); RDW Coefficient of Variation % 12.6 % (11.5-15.5); Red Blood Count 4.18 m/uL (4.30-5.90); White Blood Count* 11.11 K/uL (4.50-11.00)
[2022-08-26 07:00] VITALS: BP 117/88; PULSE 65; RESP 16; TEMP 36.9; O2SAT 95
[2022-08-26 07:27] LABS: Potassium* 4.4 mmol/L (3.6-5.1); Sodium* 134 mmol/L (135-149)
[2022-08-26 07:30] LABS: Blood Urea Nitrogen* 19 mg/dL (7-30); Creatinine* 0.8 mg/dL (0.5-1.5); Est. Creatinine Clearance* 71.12; Estimated Glomerular Filt Rate 94 ml/min
[2022-08-26 07:31] LABS: Slide Review Reflex No
[2022-08-26 07:36] LABS: INR 1.16 (0.91-1.10); Prothrombin Time 15.5 Seconds
--- NOTE | 2022-08-26 07:44 | PC.NURSE ---
END OF SHIFT NOTE: PT PLEASANT AND COOPERATIVE. VSS ON RA; AFEBRILE. PT RATES LEFT KNEE PAIN 4-8 WITH RELIEF FROM TYLENOL. LSCTA. HEARTBURN RELIEVED WITH MAALOX. AMBULATES WITH WALKER, GB, SBA. PT N/V HAS RESOLVED FOR THIS SHIFT.
[2022-08-26] MEDS: ASPIRIN 81 MG TABLET EC PO (08:49)
[2022-08-26] MEDS: SENNOSIDES 1 TAB TABLET 2 TAB PO (08:49)
[2022-08-26] MEDS: CELECOXIB 200 MG CAPSULE PO (08:50)
--- NOTE | 2022-08-26 09:18 | P.ORPN_ITS ---
Subjective Subjective Time Seen by Provider: 07:55 Date Seen: 08/26/22 Principal diagnosis: S/p day 1 left total knee arthroplasty Interval history: Angel is doing well this morning and is resting comfortably in his recliner while icing his knee. Patient reports yesterday was hell day with a significant amount of emesis and nausea. He also c/o fuzzy brain which he believes is the result of oxycodone and anthesthesia. Although today he is feeling significantly better. Denies chest pain, SOB, fever, chills, emesis. Admits to mild nausea. Patient does not wish to take oxycodone postoperatively. Ortho Exam Narrative Exam Narrative: Incision/Dressing: Dressing appears clean and dry. No drainage present. Mepilex intact. Left knee appears moderately swollen but supple with no obvious erythema, fluctuance or excessive warmth. No ecchymosis or erythematous streaking. Warmth around the wound is appropriate. Ice is being utilized as needed. CMS: Intact distally with 2+ Dorsalis pedis and Posterior Tibial pulses. 5/5 motor strength dorsal and plantar flexion. Confirmed sensation distally. Intact straight leg raise. Calf: Bilateral calves are supple, with no swelling, pain, tenderness, erythema, discoloration or coolness to the touch. Constitutional: Patient is alert and oriented x3. Patient is in no acute distress and converses without labored breathing. Patient is able to make decisions and demonstrates good insight. Patient is pleasant and cooperative. Affect is full range and appropriate for the circumstances. Const Vital Signs, click to edit/add: Vital Signs - 24 hr 08/25/22 10:41 08/25/22 11:25 08/25/22 13:53 Temperature 98.2 F 97.6 F Pulse Rate 65 71 57 L Pulse Rate [Right Pulse Oximeter] Respiratory Rate 18 18 18 Blood Pressure 126/82 144/91 H 115/66 Blood Pressure [Left Arm] Pulse Oximetry 95 98 94 Oxygen Delivery Method Room Air Nasal Cannula Room Air Oxygen Flow Rate 2 08/25/22 13:55 08/25/22 14:00 08/25/22 14:10 Temperature Pulse Rate 58 L 55 L 58 L Pulse Rate [Right Pulse Oximeter] Respiratory Rate 18 18 18 Blood Pressure 116/67 123/72 131/69 Blood Pressure [Left Arm] Pulse Oximetry 98 98 97 Oxygen Delivery Method Room Air Room Air Room Air Oxygen Flow Rate 08/25/22 14:05 08/25/22 14:15 08/25/22 14:20 Temperature 97.6 F Pulse Rate 56 L 55 L 56 L Pulse Rate [Right Pulse Oximeter] Respiratory Rate 18 18 18 Blood Pressure 117/79 139/82 141/77 H Blood Pressure [Left Arm] Pulse Oximetry 96 96 100 Oxygen Delivery Method Room Air Room Air Room Air Oxygen Flow Rate 08/25/22 18:31 08/25/22 14:45 08/25/22 19:09 Temperature 97.3 F L 98 F Pulse Rate 56 L Pulse Rate [Right Pulse Oximeter] 54 L 64 Respiratory Rate 16 16 16 Blood Pressure Blood Pressure [Left Arm] 130/75 127/74 140/83 H Pulse Oximetry 95 93 Oxygen Delivery Method Room Air Room Air Room Air Oxygen Flow Rate 2 08/25/22 15:15 08/25/22 15:30 08/25/22 16:00 Temperature 97.6 F Pulse Rate Pulse Rate [Right Pulse Oximeter] 58 L 55 L 52 L Respiratory Rate 16 Blood Pressure Blood Pressure [Left Arm] 131/87 144/86 H 129/76 Pulse Oximetry 95 95 98 Oxygen Delivery Method Room Air Room Air Room Air Oxygen Flow Rate 08/25/22 18:00 08/25/22 19:39 08/25/22 19:52 Temperature 98 F 98 F Pulse Rate Pulse Rate [Right Pulse Oximeter] 63 64 Respiratory Rate 16 16 Blood Pressure Blood Pressure [Left Arm] 139/81 140/83 H Pulse Oximetry 96 93 Oxygen Delivery Method Room Air Room Air Oxygen Flow Rate 0 08/25/22 20:19 08/25/22 21:12 08/25/22 21:38 Temperature 98 F 98 F 98 F Pulse Rate Pulse Rate [Right Pulse Oximeter] 66 64 84 Respiratory Rate 16 16 16 Blood Pressure Blood Pressure [Left Arm] 129/80 124/80 128/68 Pulse Oximetry 95 95 96 Oxygen Delivery Method Room Air Room Air Room Air Oxygen Flow Rate 0 0 0 08/26/22 00:15 08/26/22 00:15 08/26/22 04:45 Temperature 97.7 F 98.5 F Pulse Rate Pulse Rate [Right Pulse Oximeter] 62 62 69 Respiratory Rate 14 14 16 Blood Pressure Blood Pressure [Left Arm] 148/84 H 133/74 Pulse Oximetry 93 93 Oxygen Delivery Method Room Air Room Air Oxygen Flow Rate 0 0 Documenting provider has reviewed patient's vital signs: yes Assessment and Plan Assessment and plan (1) S/P total knee arthroplasty: Problem details: S/p day 1 left total knee arthroplasty (Dr. Paniagua) Status: Acute Assessment and Plan: - Complete 23 hour perioperative antibiotics. - PT/OT consults for education and assistance. - Social consult for discharge planning. - Weight bear as tolerated. - DVT prophylaxis includes: aspirin 81 mg BID x 1 month. Also bilateral knee high Wilian stockings (x 1 month), frequent ambulation and ankle pumps when sedentary. - Anticipate patient will be discharged to home this afternoon if the patient remains medically stable, pain is controlled and is safe with ambulation. - Outpatient physical therapy will be at [facility] in [place] starting Monday. - Return to clinic in 1 week for a wound check. Mepilex dressing will be removed at this appointment. Remove sooner if dressing becomes saturated. - Return to clinic in [address] Paniagua. - Prescribed analgesics as needed. Patient does not wish for a narcotic pain medication. A script for Oxycodone was still sent to his pharmacy in the event it is needed over the upcoming weekend. - Antiemetic medication also sent to [facility] to take as needed for nausea. - Phone Orthopedics with any questions or concerns. (2) Alcohol dependence: Status: Acute (3) Tobacco use: Status: Acute
[2022-08-26] MEDS: ONDANSETRON 2 MG/ML inj 4 MG IVP (09:40)
[2022-08-26 10:01] VITALS: BP 141/77; PULSE 56; RESP 16; TEMP 36.9
--- NOTE | 2022-08-26 12:02 | PC.NURSE ---
Discharge: Patient pleasant and cooperative. Patient vitally stable, lungs clear, BS WNL, IV removed catheter intact. Patient 1 assist, walker, gb. Patient rates pain at most 8/10, tylenol given once, patient declined oxycodone. Zophran given once for nausea. Patient tolerating regular diet and urinating. Patient signed belongings sheet and discharge form, and had no further questions regarding discharge. Left knee dressing C/D/I. Patient left the floor by wheelchair at 1201 with is belongings.
== END 2022-08-26 12:01 | disposition home or self-care (01) ==
LOC: OR 10:21 → MEDSURG 10:22
PROVIDERS: Visit Provider Orthopaedic Surgery
PROC: (CPT 27447; principal; 2022-08-25 13:00)
DX: M17.12 Unilateral primary osteoarthritis, left knee (principal); M25.562 Pain in left knee; R11.2 Nausea with vomiting, unspecified; F10.20 Alcohol dependence, uncomplicated; F17.290 Nicotine dependence, other tobacco product, uncomplicated
CPT/HCPCS: 27447; 1400; 1402; 36415; 51702; 51798; 64447; 64454; 73560; 76942; 82565; 84132; 84295; 84520; 85025; 85610; 97110; 97116; 97161; 97165; 97535; 99100; A9270; C1776; J0690; J1100; J2250; J2370; J2405; J2704; J2795; J3010; J7120

== ENCOUNTER 2023-08-22 06:05 | Day surgery (SDC) | payer OTHER, SELFPAY ==
[2023-08-22] VITALS (21 sets, daily range): BP systolic 107–145; BP diastolic 63–91; PULSE 51–90; RESP 12–20; TEMP 36.2–36.7; O2SAT 93–99; BMI 29.0
[2023-08-22] MEDS: LACTATED RINGERS 1000 ML 1,000 ML 100 ML IV (05:50)
[2023-08-22] MEDS: ACETAMINOPHEN 500 MG TABLET 1000 MG PO ×2 (06:30→17:57)
[2023-08-22] MEDS: OXYCODONE (CR) 10 MG TAB.ER.12H PO (06:30)
[2023-08-22] MEDS: CELECOXIB 200 MG CAPSULE PO (06:30)
[2023-08-22] MEDS: MIDAZOLAM HCL 1 MG/ML inj IVP (07:08)
[2023-08-22] MEDS: fentaNYL 100 MCG/2 ML inj IVP (07:08)
[2023-08-22] MEDS: CEFAZOLIN 2 GM INJ IVP (07:25)
[2023-08-22] MEDS: TRANEXAMIC ACID 100 MG/ML INJ 1000 MG IV (07:25)
--- NOTE | 2023-08-22 08:13 | SUR.PREOP ---
TIME?OUT:?05 PT/RN/MDA?VERIFICATION?OF?SURGICAL?SITE,?PROCEDURE,?AND?CONSENT OBTAINED?PRIOR?TO?INVASIVE?PROCEDURE.
--- NOTE | 2023-08-22 08:52 | CRLHL7_ITS ---
For Patients: As a result of the Cures Act, medical imaging exams and procedure reports are released immediately into your electronic medical record. You may view this report before your referring provider. If you have questions, please contact your health care provider. Indication: post op TKA Technique: Two views right knee Findings/Impression: Hardware from a right total knee arthroplasty is in satisfactory position. Bone alignment is normal. No sign of acute fracture. Postop changes are within normal limits. Dictated by Angel Godfrey MD @ 08/22/2023 10:33:17 AM (Electronically Signed)
--- NOTE | 2023-08-22 08:58 | PM.ORPRC ---
Procedure Note Date of procedure: 08/22/23 Procedure: PREOPERATIVE DIAGNOSIS: Right knee osteoarthritis POSTOPERATIVE DIAGNOSIS: Right knee osteoarthritis NAME OF OPERATION: Right total knee arthroplasty SURGEON: Jack Paniagua MD FORECLOSURE SPECIALIST: Ivania Schneider PA-C ANESTHESIA: Spinal ESTIMATED BLOOD LOSS: 0 mL COMPLICATIONS: None SPECIMENS: None DRAINS: None PREOPERATIVE ANTIBIOTICS: Ancef 2 grams IMPLANTS: 1. J&J Attune # 8 posterior stabilized femur 2. # 8 fixed-bearing tibia 3. # 8 posterior stabilized, 5 mm fixed-bearing polyethylene 4. 41 patella INDICATIONS: The patient is a 73-year-old with a longstanding history of severe, unrelenting right knee pain secondary to end-stage (grade IV) right knee osteoarthritis. Despite appropriate nonoperative management, including activity modification, anti-inflammatories, prhi-hek-okdampu pain medication, bracing, physical therapy, and injections they continue to have pain and disability. Operative intervention was offered. The risks, benefits and expected outcomes were discussed in detail. These included but were not limited to: Infection, bleeding, injury to blood vessel or nerve, venous thromboembolism. All questions were answered to their satisfaction. Use of an assistant controller was necessary throughout the case for patient positioning and safety, soft tissue retraction, and closure. PROCEDURE: Spinal anesthesia was administered. The patient was placed supine on the operating table. The assistant controller made sure the patient was positioned appropriately. The lower extremity was prepped and draped in the usual sterile fashion. The limb was exsanguinated with the Patrice bandage. The pneumatic tourniquet was inflated to 300 mmHg. A standard anterior incision was made with the knee in flexion. Subcutaneous dissection was sharply taken through fascial layer #1. Full-thickness medial and lateral flaps were elevated. The assistant controller retracted the soft tissues and protected them throughout the case. A standard medial parapatellar approach was made. The patella was everted. The infrapatellar fat pad was preserved. The menisci and cruciate ligaments were sharply d?brided. Marginal osteophytes were d?brided with the rongeur. The drill was used to penetrate the femoral canal. The canal was aspirated and irrigated with pulse lavage. The intramedullary femoral guide was placed for a 5-degree valgus cut, removing 10 mm off the distal femur. The saw was used to make the cut. Whitesides line and the trans epicondylar axis were marked. The femoral sizing guide was pinned onto the distal femur. Three degrees of external rotation nicely parallels the transepicondylar axis. Pins were placed for posterior referencing. The four-in-one cutting guide was pinned onto the distal femur. The anterior, posterior, and chamfer cuts were made. The assistant controller protected the collateral ligaments. The box cutting guide was pinned. The box cuts were made. The boxed trial was placed and was an excellent fit. Drill holes for the lugs were made. Attention was then turned to the proximal tibia. The extramedullary tibial guide was placed for a neutral varus/valgus cut with 5 degrees of posterior slope, removing 2 mm based off the medial tibial surface. The assistant controller protected the collateral ligaments and the neurovascular bundle. The saw was used to make the cut. Trial components were placed. The knee was nicely balanced in both flexion and extension. The trial components were removed. The tray was placed in appropriate rotation, parallel to our tibial cutting pins. It was pinned by the assistant controller and the drill and the punch were used. The tray was removed. The punch was used again. We placed a bone plug in the femoral canal. Attention was then turned to the patella. [place] patellar thickness was 24 mm. The lobster claw resection guide was used with the 9.5 mm lj. The saw was used to make the cut. Drill holes were made by the assistant controller. The trial was placed and was an excellent fit. Cancellous surfaces were irrigated with pulse lavage and thoroughly dried by the assistant controller. We cemented the tibial component, then the femoral component. We impacted the 5 mm polyethylene onto the tibial tray. The knee was brought into full extension. We then cemented the patellar component. Excessive cement was removed. The cement was allowed to harden. The knee was taken through a range of motion and was found to be nicely balanced in both flexion and extension. The patella tracks centrally. The assistant controller did a three minute dilute Betadine solution soak. The assistant controller irrigated the wound with 3 liters of normal saline via pulse lavage. The assistant controller reapproximated the extensor mechanism with #1 Vicryl in an interrupted [id number] fashion. The assistant controller then ran the extensor mechanism with a #1 PDO Stratafix. The assistant controller closed the subcutaneous tissues with a 3-0 Stratafix and the skin with a running 3-0 Stratafix in a subcuticular fashion. Glue was used to seal the skin. The assistant controller placed a dry dressing, ABIODUN stocking, and Polar Care. Sponge and needle counts were correct x2. The patient tolerated the procedure well. There were no apparent complications. They were carefully transferred to the hospital bed and taken to the postanesthesia care unit in satisfactory condition. PLAN: The patient will be mobilized with physical therapy. Aspirin will be used for DVT prophylaxis. They will be discharged to home once medically appropriate.
--- NOTE | 2023-08-22 09:14 | P.NB_ITS ---
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 Images saved: Yes Medications given in 5ml increments after negative aspiration: Ropivicaine %: 0.5 mL: 20 Needle gauge: 20 Decadron (mg): 10 Precedex (mcg): 25 Patient tolerated procedure well: Yes Additional comments: Needle noted adjacent to nerve Block Charges Block Charge (with Pro Fee): Femoral Nerve Use of Ultrasound Machine for Block: Yes- US Guidance/pain block
--- NOTE | 2023-08-22 09:15 | P.NB_ITS ---
Nerve Block Nerve Block Time Seen by Provider: 07:08 Date Seen: 08/22/23 Type of block requested by surgeon for post-operative analgesia: geniculars Side: right Time out performed: Yes Verification of patient name: Yes Verification of date of : Yes Site marking: site marked Name of person performing procedure: Yaw Continuous monitoring Was continuous monitoring of O2 sat, B/P, song and dance performer, recorded every 15 minutes?: Yes Procedure Checklist: sterile prep, needles and gloves Medications given in 5ml increments after negative aspiration: Ropivicaine %: 0.5 mL: 9 Needle gauge: 25 Patient tolerated procedure well: Yes Block Charges Block Charge (with Pro Fee): Genicular Nerve Block Use of Ultrasound Machine for Block: No
--- NOTE | 2023-08-22 09:16 | W.ANESCHARGE ---
Anesthesia Charges Start Date/Time Anesthesia Start Date: 08/22/23 Anesthesia Start Time: 07:14 Stop Date/Time Anesthesia Stop Date: 08/22/23 Anesthesia Stop Time: 09:48 Summary Extremes of Age - Over 70 or under 1: MDA
--- NOTE | 2023-08-22 09:46 | W.ANESCHARGE ---
Anesthesia Charges Start Date/Time Anesthesia Start Date: 08/22/23 Anesthesia Start Time: 07:14 Stop Date/Time Anesthesia Stop Date: 08/22/23 Anesthesia Stop Time: 09:48
--- NOTE | 2023-08-22 10:19 | SUR.PHASEI ---
patient met discharge criteria per anesthesia.
[2023-08-22] MEDS: LACTATED RINGERS 1000 ML 1,000 ML 35 ML IV (11:00)
--- NOTE | 2023-08-22 11:03 | SUR.OPER ---
PATIENT QUESTIONS ANSWERED SATISFACTORILY PREOPERATIVELY.? PATIENT BROUGHT TO OR #2 PER CART AFTER ADMINISTRATION OF A BLOCK.? Patient positioned supine on OR #2 bed.? The perioperative?team supported arms bilaterally on arm boards.?Final approval of positioning by surgeon.?
[2023-08-22] MEDS: ONDANSETRON 2 MG/ML inj 4 MG IVP (13:45)
[2023-08-22] MEDS: CEFAZOLIN 2 GM in 0.9 % SODIUM CHLORIDE Mini-bag 100 ML IVPB ×2 (15:12→23:32)
[2023-08-22] MEDS: HYDROmorphone 2 MG TABLET PO (17:57)
--- NOTE | 2023-08-22 18:27 | PC.NURSE ---
End of Shift Note: Patient has surgery today for a R TKA. Upon arrival he was having nausea which has pretty much stayed with him most of the day even after receiving nausea medication. Also tried saltine crackers. He did have a 200 cc emesis but then was able to eat dinner without difficulty. Did have tylenol schedule which also gave him 2 mg dilaudid as spinal is starting to wear off. He has not voided yet since he returned from surgery will attempt to have him use the urinal shortly. Has taken in about 500 cc of water so far this shift will continue to monitor.
--- NOTE | 2023-08-22 20:34 | P.IMCN_ITS ---
Date of Consult Patient: Other Consult date: 08/22/23 Requesting Physician: Orthopedics Primary Care Provider: Not a Local Provider Consult Narrative Reason for consult: 73-year-old male admitted to the hospital for right total knee arthroplasty Narrative: Angel Ruano is a 73 year old male admitted to the hospital for right total knee arthroplasty. Procedures performed by Dr. Paniagua. He requests consultation for management of medical problems postoperatively. Patient reports being nauseated and having recurrent emesis postoperatively. He says this is normal for him after receiving anesthesia. He does not otherwise normally have any gastrointestinal problems. He reports otherwise feeling well. He is not having a lot of pain. No shortness of breath. Emesis has been nonbloody. Preoperatively he was doing well. No recent illness or injury. Review of Systems Narrative: Patient has no other concerns today other than his postoperative vomiting [facility] Medical History (Updated 08/22/23 @ 20:41 by Matthew Epstein MD) Alcohol dependence ?F10.20 - Alcohol dependence, uncomplicated (ICD-10) Sensory hearing loss, bilateral ?H90.3 - Sensorineural hearing loss, bilateral (ICD-10) Tobacco use ?Z72.0 - Tobacco use (ICD-10) Shingles (12/18/21) ?B02.9 - Zoster without complications (ICD-10) Surgical History (Updated 08/22/23 @ 20:41 by Matthew Epstein MD) History of arthroplasty of right knee ?Z96.651 - Presence of right artificial knee joint (ICD-10) History of cataract extraction ?Z98.49 - Cataract extraction status, unspecified eye (ICD-10) S/P total knee arthroplasty (08/25/22) ?Z96.659 - Presence of unspecified artificial knee joint (ICD-10) History of Achilles tendon repair (1989) ?Z98.890 - Other specified postprocedural states (ICD-10) Family History Mother Diabetes mellitus type 1 Father Myocardial infarction Social History Narrative: lives in [facility]. Goes to the [place] for his health care. . 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 Smokes most evenings and drinks beer most evenings Highest level of school completed/degree received: decline to answer Smoking Status: Current every day smoker What tobacco products do you use: pipe Do you use any of these nicotine containing products: None Second hand tobacco smoke exposure: No How often do you have a drink containing alcohol: 4 or more times a week Alcohol type: beer How many standard drinks containing alcohol do you have on a typical day: 1 or 2 AUDIT-C Alcohol total score: 4 Non-prescribed substance use: denies use Are you now , , , , never or living with a partner: Social isolation score (0-1 are the most socially isolated patients): 0 Meds Home Medications and Allergies Home Medications Medication Instructions Recorded Confirmed Type multivitamin 1 tab PO QAM 06/17/22 07/12/23 History Barley Life 3 cap PO QAM 08/02/22 07/12/23 History Herbal Fiber 3 cap PO QAM 08/02/22 07/12/23 History Spirulina & Chlorella 2 cap PO QAM 08/02/22 07/12/23 History Testo Prime 1 cap PO HS 08/02/22 07/12/23 History ashwagandha root extract 500 mg 500 mg PO DAILY 08/02/22 07/12/23 History capsule Allergies Allergy/AdvReac Type Severity Reaction Status Date / Time codeine Allergy Mild Nausea Verified 07/12/23 08:23 oxycodone AdvReac Nausea Verified 07/12/23 08:23 Exam Narrative: Exam Narrative: He is alert and appears in no distress. He gives his own history. Oropharynx is normal. Neck is supple without mass or adenopathy. Respirations are clear to auscultation. Cardiovascular: S1, S2, regular rate and rhythm. One to 2/6 systolic ejection murmur. Abdomen is soft without tenderness or mass. Extremities with intact pulses and intact sensation and motion. No edema. When I see him on 2 occasions 4 hours apart on both occasions he has an emesis. Const: Vital Signs, click to edit/add: Vital Signs - 24 hr 08/22/23 06:51 08/22/23 07:08 08/22/23 07:13 Temperature 97.8 F Pulse Rate 58 L 62 60 Pulse Rate [Left P ulse Oximeter] Respiratory Rate 16 16 14 Blood Pressure 126/86 124/81 107/72 Blood Pressure [Ri ght Arm] Pulse Oximetry 98 96 96 Oxygen Delivery Me thod Room Air Nasal Cannula Nasal Cannula Oxygen Flow Rate 2 2 08/22/23 09:43 08/22/23 09:45 08/22/23 09:50 Temperature 97.3 F L 97.3 F L 97.3 F L Pulse Rate 69 66 60 Pulse Rate [Left P ulse Oximeter] Respiratory Rate 12 12 13 Blood Pressure 108/68 115/63 114/73 Blood Pressure [Ri ght Arm] Pulse Oximetry 96 95 96 Oxygen Delivery Me thod Room Air Room Air Room Air Oxygen Flow Rate 08/22/23 09:55 08/22/23 10:00 08/22/23 10:05 Temperature 97.3 F L 97.3 F L 97.3 F L Pulse Rate 58 L 58 L 59 L Pulse Rate [Left P ulse Oximeter] Respiratory Rate 13 13 12 Blood Pressure 127/84 127/84 145/65 H Blood Pressure [Ri ght Arm] Pulse Oximetry 95 95 97 Oxygen Delivery Me thod Room Air Room Air Room Air Oxygen Flow Rate 08/22/23 10:10 08/22/23 10:18 08/22/23 10:30 Temperature 97.3 F L 97.8 F Pulse Rate 55 L 51 L 54 L Pulse Rate [Left P ulse Oximeter] Respiratory Rate 12 16 16 Blood Pressure 124/90 H 143/91 H 136/81 Blood Pressure [Ri ght Arm] Pulse Oximetry 96 96 96 Oxygen Delivery Me thod Room Air Room Air Oxygen Flow Rate 08/22/23 10:45 08/22/23 11:00 08/22/23 11:30 Temperature 98.0 F Pulse Rate 59 L 52 L Pulse Rate [Left P ulse Oximeter] 58 L Respiratory Rate 16 16 18 Blood Pressure 130/80 132/80 Blood Pressure [Ri ght Arm] 137/82 Pulse Oximetry 95 95 99 Oxygen Delivery Me thod Room Air Room Air Room Air Oxygen Flow Rate 08/22/23 12:34 08/22/23 13:30 08/22/23 15:34 Temperature 98.0 F 97.6 F 97.2 F L Pulse Rate Pulse Rate [Left P ulse Oximeter] 62 54 L 54 L Respiratory Rate 18 20 18 Blood Pressure Blood Pressure [Ri ght Arm] 135/78 134/74 132/72 Pulse Oximetry 97 97 94 Oxygen Delivery Me thod Room Air Room Air Room Air Oxygen Flow Rate 08/22/23 16:00 Temperature 97.6 F Pulse Rate Pulse Rate [Left P ulse Oximeter] 90 Respiratory Rate 18 Blood Pressure Blood Pressure [Ri ght Arm] 129/76 Pulse Oximetry 97 Oxygen Delivery Me thod Room Air Oxygen Flow Rate Documenting provider has reviewed patient's vital signs: yes Assessment and Plan Assessment and plan (1) Postoperative vomiting: Problem comment: Currently a problem. Was also problem 1 year ago with knee arthroplasty Status: Acute (2) History of arthroplasty of right knee: Problem comment: Dr. Paniagua 08/22/2023 no complications Status: Acute Plan Patient is admitted for postoperative care including pain control, therapy, managing current vomiting. If vomiting resolves he likely be able to go home tomorrow. Background history of possible alcohol dependence and alcohol withdrawal. Total time spent today is 40 minutes, 30 minutes in coordination of care discussing with patient and other providers management of postoperative vomiting and recovery from surgery
[2023-08-22] MEDS: SENNOSIDES 1 TAB TABLET 2 TAB PO (22:02)
[2023-08-22] MEDS: ASPIRIN 81 MG TABLET EC PO (22:02)
[2023-08-22] MEDS: LACTATED RINGERS 1000 ML 1,000 ML 75 ML IV (22:04)
[2023-08-22] MEDS: MAG HYDROX/ALUMINUM HYD/SIMETH 30 ML ORAL.SUSP PO (23:27)
[2023-08-22] MEDS: 0.9 % SODIUM CHLORIDE 500 ML IV (23:55)
[2023-08-23] MEDS: PROCHLORPERAZINE 5 MG/ML VIAL 10 MG IV (01:20)
[2023-08-23] MEDS: ACETAMINOPHEN 500 MG TABLET 1000 MG PO ×2 (01:34→07:58)
[2023-08-23 03:00] VITALS: BP 122/64; PULSE 89; RESP 18; TEMP 36.9; O2SAT 94
--- NOTE | 2023-08-23 06:14 | PC.NURSE ---
Patient pleasant, alert and oriented. Ambulates and transfers with assist of one, gait belt and walker. Tolerating sips of water. Emesis after eating supper and after taking PRN antacid. PRN Compazine IVP effective. Denies pain. Urinated 250mL in urinal. Had no other urine output since prior to surgery. Bladder scan performed and over 350mL of urine was present. Patient was straight cathed at that time. 350mL of urine was drained.?
[2023-08-23 06:32] LABS: Basophils Percent Auto 0.1 % (0.0-3.0); Hematocrit 35.2 % (37.0-53.0); Hemoglobin* 12.1 gm/dL (13.5-17.5); Immature Granulocytes Pct Auto 0.2 %; Lymphocytes Percent Auto 5.3 % (20-44); Mean Corpuscular HGB Conc 34 gm/dL (32-36); Mean Corpuscular Hemoglobin 32 pg (26-34); Mean Corpuscular Volume 93 fL (80-100); Monocytes Percent Auto 10.1 % (0.0-11.0); Neutrophils Percent Auto 84.3 % (42.0-72.0); Platelet Count* 205 K/uL (140-440); RDW Coefficient of Variation % 12.2 % (11.5-15.5); Red Blood Count 3.77 m/uL (4.30-5.90)
[2023-08-23 06:33] LABS: Slide Review Reflex No
[2023-08-23 06:46] LABS: INR 1.05 (0.91-1.10); Prothrombin Time 14.3 Seconds
[2023-08-23 06:51] LABS: Sodium* 129 mmol/L (135-149)
[2023-08-23 06:54] LABS: Creatinine* 0.7 mg/dL (0.5-1.5); Est. Creatinine Clearance* 72.21; Estimated Glomerular Filt Rate 97 ml/min
[2023-08-23 06:55] LABS: Blood Urea Nitrogen* 17 mg/dL (7-30)
[2023-08-23 07:00] VITALS: BP 138/72; PULSE 77; RESP 18; TEMP 36.9; O2SAT 92
[2023-08-23 07:26] LABS: Potassium* 3.9 mmol/L (3.6-5.1)
[2023-08-23] MEDS: SENNOSIDES 1 TAB TABLET 2 TAB PO (07:57)
[2023-08-23] MEDS: ASPIRIN 81 MG TABLET EC PO (07:58)
--- NOTE | 2023-08-23 08:10 | P.ORPN_ITS ---
Subjective Subjective Time Seen by Provider: 07:10 Date Seen: 08/23/23 Principal diagnosis: Status post right knee replacement Interval history: Angel is comfortable this morning. Nausea and vomiting has ceased. He is able to void this morning. He is eating breakfast. He is looking forward to discharging to home. Ortho Exam Narrative Exam Narrative: Alert and oriented x3. Patient is in no acute distress. Converses without labored breathing. Hearing is grossly intact. Ambulates with a walker. Examination of the right knee shows dressing is intact. Minimal edema. Minimal effusion. CMS intact right lower extremity. Able to straight leg raise. Bilateral calves are soft and nontender. No erythema or warmth or sign of inf ection. Const Vital Signs, click to edit/add: Vital Signs - 24 hr 08/22/23 09:43 08/22/23 09:45 08/22/23 09:50 Temperature 97.3 F L 97.3 F L 97.3 F L Pulse Rate 69 66 60 Pulse Rate [Left Pulse Oximeter] Respiratory Rate 12 12 13 Blood Pressure 108/68 115/63 114/73 Blood Pressure [Right Arm] Pulse Oximetry 96 95 96 Oxygen Delivery Method Room Air Room Air Room Air 08/22/23 09:55 08/22/23 10:00 08/22/23 10:05 Temperature 97.3 F L 97.3 F L 97.3 F L Pulse Rate 58 L 58 L 59 L Pulse Rate [Left Pulse Oximeter] Respiratory Rate 13 13 12 Blood Pressure 127/84 127/84 145/65 H Blood Pressure [Right Arm] Pulse Oximetry 95 95 97 Oxygen Delivery Method Room Air Room Air Room Air 08/22/23 10:10 08/22/23 10:18 08/22/23 10:30 Temperature 97.3 F L 97.8 F Pulse Rate 55 L 51 L 54 L Pulse Rate [Left Pulse Oximeter] Respiratory Rate 12 16 16 Blood Pressure 124/90 H 143/91 H 136/81 Blood Pressure [Right Arm] Pulse Oximetry 96 96 96 Oxygen Delivery Method Room Air Room Air 08/22/23 10:45 08/22/23 11:00 08/22/23 11:30 Temperature 98.0 F Pulse Rate 59 L 52 L Pulse Rate [Left Pulse Oximeter] 58 L Respiratory Rate 16 16 18 Blood Pressure 130/80 132/80 Blood Pressure [Right Arm] 137/82 Pulse Oximetry 95 95 99 Oxygen Delivery Method Room Air Room Air Room Air 08/22/23 12:34 08/22/23 13:30 08/22/23 15:34 Temperature 98.0 F 97.6 F 97.2 F L Pulse Rate Pulse Rate [Left Pulse Oximeter] 62 54 L 54 L Respiratory Rate 18 20 18 Blood Pressure Blood Pressure [Right Arm] 135/78 134/74 132/72 Pulse Oximetry 97 97 94 Oxygen Delivery Method Room Air Room Air Room Air 08/22/23 16:00 08/22/23 20:07 08/22/23 23:00 Temperature 97.6 F 97.4 F L 98.0 F Pulse Rate Pulse Rate [Left Pulse Oximeter] 90 82 79 Respiratory Rate 18 16 16 Blood Pressure Blood Pressure [Right Arm] 129/76 140/87 H 132/87 Pulse Oximetry 97 94 93 Oxygen Delivery Method Room Air Room Air Room Air 08/23/23 03:00 08/23/23 07:00 Temperature 98.4 F 98.4 F Pulse Rate Pulse Rate [Left Pulse Oximeter] 89 77 Respiratory Rate 18 18 Blood Pressure Blood Pressure [Right Arm] 122/64 138/72 Pulse Oximetry 94 92 Oxygen Delivery Method Room Air Room Air Assessment and Plan Assessment and plan (1) History of arthroplasty of right knee: Problem details: Dr. Paniagua 08/22/2023 Status: Acute Assessment and Plan: Plan for discharge is today to home if they meet discharge criteria. DVT prophylaxis includes aspirin 81 mg twice daily x1 month, Wilian stockings x1 month may remove for 1 hr per day, frequent ambulation Remove dressing in 1 week. Observe wound and phone Orthopedics with any questions or concerns Return to clinic in 1 week for a wound check Return to clinic in 6 weeks with surgeon Minimize narcotic use. Wean off and discontinue soon as possible. Activities as tolerated. No strenuous activity. Outpatient physical therapy as scheduled. Ice and elevate the operative extremity. No restriction on ice. Antiemetic medication sent to his pharmacy. He will minimize Dilaudid. He may use only Tylenol for pain relief.
--- NOTE | 2023-08-23 10:58 | PC.NURSE ---
PATIENT PLEASANT AND COOPERATIVE, ALERT AND ORIENTED, UP SBA WITH WALKER AND BELT, TOLERATING REGULAR DIET NO NAUSEA, RATING PAIN 3/10 BEING MANAGED WITH SCHEDULED TYLENOL, DRESSING CDI, CYRO CUFF TO RIGHT KNEE, PATIENT DISCHARGED TO HOME AROUND 1030 IV DC'D AND PATIENT VERBALIZED UNDERSTANDING OF DISCHARGE INFORMATION.
== END 2023-08-23 10:30 | disposition home or self-care (01) ==
LOC: OR 10:19 → MEDSURG 13:30
PROVIDERS: Visit Provider Orthopaedic Surgery
PROC: (CPT 27447; principal; 2023-08-22 07:15)
DX: M17.11 Unilateral primary osteoarthritis, right knee (principal); G89.18 Other acute postprocedural pain
CPT/HCPCS: 27447; 01402; 36415; 64447; 64454; 73560; 76942; 82565; 84132; 84295; 84520; 85025; 85610; 97110; 97116; 97161; 97165; 97535; 99100; A9270; C1776; J0690; J0780; J1100; J2250; J2405; J2704; J2795; J3010; J7120